=== PATIENT | male | born 1935 | race Caucasian/White ===

== ENCOUNTER 2019-07-29 08:00 | Outpatient (CLI) | payer MEDICARE, OTHER, SELFPAY | END 2019-07-29 09:00 | disposition home or self-care (01) | LOC: SPT 12-29 15:03 | PROVIDERS: PCP Family Medicine; Referring Provider Orthopaedic Surgery; Visit Provider Orthopaedic Surgery | DX: Z46.89 Encounter for fitting and adjustment of other specified devices (principal); M17.12 Unilateral primary osteoarthritis, left knee | CPT/HCPCS: L1812 ==

== ENCOUNTER 2019-10-19 09:47 | Day surgery (SDC) | payer MEDICARE, OTHER, SELFPAY ==
--- NOTE | 2019-10-12 12:34 | ANES.PREANE2 ---
Pre-Anesthetic Assessment Pre-Anesthetic Assessment: Height/Weight: Height 1.68 m Weight 72.575 kg Preop Diagnosis: DJD left knee Proposed Procedure: Operation Date: 10/19/19 12:00 Proposed Procedures p Total Knee Arthroplasty w/ imageless computer navigation 20326 [id number] M17.0(Left) - Franklin Newton DO Familial anesthetic complications: None Social: Social History: No alcohol and No tobacco Comment: chews tobacco Exam: Pre-Anes Outpt Exam: alert, oriented x 3, clear to auscultation bilaterally and regular rate & rhythm Airway: Cervical ROM: WNL MP: 4 Dentition: Full Pulmonary: Pulmonary: None reported CV/HEM: CV/HEM: HTN : : None reported Hepatic: Hepatic: None reported GI: GI: PUD Metabolic: Metabolic: Hyperlipidemia Neuropsych: Neuropsych: None reported Anesthetic Plan: ASA status: 2 Anesthesia: General and Regional (specify below) Risk of > 500 ml blood loss (7ml/kg in children): No PFSH Anesthesia PFSH: Medical History Acute cystitis with hematuria Acute kidney injury 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 Mother , GANGRENE IN STOMACH No problems noted. Social History Smoking and tobacco status: unknown if ever smoked Alcohol intake: never Adopted: No Caregiver/support person: No Lives independently: No Household members: spouse Marital status: Current occupational status: retired Data Anesthesia Cardiac Studies: No Data to Display
[2019-10-12 12:49] LABS: Basophils % 0.4 %; Eosinophils % 0.2 %; Hematocrit 33.4 % (42.0-52.0); Hemoglobin 10.1 g/dL (11.7-16.6); Lymphocytes % 9.9 %; Mean Corpuscular HGB Conc 30.2 g/dL (30.0-36.0); Mean Corpuscular Hemoglobin 27.9 pg (28.0-34.0); Mean Corpuscular Volume 92.3 fL (80-94); Mean Platelet Volume 9.4 fL (7.4-10.4); Monocytes # 0.7 10^3/uL (0.2-0.9); Monocytes % 7.1 %; Neutrophils # 8.3 10^3/uL (1.8-7.7); Neutrophils % 81.9 %; Nucleated Red Blood Cells % 0 %; Platelet Count 211 10^3/cmm (130-400); Red Blood Count 3.62 10^6/uL (4.1-5.3); Red Cell Distribution Width 14.8 % (12.1-15.1); White Blood Count 10.1 10^3/uL (4.0-10.0)
[2019-10-12 12:53] LABS: Anion Gap 16.5 (5-19); Blood Urea Nitrogen 31 mg/dL (8-23); Calcium 8.7 mg/dL (8.5-10.5); Carbon Dioxide 21 mmol/L (22-29); Chloride 107 mmol/L (98-107); Glucose 160 mg/dL (65-115); Osmolality Calculated 291 mOsm/kg (285-295); Potassium 4.5 mmol/L (3.5-5.1); Sodium 140 mmol/L (136-145)
[2019-10-12 13:24] LABS: Urine Appearance Turbid (CLEAR); Urine Color Red (Yellow); pH Urine 6.5 (5-7)
[2019-10-12 13:25] LABS: Add Urine Microscopic? YES; Bilirubin Urine Neg (NEGATIVE); Blood Urine 3+ (Negative); Glucose Urine UA Norm (Normal); Ketones Urine Negative (Negative); Leukocyte Esterase Urine Trace (Negative); Nitrate Urine Negative (Negative); Protein Urine 3+ (Negative); RBC Urine TOO NUMEROUS TO CNT /hpf (0-2); Urobilinogen Urine Norm (Negative)
[2019-10-12 13:26] LABS: Add Urine Culture? Yes; Bacteria Urine 3+; Squamous Epithelial Cell Urine 0-4 (0-5)
--- NOTE | 2019-10-19 09:42 | ECG_ITS ---
Measurements Intervals [place] Rate: 63 P: 3 VA: 239 QRS: -26 QRSD: 90 T: 9 QT: 404 QTc: 416 SINUS RHYTHM WITH FIRST DEGREE AV BLOCK BORDERLINE LEFT AXIS DEVIATION [QRS AXIS < -20] Compared to ECG 01/08/2019 13:19:47 First degree AV block now present Ventricular premature complex(es) no longer present Electronically Signed On 10-19-2019 19:30:55 CDT by Landon Hunter M.D. [id number]
[2019-10-19 10:14] VITALS: BMI 25.8
--- NOTE | 2019-10-19 10:55 | SUR.PREOP ---
1015 Upon physical assessment, dime sized wound to left knee noted. Patient states he changed a tire 3-4 weeks ago and scraped the knee on a rock. Scabbed area with slight redness noted. No signs of infection such as increased redness, drainage, swelling, or warmth noted. Dr. Newton notified. Surgery cancelled. Patient to follow-up in ortho clinic on . UA and ECG completed prior to patient going home.
[2019-10-19 11:03] LABS: Add Urine Microscopic? YES; Bilirubin Urine Neg (NEGATIVE); Blood Urine 2+ (Negative); Glucose Urine UA Norm (Normal); Ketones Urine Negative (Negative); Leukocyte Esterase Urine 1+ (Negative); Nitrate Urine Positive (Negative); Protein Urine Neg (Negative); Urine Appearance Clear (CLEAR); Urine Color Yellow (Yellow); Urobilinogen Urine Norm (Negative)
[2019-10-19 11:23] LABS: Add Urine Culture? Yes; Bacteria Urine 1+; Mucus Urine TRACE; RBC Urine 0-4 /hpf (0-2); Squamous Epithelial Cell Urine 0-4 (0-5)
== END 2019-10-19 10:45 ==
LOC: OR 09:48
PROVIDERS: PCP Family Medicine; Visit Provider Orthopaedic Surgery
PROC: (CPT 27447; principal; 2019-10-19 12:00)
DX: M17.12 Unilateral primary osteoarthritis, left knee (principal); Z53.8 Procedure and treatment not carried out for other reasons; I10 Essential (primary) hypertension; Z87.11 Personal history of peptic ulcer disease; E78.5 Hyperlipidemia, unspecified; F17.220 Nicotine dependence, chewing tobacco, uncomplicated; N40.1 Benign prostatic hyperplasia with lower urinary tract symptoms; N13.8 Other obstructive and reflux uropathy
CPT/HCPCS: 80048; 81001; 85025; 87077; 87086; 87186; 93005

== ENCOUNTER 2019-11-06 11:34 | Outpatient (CLI) | payer MEDICARE, OTHER, SELFPAY | END 2019-11-06 11:35 | disposition home or self-care (01) | LOC: LAB 11:42 | PROVIDERS: PCP Family Medicine; Visit Provider Orthopaedic Surgery | DX: N39.0 Urinary tract infection, site not specified (principal) | CPT/HCPCS: 87086 ==

== ENCOUNTER 2019-11-19 | Day surgery (SDC) | payer MEDICARE, OTHER, SELFPAY ==
[2019-11-19 11:05] VITALS: BMI 25.4
[2019-11-19 11:35] LABS: Basophils % 0.7 %; Eosinophils # 0.1 10^3/uL (0.0-0.8); Eosinophils % 2.4 %; Hematocrit 33.1 % (42.0-52.0); Hemoglobin 9.8 g/dL (11.7-16.6); Lymphocytes # 1.9 10^3/uL (0.8-4.8); Lymphocytes % 32.9 %; Mean Corpuscular HGB Conc 29.6 g/dL (30.0-36.0); Mean Corpuscular Hemoglobin 27.6 pg (28.0-34.0); Mean Corpuscular Volume 93.2 fL (80-94); Mean Platelet Volume 9.3 fL (7.4-10.4); Monocytes # 0.5 10^3/uL (0.2-0.9); Monocytes % 8.3 %; Neutrophils # 3.18 10^3/uL (1.8-7.7); Neutrophils % 55.4 %; Nucleated Red Blood Cells % 0 %; Platelet Count 200 10^3/cmm (130-400); Red Blood Count 3.55 10^6/uL (4.1-5.3); Red Cell Distribution Width 14.6 % (12.1-15.1); White Blood Count 5.8 10^3/uL (4.0-10.0)
--- NOTE | 2019-11-19 11:45 | ANES.PREANE2 ---
Pre-Anesthetic Assessment Pre-Anesthetic Assessment: Height/Weight: Height 1.68 m Weight 71.668 kg Preop Diagnosis: DJD left knee Proposed Procedure: Operation Date: 11/20/19 07:00 Proposed Procedures p Total Knee Arthroplasty/with imageless computer navication 08304 [id number] M17.0(Left) - Franklin Newton DO Social: Social History: No alcohol and No tobacco Exam: Pre-Anes Outpt Exam: alert, oriented x 3, clear to auscultation bilaterally and regular rate & rhythm Airway: Submandibular: WNL Cervical ROM: WNL MP: 1 Dentition: False (upper and lower) History/ROS: No significant history except as noted Pulmonary: Pulmonary: None reported CV/HEM: CV/HEM: HTN : Comments: self caths Hepatic: Hepatic: None reported GI: GI: None reported Metabolic: Metabolic: DM and Hyperlipidemia Musc/skel: Musc/skel: OA/DJD Neuropsych: Neuropsych: None reported Anesthetic Plan: ASA status: 3 Anesthesia: Anesthesia Evaluation, Eval. 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 Mother , GANGRENE IN STOMACH No problems noted. Social History Smoking and tobacco status: unknown if ever smoked Alcohol intake: never Adopted: No Caregiver/support person: No Lives independently: No Household members: spouse Marital status: Current occupational status: retired Data Anesthesia CBC & Chem 7: 11/19/19 11:00 Other Labs: Laboratory Results - last 48 hr 11/19/19 11:00 WBC 5.8 RBC 3.55 L Hgb 9.8 L Hct 33.1 L MCV 93.2 MCH 27.6 L MCHC 29.6 L RDW 14.6 Plt Count 200 MPV 9.3 Neut % (Auto) 55.4 Lymph % (Auto) 32.9 [place] % (Auto) 8.3 Eos % (Auto) 2.4 Baso % (Auto) 0.7 Neut # (Auto) 3.18 Lymph # (Auto) 1.9 [place] # (Auto) 0.5 Eos # (Auto) 0.1 Baso # (Auto) 0.0 Nucleated RBC % (auto) 0 Nucleated RBCs # 0.0 Cardiac Studies: No Data to Display
[2019-11-19 11:53] LABS: Anion Gap 14.1 (5-19); Blood Urea Nitrogen 18 mg/dL (8-23); Calcium 8.9 mg/dL (8.5-10.5); Carbon Dioxide 24 mmol/L (22-29); Chloride 108 mmol/L (98-107); Glucose 135 mg/dL (65-115); Osmolality Calculated 293 mOsm/kg (285-295); Potassium 4.1 mmol/L (3.5-5.1); Sodium 142 mmol/L (136-145)
[2019-11-19 12:23] LABS: Add Urine Culture? Yes; Bacteria Urine TRACE; Bilirubin Urine Neg (NEGATIVE); Blood Urine 2+ (Negative); Glucose Urine UA Norm (Normal); Ketones Urine Negative (Negative); Leukocyte Esterase Urine Trace (Negative); Nitrate Urine Negative (Negative); Protein Urine Neg (Negative); Specific Gravity, Urine 1.015 (1.005-1.030); Squamous Epithelial Cell Urine 15-25 (0-5); Urine Appearance Clear (CLEAR); Urine Color Straw (Yellow); Urobilinogen Urine Norm (Negative); WBC Urine 15-25 /hpf (0-5)
--- NOTE | 2019-11-19 14:04 | ECG_ITS ---
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 Measurements Intervals [place] Rate: 52 P: 43 NV: 261 QRS: -15 QRSD: 86 T: 37 QT: 417 QTc: 390 Interpretive Statements SINUS BRADYCARDIA WITH FIRST DEGREE AV BLOCK POSSIBLE RIGHT VENTRICULAR CONDUCTION DELAY [RSR (QR) IN V1/V2] Compared to ECG 10/19/2019 10:59:14 Sinus rhythm no longer present Electronically Signed On 11-19-2019 17:18:40 CDT by Madisyn Fitch M.D. [email or web address].[email or web address]/[id number] f
--- NOTE | 2019-11-19 15:15 | SUR.PREOP ---
call placed to sheng at ortho clinic regarding pt's urine results
== END 2019-11-19 23:00 | disposition home or self-care (01) ==
LOC: OPS 01-04 08:50
PROVIDERS: Anesthesiology; PCP Family Medicine; Visit Provider Orthopaedic Surgery
DX: Z01.818 Encounter for other preprocedural examination (principal); M17.12 Unilateral primary osteoarthritis, left knee
CPT/HCPCS: 80048; 81001; 85025; 86850; 86900; 87086; 93005

== ENCOUNTER → 2020-01-01 08:59 | Outpatient (BNVA) | payer MEDICARE, OTHER, SELFPAY | PROVIDERS: PCP Family Medicine; Visit Provider Urology | DX: T83.511A Infection and inflammatory reaction due to indwelling urethral catheter, initial encounter (principal); N39.0 Urinary tract infection, site not specified; Y83.8 Other surgical procedures as the cause of abnormal reaction of the patient, or of later complication, without mention of misadventure at the time of the procedure | CPT/HCPCS: 80053; 81001; 87077; 87086; 87186 ==

== ENCOUNTER → 2020-01-15 11:37 | Outpatient (BNVA) | payer MEDICARE, OTHER, SELFPAY | PROVIDERS: PCP Family Medicine; Visit Provider Urology | DX: N30.20 Other chronic cystitis without hematuria (principal) | CPT/HCPCS: 80053; 81001 ==

== ENCOUNTER 2020-02-01 15:00 | Inpatient (IN) | payer MEDICARE, OTHER, SELFPAY ==
[2020-02-01] VITALS (26 sets, daily range): BP systolic 73–124; BP diastolic 47–68; PULSE 62–107; RESP 13–29; TEMP 36.6–36.7; O2SAT 91–100; BMI 22.8
--- NOTE | 2020-02-01 15:28 | XRR_ITS ---
PROCEDURE INFORMATION: Exam: XR Chest, 1 View Exam date and time: 02/01/2020 3:54 PM Age: 84 years old Clinical indication: Cough and dyspnea; Additional info: Dyspnea/cough TECHNIQUE: Imaging protocol: XR of the chest Views: 1 view. COMPARISON: CR Chest 1 [place] [id number] 01/08/2019 4:09 AM FINDINGS: Lungs: Unremarkable. No consolidation. Pleural space: Unremarkable. No pleural effusion. No pneumothorax. Heart/Mediastinum: Unremarkable. No cardiomegaly. Bones/joints: Unremarkable. XR/XR chest 1V portable [id number] IMPRESSION: No acute findings.
--- NOTE | 2020-02-01 15:28 | ECG_ITS ---
[facility] Test Date: 2020-02-01 Pat Name: Aung Lizarraga Department: Room: Gender: Male Signs Sales Representative: : 1935 Requested By: Cale Meneses Order Number: [id number] Erika MD: Nick Mckeon M.D. Measurements Intervals [place] Rate: 87 P: -6 WV: 204 QRS: -31 QRSD: 78 T: 0 QT: 195 QTc: 235 Interpretive Statements SINUS RHYTHM LEFT AXIS DEVIATION [QRS AXIS < -30] LOW QRS VOLTAGE IN PRECORDIAL LEADS [QRS DEFLECTION < 1.0 mV IN CHEST LEADS] POSSIBLE ANTERIOR MYOCARDIAL INFARCTION , PROBABLY OLD [30 ms Q WAVE IN V3/V4, OR R < 0.2 mV IN V4] Compared to ECG 11/19/2019 11:20:17 Left-axis deviation now present Low QRS voltage now present Sinus bradycardia no longer present First degree AV block no longer present Electronically Signed On 02-01-2020 18:53:50 CDT by Nick Mckeon M.D. [id number] f
--- NOTE | 2020-02-01 15:49 | W.ED.NAVMDI ---
HPI - Nausea/Vomiting/Diarrhea General: Chief complaint: Nausea/Vomiting/Diarrhea Stated complaint: diahrea/dehydration/ low bp Time Seen by Provider: 02/01/20 15:27 History of Present Illness: HPI Narrative: 84-year-old male presents emergency room with low blood pressure generally weak and not feeling well he has had diarrhea for the last week. He was put on some antibiotics by Dr. Singleton for a bladder issue and then began developing towards the end of the course of very severe diarrhea has persisted its been loose I have noticed it to be dark but he usually takes iron pills he has not had any hematemesis or hematochezia denies any coffee-ground emesis. No fever sweats or chills no recent cough or shortness of breath. MD elicited complaint: nausea and diarrhea Pertinent past history: abdominal surgery Onset (ago): week(s) (1) Description of diarrhea: watery Associated nausea: Yes Associated abdominal pain: Yes Location of pain: Diffuse Pain consistency: constant Severity: moderate Quality: cramping Exacerbating factors: movement Relieving factors: rest Associated symtoms: Reports bloating, fatigue, nausea and weakness; Denies altered mental status, anxiety, change in vision, chest pain, cough, diaphoresis, decreased urine output, dizziness, dysuria, epistaxis, fecal incontinence, fevers/chills, headache(s), anorexia, malaise, myalgias, numbness, palpitations, rash, short of breath, syncope, tenesmus or tinnitus Treatment prior to arrival: immodium Review of Systems Const: Reports: fatigue; Denies: malaise or diaphoresis Eyes: Denies: change in vision ENMT: Denies: tinnitus or epistaxis Card: Denies: chest pain, palpitations or syncope Resp: Denies: dyspnea, productive cough or non-productive cough GI: Reports: nausea and bloating; Denies: fecal incontinence : Denies: dysuria Skin/Breast: Denies: rash or pruritus Neuro: Denies: headache(s) or dizziness Psych: Denies: anxiety PFSH ED PFSH: Medical History Acute cystitis with hematuria Acute kidney injury 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 Mother , GANGRENE IN STOMACH No problems noted. Social History Smoking and tobacco status: unknown if ever smoked Alcohol intake: never Adopted: No Caregiver/support person: No Lives independently: No Household members: spouse Marital status: Current occupational status: retired Physical Exam Const: COMMON NORMALS: no acute distress EXAM LIMITATIONS: no altered mental status GENERAL APPEARANCE: cooperative and comfortable ORIENTATION/CONSCIOUSNESS: Yes awake, Yes oriented to person, Yes oriented to place and Yes oriented to time HENMT: COMMON NORMALS: normocephalic, atraumatic, hearing grossly normal bilaterally, external ears normal, EAC's normal, TM's normal bilaterally, Normal nasal mucous membranes and turbinates present, moist oral mucous membranes and oropharynx normal HEAD & SCALP: normocephalic and atraumatic NOSE: Normal nasal mucous membranes and turbinates present EXTERNAL EAR: Yes external ears normal EXTERNAL AUDITORY CANAL: EAC's normal TYMPANIC MEMBRANE: TM's normal bilaterally Eye: COMMON NORMALS: Equal, round and reactive pupils present, EOMs intact bilaterally, conjunctivae normal and no scleral icterus CONJUNCTIVA: Yes conjunctivae normal PUPIL: Yes Equal, round and reactive pupils present Neck/C-Spine: COMMON NORMALS: full ROM, no lymphadenopathy, supple and no JVD Lymph: LYMPHATIC: no lymphadenopathy noted and no lymphedema noted Resp: COMMON NORMALS: normal respiratory effort, No retractions, No use of accessory muscles and clear to auscultation bilaterally AUSCULTATION: clear to auscultation bilaterally Cardio: COMMON NORMALS: no JVD, regular rate, regular rhythm and No murmurs present (Cardio) RATE: regular rate RHYTHM: regular rhythm GI: AUSCULTATION: Yes normoactive bowel sounds PALPATION: Yes Tenderness to palpation present (GI) (Diffuse no acute guarding or rebound mildly tympanic to percussion mildly distended) and No Guarding due to palpation present (GI) Extremity: COMMON NORMALS: normal to inspection, capillary refill normal, no clubbing, cyanosis or edema, no calf tenderness and no pedal edema Neuro: SENSORIUM/ORIENTATION: Yes oriented to person, Yes oriented to place and Yes oriented to time Skin: COMMON NORMALS: no rashes or lesions noted GENERAL SKIN EXAM: no rashes or lesions noted Course Vital Signs: Vital signs: Vital Signs Temperature 97.6 F 02/02/20 03:30 Pulse Rate 86 02/02/20 06:15 Respiratory Rate 19 H 02/02/20 06:15 Blood Pressure 98/47 02/02/20 06:15 Pulse Oximetry 95 02/02/20 06:15 MDM - Nausea/Vomiting/Diarrhea MDM Narrative: Medical decision making narrative: Diffuse colitis on the CT. Patient does appear septic despite IV fluids he remains relatively hypotensive he also has an acute kidney injury. There is no findings of the liver mass and all lung mass in the lower portion of the lungs from the CT today. Discussed this with the patient and his . Recommend admission for IV hydration to improve his overall renal function he also will need to be started on IV antibiotics suspect he has C. difficile although we have not confirmed with stool sample yet. Additionally he will need to be covered with Levaquin as well until we are able to get culture results back. Discussed with Dr. Lamas and he will admit the patient. Lab Data: Labs: Lab Results 02/01/20 02/01/20 02/01/20 Range/Units 15:30 15:30 15:30 WBC 35.3 H* (4.0-10.0) 10^3/ uL RBC 4.16 (4.1-5.3) 10^6/u L Hgb 12.0 (11.7-16.6) g/dL Hct 37.9 L (42.0-52.0) % MCV 91.1 (80-94) fL MCH 28.8 (28.0-34.0) pg MCHC 31.7 (30.0-36.0) g/dL RDW 15.9 H (12.1-15.1) % Plt Count 318 (130-400) 10^3/c mm MPV 9.1 (7.4-10.4) fL Neut % (Auto) 90.8 % Lymph % (Auto) 3.0 % [place] % (Auto) 3.2 % Eos % (Auto) 0.1 % Baso % (Auto) 0.1 % Neut # (Auto) 32.05 H (1.8-7.7) 10^3/u L Lymph # (Auto) 1.1 (0.8-4.8) 10^3/u L [place] # (Auto) 1.1 H (0.2-0.9) 10^3/u L Eos # (Auto) 0.0 (0.0-0.8) 10^3/u L Baso # (Auto) 0.0 (0.0-0.1) 10^3/u L Nucleated RBC % (a uto) 0 % Nucleated RBCs # 0.0 /100WBC Sodium 133 L (136-145) mmol/L Potassium 4.1 (3.5-5.1) mmol/L Chloride 99 (98-107) mmol/L Carbon Dioxide 15 L (22-29) mmol/L Anion Gap 23.1 H (5-19) BUN 61 H (8-23) mg/dL Creatinine 5.0 H (0.7-1.2) mg/dL GFR Calculation Not Reportable Glucose 110 (65-115) mg/dL Calculated Osmolal ity 294 (285-295) mOsm/k g Lactic Acid (0.5-2.2) mmol/L Calcium 8.4 L (8.5-10.5) mg/dL Total Bilirubin 0.6 (0.15-1.2) mg/dL AST 27 (0-40) U/L ALT 14 (0-41) U/L Alkaline Phosphata se 113 (40-130) IU/L Troponin T Baselin e 98 H (0-15) ng/L Troponin T 120 Min [place] (0-15) ng/L Delta Troponin T (0-10) ABS# Total Protein 6.7 (6.6-8.7) g/dL Albumin 3.1 L (3.5-5.2) g/dL Globulin 3.6 (1.3-4.6) g/dL 02/01/20 02/01/20 Range/Units 17:57 17:57 WBC (4.0-10.0) 10^3/ uL RBC (4.1-5.3) 10^6/u L Hgb (11.7-16.6) g/dL Hct (42.0-52.0) % MCV (80-94) fL MCH (28.0-34.0) pg MCHC (30.0-36.0) g/dL RDW (12.1-15.1) % Plt Count (130-400) 10^3/c mm MPV (7.4-10.4) fL Neut % (Auto) % Lymph % (Auto) % [place] % (Auto) % Eos % (Auto) % Baso % (Auto) % Neut # (Auto) (1.8-7.7) 10^3/u L Lymph # (Auto) (0.8-4.8) 10^3/u L [place] # (Auto) (0.2-0.9) 10^3/u L Eos # (Auto) (0.0-0.8) 10^3/u L Baso # (Auto) (0.0-0.1) 10^3/u L Nucleated RBC % (a uto) % Nucleated RBCs # /100WBC Sodium (136-145) mmol/L Potassium (3.5-5.1) mmol/L Chloride (98-107) mmol/L Carbon Dioxide (22-29) mmol/L Anion Gap (5-19) BUN (8-23) mg/dL Creatinine (0.7-1.2) mg/dL GFR Calculation Glucose (65-115) mg/dL Calculated Osmolal ity (285-295) mOsm/k g Lactic Acid 1.4 (0.5-2.2) mmol/L Calcium (8.5-10.5) mg/dL Total Bilirubin (0.15-1.2) mg/dL AST (0-40) U/L ALT (0-41) U/L Alkaline Phosphata se (40-130) IU/L Troponin T Baselin e (0-15) ng/L Troponin T 120 Min [place] 85.54 H (0-15) ng/L Delta Troponin T -12.46 L (0-10) ABS# Total Protein (6.6-8.7) g/dL Albumin (3.5-5.2) g/dL Globulin (1.3-4.6) g/dL Discharge Plan Discharge Patient Disposition: Admitted As Inpatient Admit Provider: Eusebio Whitaker Clinical Impression: Colitis, Lung mass, Liver mass, Sepsis, Acute kidney injury Condition: Stable Referrals: Sergio Sandoval MD [Primary Care Provider] - Interventions: ED Discharge Assessment Last Done: 02/01/20 19:05 ED Charges Last Done: 02/01/20 19:05 Discharge Date/Time: 02/01/20 19:42 Coding Level of Care Code ED Campus Receptionist for Chg Fwd Exam Comprehensive
[2020-02-01 15:51] LABS: Basophils % 0.1 %; Eosinophils % 0.1 %; Hematocrit 37.9 % (42.0-52.0); Lymphocytes # 1.1 10^3/uL (0.8-4.8); Mean Corpuscular HGB Conc 31.7 g/dL (30.0-36.0); Mean Corpuscular Hemoglobin 28.8 pg (28.0-34.0); Mean Corpuscular Volume 91.1 fL (80-94); Mean Platelet Volume 9.1 fL (7.4-10.4); Monocytes # 1.1 10^3/uL (0.2-0.9); Monocytes % 3.2 %; Neutrophils # 32.05 10^3/uL (1.8-7.7); Neutrophils % 90.8 %; Nucleated Red Blood Cells % 0 %; Platelet Count 318 10^3/cmm (130-400); Red Blood Count 4.16 10^6/uL (4.1-5.3); Red Cell Distribution Width 15.9 % (12.1-15.1)
[2020-02-01 16:07] LABS: Alanine Aminotransferase 14 U/L (0-41); Albumin Level 3.1 g/dL (3.5-5.2); Alkaline Phosphatase 113 IU/L (40-130); Aspartate Amino Transferase 27 U/L (0-40); Blood Urea Nitrogen 61 mg/dL (8-23); Calcium 8.4 mg/dL (8.5-10.5); Carbon Dioxide 15 mmol/L (22-29); Chloride 99 mmol/L (98-107); Globulin 3.6 g/dL (1.3-4.6); Glucose 110 mg/dL (65-115); Osmolality Calculated 294 mOsm/kg (285-295); Sodium 133 mmol/L (136-145); Total Bilirubin 0.6 mg/dL (0.15-1.2); Total Protein 6.7 g/dL (6.6-8.7)
[2020-02-01 16:08] LABS: Troponin(5th) Baseline 98 ng/L (0-15)
[2020-02-01 16:10] LABS: Anion Gap 23.1 (5-19); Potassium 4.1 mmol/L (3.5-5.1)
[2020-02-01 16:24] LABS: Slide Review Slide Review Perform; White Blood Count 35.3 10^3/uL (4.0-10.0)
--- NOTE | 2020-02-01 16:48 | CTR_ITS ---
PROCEDURE INFORMATION: Exam: CT Abdomen And Pelvis Without Contrast Exam date and time: 02/01/2020 4:57 PM Age: 84 years old Clinical indication: Bloating and other: Diarrhea; Prior surgery; Surgery type: Ulcer; Additional info: Abd pain /distention TECHNIQUE: Imaging protocol: Computed tomography of the abdomen and pelvis without contrast. Radiation optimization: All CT scans at this facility use at least one of these dose optimization techniques: automated exposure control; mA and/or kV adjustment per patient size (includes targeted exams where dose is matched to clinical indication); or iterative reconstruction. COMPARISON: CT Abdomen/Pelvis w IV* [id number] 01/08/2019 4:40 AM RADIATION DOSE METRICS: Total DLP (mGy-cm): 483.03 FINDINGS: Lungs: Multifocal new subcentimeter nodules are identified in the bilateral lung bases. Liver: A 2.2 cm hypodense mass is suspected in the right liver on series 2, image 21 and coronal image 33. No associated fat or calcification. Evaluation is limited without intravascular contrast.Findings consistent with fatty infiltration of the liver are identified. Gallbladder and bile ducts: Normal. No calcified stones. No ductal dilation. Pancreas: Normal. No ductal dilation. Spleen: Normal. No splenomegaly. Adrenals: Normal. No mass. Kidneys and ureters: Normal. No hydronephrosis. Stomach and bowel: There is diffuse colon wall thickening. No bowel obstruction or pneumatosis. Appendix: The appendix is visualized and appears normal. Intraperitoneal space: Unremarkable. No free air. No significant fluid collection. Vasculature: Unremarkable. No abdominal aortic aneurysm. Lymph nodes: Unremarkable. No enlarged lymph nodes. Bladder: There is moderate bladder wall thickening. No bladder emphysema or calcification. Reproductive: Unremarkable as visualized. Bones/joints: Degenerative change is identified in the spine. There is no evidence for acute fracture or malalignment. Soft tissues: There is a small fat containing left ventral hernia. CT/CT abdomen pelvis wo con [id number] IMPRESSION: There is diffuse colitis. When compared with 01/08/2019, there are multiple new nodules throughout the lung bases consistent with metastatic disease.If there is desire for further evaluation, a chest CT scan could be performed. There is a new mass in the right liver suspicious for metastatic disease. Radiation Dose CTDIVOL = (mGy): DLP = 483.03 (mGy-cm)
[2020-02-01] MEDS: sodium chloride 0.9% 1,000 ML 999 ML IV (16:49)
--- NOTE | 2020-02-01 17:28 | ECG_ITS ---
[facility] Test Date: 2020-02-01 Pat Name: Aung Lizarraga Department: Room: Gender: Male Independent Sales Representative: : 1935 Requested By: Cale Meneses Order Number: [id number] Erika MD: Nick Mckeon M.D. Measurements Intervals [place] Rate: 81 P: 1 [place]: 214 QRS: -35 QRSD: 146 T: -12 QT: 408 QTc: 475 Interpretive Statements SINUS RHYTHM WITH FIRST DEGREE AV BLOCK WITH OCCASIONAL VENTRICULAR PREMATURE COMPLEXES LEFT AXIS DEVIATION [QRS AXIS < -30] RIGHT BUNDLE BRANCH BLOCK [120+ ms QRS DURATION, UPRIGHT V1, 40+ ms S IN I/aVL/V4/V5/V6] Compared to ECG 02/01/2020 15:58:33 First degree AV block now present Right bundle-branch block now present ST (T wave) deviation no longer present Electronically Signed On 02-01-2020 19:32:59 CDT by Nick Mckeon M.D. [id number] f
[2020-02-01] MEDS: metroNIDAZOLE IV 500 MG/100 ML PREMIX 100 MG IV ×2 (17:40→23:33)
[2020-02-01] MEDS: sodium chloride 0.9% 1,932.3 ML 1932.3 ML IV (17:40)
[2020-02-01 18:28] LABS: Lactic Sepsis W/Reflex 1.4 mmol/L (0.5-2.2); Troponin 5 2HR 85.54 ng/L (0-15)
--- NOTE | 2020-02-01 19:05 | PC.NURSE ---
Report received from FAVIAN Noguera and care transferred to FAVIAN Anderson
--- NOTE | 2020-02-01 20:07 | PM.HP ---
Providers/Chief Complaint Admitting Physician: Eusebio Whitaker Primary Care Provider: Sergio Sandoval MD Chief Complaint: diahrea/dehydration/ low bp History of Present Illness Aung Lizarraga is a 84 year old male with past medical history of chronic or recurrent urinary tract infection who has been on different antibiotics recently. He presents to emergency room with complaints of diarrhea which started about 10 days ago. He reports about 3 episodes every day. Reports generalized mild abdominal pain. Denies rectal blood or black stool. Denies nausea or vomiting. In emergency room he is found to have diffuse colitis. CBC shows elevated leukocytosis. Chemistry panel shows acute kidney injury with creatinine of 5. He is hypotensive mildly in emergency room. He was given IV fluids. Reports feeling better. Denies similar episodes in the past. The patient denies any chest pain, shortness of breath, cough, palpitations, fever or chills. He reports cloudy urine. Denies dysuria. No blood in the urine. No back pain. Review of Systems General: Reports: 10 or more systems reviewed and unremarkable except in HPI and below Medications/Allergies Home Medications Medication Instructions Recorded Confirmed Last Taken Type acetaminophen 325 mg capsule 650 mg PO Q6H PRN 05/27/19 02/01/20 10/18/19 History glipizide 5 mg tablet 5 mg PO DAILY tab 05/27/19 02/01/20 02/01/20 History metoprolol tartrate 25 mg tablet 12.5 mg PO BID 05/27/19 02/01/20 11/19/19 History pantoprazole 20 mg tablet,delayed 20 mg PO BID 05/27/19 02/01/20 02/01/20 History release simvastatin 20 mg tablet 20 mg PO DAILY tab 05/27/19 02/01/20 01/31/20 History tamsulosin 0.4 mg capsule 0.4 mg PO DAILY #90 cap 09/09/19 02/01/20 01/31/20 Rx naproxen sodium [Aleve] 220 mg PO Q12H PRN 11/19/19 02/01/20 11/18/19 History ferrous sulfate 325 mg (65 mg 325 mg PO BID 12/04/19 02/01/20 02/01/20 History iron) tablet sulfamethoxazole 800 0.5 tab PO BID #30 tab 01/15/20 02/01/20 Unknown Rx mg-trimethoprim 160 mg tablet lisinopril 20 mg PO BID 02/01/20 02/01/20 02/01/20 History Allergies Allergy/AdvReac Type Severity Reaction Status Date / Time No Known Allergies Allergy Verified 02/01/20 15:16 PFSH Acute PFSH: Medical History Acute cystitis with hematuria Acute kidney injury 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 Mother , GANGRENE IN STOMACH No problems noted. Social History Smoking and tobacco status: unknown if ever smoked Alcohol intake: never Adopted: No Caregiver/support person: No Lives independently: No Household members: spouse Marital status: Current occupational status: retired Vitals/I&O/Wt Last Vital Signs Temp 97.8 F 02/01/20 15:10 Pulse 85 02/01/20 19:41 Resp 15 02/01/20 19:41 BP 90/48 02/01/20 19:41 Pulse Ox 98 02/01/20 19:41 02/01/20 02/01/20 02/01/20 06:59 14:59 22:59 Intake Total 3032.3 / 3032.3 Balance 3032.3 / 3032.3 Weight last 48 hrs Weight 64.41 kg Physical Exam Narrative: EXAM NARRATIVE: The patient is awake alert and oriented. No acute distress. Responses are adequate. Skin is warm and dry. Dry mucous membranes. Neck is supple. No JVD Lungs clear bilaterally. No respiratory distress Heart S1, S2, regular Abdomen distended, soft, no guarding, bowel sounds are present. Slightly tender diffusely. Extremities trace edema no cyanosis no calf tenderness bilaterally Neuro exam is nonfocal. Normal speech. Data : 02/01/20 15:30 02/01/20 15:30 Other Labs: Laboratory Results WBC 35.3 10^3/uL (4.0-10.0) H* 02/01/20 15:30 RBC 4.16 10^6/uL (4.1-5.3) 02/01/20 15:30 Hgb 12.0 g/dL (11.7-16.6) 02/01/20 15:30 Hct 37.9 % (42.0-52.0) L 02/01/20 15:30 MCV 91.1 fL (80-94) 02/01/20 15:30 MCH 28.8 pg (28.0-34.0) 02/01/20 15:30 MCHC 31.7 g/dL (30.0-36.0) 02/01/20 15:30 RDW 15.9 % (12.1-15.1) H 02/01/20 15:30 Plt Count 318 10^3/cmm (130-400) 02/01/20 15:30 MPV 9.1 fL (7.4-10.4) 02/01/20 15:30 Neut % (Auto) 90.8 % 02/01/20 15:30 Lymph % (Auto) 3.0 % 02/01/20 15:30 [place] % (Auto) 3.2 % 02/01/20 15:30 Eos % (Auto) 0.1 % 02/01/20 15:30 Baso % (Auto) 0.1 % 02/01/20 15:30 Neut # (Auto) 32.05 10^3/uL (1.8-7.7) H 02/01/20 15:30 Lymph # (Auto) 1.1 10^3/uL (0.8-4.8) 02/01/20 15:30 [place] # (Auto) 1.1 10^3/uL (0.2-0.9) H 02/01/20 15:30 Eos # (Auto) 0.0 10^3/uL (0.0-0.8) 02/01/20 15:30 Baso # (Auto) 0.0 10^3/uL (0.0-0.1) 02/01/20 15:30 Nucleated RBC % (auto) 0 % 02/01/20 15:30 Nucleated RBCs # 0.0 /100WBC 02/01/20 15:30 Sodium 133 mmol/L (136-145) L 02/01/20 15:30 Potassium 4.1 mmol/L (3.5-5.1) 02/01/20 15:30 Chloride 99 mmol/L (98-107) 02/01/20 15:30 Carbon Dioxide 15 mmol/L (22-29) L 02/01/20 15:30 Anion Gap 23.1 (5-19) H 02/01/20 15:30 BUN 61 mg/dL (8-23) H 02/01/20 15:30 Creatinine 5.0 mg/dL (0.7-1.2) H 02/01/20 15:30 GFR Calculation Not Reportable 02/01/20 15:30 Glucose 110 mg/dL (65-115) 02/01/20 15:30 Calculated Osmolality 294 mOsm/kg (285-295) 02/01/20 15:30 Lactic Acid 1.4 mmol/L (0.5-2.2) 02/01/20 17:57 Calcium 8.4 mg/dL (8.5-10.5) L 02/01/20 15:30 Total Bilirubin 0.6 mg/dL (0.15-1.2) 02/01/20 15:30 AST 27 U/L (0-40) 02/01/20 15:30 ALT 14 U/L (0-41) 02/01/20 15:30 Alkaline Phosphatase 113 IU/L (40-130) 02/01/20 15:30 Troponin T Baseline 98 ng/L (0-15) H 02/01/20 15:30 Troponin T 120 Minute 85.54 ng/L (0-15) H 02/01/20 17:57 Delta Troponin T -12.46 ABS# (0-10) L 02/01/20 17:57 Total Protein 6.7 g/dL (6.6-8.7) 02/01/20 15:30 Albumin 3.1 g/dL (3.5-5.2) L 02/01/20 15:30 Globulin 3.6 g/dL (1.3-4.6) 02/01/20 15:30 Impressions Chest X-Ray 02/01/20 15:28 IMPRESSION: No acute findings. Abdomen/Pelvis CT 02/01/20 16:48 IMPRESSION: There is diffuse colitis. When compared with 01/08/2019, there are multiple new nodules throughout the lung bases consistent with metastatic disease.If there is desire for further evaluation, a chest CT scan could be performed. There is a new mass in the right liver suspicious for metastatic disease. Radiation Dose CTDIVOL = (mGy): DLP = 483.03 (mGy-cm) A&P Additional A&P Information Severe sepsis and septic shock secondary to suspected C. difficile colitis. Patient was recently on antibiotics. He is going to ICU. C. difficile testing is pending. Home antibiotics are discontinued. We will continue IV fluids. He will receive IV metronidazole and p.o. vancomycin. When I discussed the case with ED physician I asked for surgical consult. Hopefully it was requested already. Acute kidney injury. Probably multifactorial. I suspect prerenal cause and ATN. Home antibiotics, lisinopril, naproxen are being discontinued. I am requesting telemetry nephrology consultation. Sadler catheter is ordered. Continuing IV fluids. Hyponatremia. Probably secondary to the above. Will monitor. Acute metabolic acidosis secondary to acute kidney injury. Management with IV fluids. Will wait for additional recommendations by pre k special education teacher. History of peptic ulcer disease. We will continue home PPI. Liver metastatic lesions. Will discuss with the patient after initial stabilization. DVT prophylaxis. Heparin. Elevated troponin. I suspect this is demand ischemia. Currently no chest pain. We will continue monitoring him on telemetry. We will trace troponin. The plan of care was discussed with the patient. He verbalized understanding and agreement. Attestations Medical Necessity Statement*: Based on my assessment of his current condition, diagnosis, plan of care I expect that he will spend more than 2 midnights in the hospital. Currently requires ICU admission. Critical care time spent on this encounter is 60 minutes. Coding Level of Care Code Acute Email Marketing Intern for Griffin Munson
[2020-02-01] MEDS: heparin 5,000 unit/mL INJ 1 mL 5000 UNIT SUBCUT (21:05)
[2020-02-01] MEDS: sodium chloride 0.9% 1,000 ML 100 ML IV (21:06)
[2020-02-01] MEDS: dextrose 50% syringe 50 mL IVP (21:28)
--- NOTE | 2020-02-01 21:28 | ECG_ITS ---
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 Measurements Intervals [place] Rate: 92 P: 27 ID: [id number] QRS: -54 QRSD: 145 T: 18 QT: 417 QTc: 516 Interpretive Statements SINUS RHYTHM RIGHT BUNDLE BRANCH BLOCK [120+ ms QRS DURATION, UPRIGHT V1, 40+ ms S IN I/aVL/V4/V5/V6] LEFT ANTERIOR FASCICULAR BLOCK [QRS AXIS <= -45, QR IN I, RS IN II] POSSIBLE ANTERIOR MYOCARDIAL INFARCTION [30 ms Q WAVE IN V3/V4, OR R < 0.2 mV IN V4], OF INDETERMINATE AGE Compared to ECG 02/01/2020 16:14:37 Left anterior fascicular block now present Myocardial infarct finding now present First degree AV block no longer present Left-axis deviation no longer present Electronically Signed On 02-02-2020 18:35:03 CDT by Steven Otoole M.D. [email or web address]
[2020-02-01] MEDS: dextrose 5 % 500 ML 100 ML IV (21:32)
[2020-02-01 21:47] LABS: Glucose 41 mg/dL (65-115)
[2020-02-01 21:50] LABS: Troponin 5 6HR 81.01 ng/L (0-15)
[2020-02-01 22:24] LABS: Glucose Point of Care 131 mg/dL (70-110)
[2020-02-01 23:44] LABS: Glucose Point of Care 107 mg/dL (70-110)
[2020-02-01] MEDS: dextrose 5%-sod chloride 0.45% 1,000 ML 30 ML IV (23:46)
[2020-02-02] VITALS (44 sets, daily range): BP systolic 89–127; BP diastolic 43–63; PULSE 73–105; RESP 16–29; TEMP 36.4–37.2; O2SAT 95–99; BMI 23.8
[2020-02-02 01:00] LABS: Glucose Point of Care 38 mg/dL (70-110)
[2020-02-02 01:00] LABS: Glucose Point of Care 39 mg/dL (70-110)
[2020-02-02 03:39] LABS: Basophils # 0.2 10^3/uL (0.0-0.1); Basophils % 0.6 %; Eosinophils # 0.2 10^3/uL (0.0-0.8); Eosinophils % 0.7 %; Hematocrit 32.2 % (42.0-52.0); Hemoglobin 10.2 g/dL (11.7-16.6); Lymphocytes # 0.9 10^3/uL (0.8-4.8); Lymphocytes % 3.2 %; Mean Corpuscular HGB Conc 31.7 g/dL (30.0-36.0); Mean Corpuscular Hemoglobin 28.8 pg (28.0-34.0); Mean Platelet Volume 9.2 fL (7.4-10.4); Monocytes # 0.8 10^3/uL (0.2-0.9); Monocytes % 2.9 %; Neutrophils # 24.93 10^3/uL (1.8-7.7); Neutrophils % 90.7 %; Nucleated Red Blood Cells % 0 %; Platelet Count 270 10^3/cmm (130-400); Red Blood Count 3.54 10^6/uL (4.1-5.3); Red Cell Distribution Width 15.8 % (12.1-15.1); White Blood Count 27.5 10^3/uL (4.0-10.0)
[2020-02-02 03:58] LABS: Alanine Aminotransferase 12 U/L (0-41); Albumin Level 2.3 g/dL (3.5-5.2); Alkaline Phosphatase 80 IU/L (40-130); Anion Gap 17.5 (5-19); Aspartate Amino Transferase 24 U/L (0-40); Blood Urea Nitrogen 58 mg/dL (8-23); Calcium 7.7 mg/dL (8.5-10.5); Carbon Dioxide 16 mmol/L (22-29); Chloride 106 mmol/L (98-107); Globulin 2.9 g/dL (1.3-4.6); Glucose 85 mg/dL (65-115); Osmolality Calculated 297 mOsm/kg (285-295); Potassium 3.5 mmol/L (3.5-5.1); Sodium 136 mmol/L (136-145); Total Bilirubin 0.3 mg/dL (0.15-1.2); Total Protein 5.2 g/dL (6.6-8.7)
[2020-02-02 04:04] LABS: Magnesium 1.9 mg/dL (1.7-2.3)
[2020-02-02] MEDS: metroNIDAZOLE IV 500 MG/100 ML PREMIX 100 MG IV ×4 (05:12→23:22)
[2020-02-02] MEDS: dextrose 50% syringe 50 mL 25 ML IVP (05:20)
--- NOTE | 2020-02-02 06:36 | PC.NURSE ---
Pt A&O x4, Chip.Min assist with repo. LS clear and sats well on RA. Initiated contact prec as stool sample needed to check for c diff. Had earlier c/o abd pain 07/20 but is currently pain free. NPO and oral care done freq. TEDs applied. Scrotum is slightly reddened and barried applied to pt after each BM/inc care. Has been inc of stool x 4 this shift. Initial one was after arriving to the floor and it was greenish; last 3 stool have been unformed black. Asked pt how long his stools have been that color and he states since the doctor put me on that medicine . Also states that they come fast, I can't control them. Sample sent to lab and pt is c diff +. Pt has had issues with hypoglycemia. Initial test was 39 and RN rechecked and it was 38. Given 1 amp D50 and given 500 mL bag D5 per protocol. Serum gluc was 41. MD made aware and he changed IVF and ordered gluc checks every 6 hrs. BS at 2220 was 131, at 2335 107. This morning after 0500, he was 65. Given 1/2 amp D50. Recheck around 0630 was 128. Rhythm SR and has had freq PVCs at times with occ bigeminy. Currently resting quietly and in no acute distress
--- NOTE | 2020-02-02 07:19 | P.CONIM_ITS ---
Providers/Reason For Consult Consulting Physican/Specialty*: General Surgery Dixon Ge MD Reason for Consult*: C. difficile colitis. Attending Physician: Eusebio Whitaker Primary Care Provider: Sergio Sandoval MD History of Present Illness History of Present Illness Aung Lizarraga is a 84 year old male admitted yesterday with a 7 to 10-day history of loose stool. He had recently been on a 3-week course of antibiotics for urinary symptoms/chronic cystitis. He says the diarrhea started about 3 to 4 days before he finished his course of antibiotics this past week. He denies seeing any blood in the loose stool. A CAT scan showed diffuse colitis. He had a C. difficile test which turned out to be positive. Review of Systems General: Reports: 10 or more systems reviewed and unremarkable except in HPI and below Const: Denies: fever(s) GI: Denies: abdominal pain : Denies: hematuria Meds/Allergies Home Medications and Allergies Home Medications Medication Instructions Recorded Confirmed Last Taken Type acetaminophen 325 mg capsule 650 mg PO Q6H PRN 05/27/19 02/01/20 10/18/19 History glipizide 5 mg tablet 5 mg PO DAILY tab 05/27/19 02/01/20 02/01/20 History metoprolol tartrate 25 mg tablet 12.5 mg PO BID 05/27/19 02/01/20 11/19/19 History pantoprazole 20 mg tablet,delayed 20 mg PO BID 05/27/19 02/01/20 02/01/20 History release simvastatin 20 mg tablet 20 mg PO DAILY tab 05/27/19 02/01/20 01/31/20 History tamsulosin 0.4 mg capsule 0.4 mg PO DAILY #90 cap 09/09/19 02/01/20 01/31/20 Rx naproxen sodium [Aleve] 220 mg PO Q12H PRN 11/19/19 02/01/20 11/18/19 History ferrous sulfate 325 mg (65 mg 325 mg PO BID 12/04/19 02/01/20 02/01/20 History iron) tablet sulfamethoxazole 800 0.5 tab PO BID #30 tab 01/15/20 02/01/20 Unknown Rx mg-trimethoprim 160 mg tablet lisinopril 20 mg PO BID 02/01/20 02/01/20 02/01/20 History Allergies Allergy/AdvReac Type Severity Reaction Status Date / Time No Known Allergies Allergy Verified 02/01/20 15:16 Current Medications Current Medications Generic Name Dose Route Start Last Admin Trade Name Freq PRN Reason Stop Dose Admin Dextrose 25 ml 02/01/20 20:01 02/02/20 05:20 D50w IVP 25 ml ONCE PRN Administration hypoglycemia protocol Protocol Dextrose 50 ml 02/01/20 20:01 02/01/20 21:28 D50w IVP 50 ml PRN PRN Administration hypoglycemia protocol Protocol Heparin Sodium (Beef Lung) 5,000 unit 02/01/20 20:00 02/01/20 21:05 Heparin SUBCUT 5,000 unit Q12H MALDONADO Administration Metronidazole 500 mg in 100 mls @ 100 mls/hr 02/02/20 00:00 02/02/20 06:57 Flagyl Iv IV Infused Q6H MALDONADO Infusion Protocol Dextrose 500 mls @ 100 mls/hr 02/01/20 20:01 02/02/20 06:57 D5w IV Infused ONCE PRN Infusion Adult Acute Hypoglycemia Prot Protocol Dextrose/Sodium Chloride 1,000 mls @ 30 mls/hr 02/01/20 23:00 02/01/20 23:46 Dextrose 5%-Sod Chloride 0.45% IV 30 mls/hr .Q24H MADLONADO Administration Insulin Aspart 0 unit 02/01/20 21:00 02/02/20 05:39 Novolog SUBCUT Not Given Q6H MALDONADO Protocol Vancomycin HCl 250 mg 02/01/20 21:00 02/01/20 21:47 Vancocin PO 250 mg QID MALDONADO Administration PFSH Acute PFSH: Medical History (Updated 02/02/20 @ 07:25 by Dixon Ge MD) Acute cystitis with hematuria Acute kidney injury 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 Mother , GANGRENE IN STOMACH No problems noted. Social History (Updated 02/02/20 @ 07:38 by Dixon Ge MD) Smoking and tobacco status: current some day smoker smokeless tobacco Alcohol intake: never Adopted: No Caregiver/support person: No Lives independently: No Household members: spouse Marital status: Current occupational status: retired Vitals/I&O/Wt Last Vital Signs Temp 97.6 F 02/02/20 03:30 Pulse 86 02/02/20 06:15 Resp 19 H 02/02/20 06:15 BP 98/47 02/02/20 06:15 Pulse Ox 95 02/02/20 06:15 02/01/20 02/02/20 02/02/20 22:59 06:59 14:59 Intake Total 3032.3 / 3732.3 700 / 3732.3 0 / 0 Output Total 450 / 450 Balance 3032.3 / 3282.3 700 / 3282.3 -450 / -450 Weight last 48 hrs Weight 147 lb 9.6 oz Weight 143 lb 14.4 oz Weight 142 lb Physical Exam Narrative: EXAM NARRATIVE: The patient was encountered in his room in the intensive care unit. He does not appear to be in any distress. The pupils are equal. No carotid bruits are heard. The lungs are clear anteriorly. The heart is regular. The abdomen reveals hypoactive bowel sounds and seems to be slightly softly distended but has minimal scattered tenderness. No obvious masses are palpated. The extremities reveal no significant edema. Neurologically the patient is grossly intact. Urinary Catheter Management^: Coude Latex: Cath Placed During This Visit: yes Reason for Continuing Indwelling Catheter: Accurate Measurement of Urinary Output in Critically Ill Patients Urinary Catheter Date of Insertion: 02/01/20 Urinary Catheter Time of Insertion: 22:05 Data Micro: Micro: Microbiology 02/01/20 22:23 C.difficile Toxin B Gene (PCR) - Fin al Stool Imaging^: CT Abd/Pel: Radiologist's impression: CT abdomen/pelvis 02/01/2020 IMPRESSION: There is diffuse colitis. When compared with 01/08/2019, there are multiple new nodules throughout the lung bases consistent with metastatic disease.If there is desire for further evaluation, a chest CT scan could be performed. A&P Assessment and plan (1) Clostridium difficile colitis: The patient has been slightly hypotensive but denies any significant abdominal discomfort currently. He is on oral vancomycin and intravenous metronidazole. I will allow the patient a clear liquid consistent carbohydrate diet. Resume Protonix given patient's history of peptic ulcer disease. I will continue to follow the patient while he is hospitalized. Status: Acute Consult Attestations Medical Necessity Statement: See admitting service's notation. Coding Level of Care Code Acute Multi Operation Machine Operator for Griffin Munson Diagnoses Clostridium difficile colitis A04.72
[2020-02-02] MEDS: pantoprazole 40 mg SDV IVP ×2 (08:36→20:45)
[2020-02-02] MEDS: heparin 5,000 unit/mL INJ 1 mL 5000 UNIT SUBCUT ×2 (08:36→20:45)
--- NOTE | 2020-02-02 11:11 | PM.CONSULT ---
Providers/Reason For Consult Consulting Physican/Specialty*: debora sales md/ telenephrology Reason for Consult*: BECKI, hyponatremia, met acidosis, hyponatremia, Attending Physician: Eusebio Whitaker Primary Care Provider: Sergio Sandoval MD History of Present Illness History of Present Illness Aung Lizarraga is a 84 year old male w/ recurrent cystitis, self cath dependent, home abx dep. 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 Pt is on bactrim/ cephalasporin abx. Pt is here w/ 1-2 weeks of diarrhea and poor appetite. at home he is on naproxen, bactrim, and lisinopril, along w/ glipizide. Pt is here now w/ diarrhea and c diff colitis. also found w/ BECKI, hypoglycemia, and inc AGMA. Review of Systems General: Reports: 10 or more systems reviewed and unremarkable except in HPI and below Narrative: weak, poor appetite. no hannah, + fevers, + abd pain, diarrhea, self cath 2-3 / day at home. no sob, no BARNETT Meds/Allergies Home Medications and Allergies Home Medications Medication Instructions Recorded Confirmed Last Taken Type acetaminophen 325 mg capsule 650 mg PO Q6H PRN 05/27/19 02/01/20 10/18/19 History glipizide 5 mg tablet 5 mg PO DAILY tab 05/27/19 02/01/20 02/01/20 History metoprolol tartrate 25 mg tablet 12.5 mg PO BID 05/27/19 02/01/20 11/19/19 History pantoprazole 20 mg tablet,delayed 20 mg PO BID 05/27/19 02/01/20 02/01/20 History release simvastatin 20 mg tablet 20 mg PO DAILY tab 05/27/19 02/01/20 01/31/20 History tamsulosin 0.4 mg capsule 0.4 mg PO DAILY #90 cap 09/09/19 02/01/20 01/31/20 Rx naproxen sodium [Aleve] 220 mg PO Q12H PRN 11/19/19 02/01/20 11/18/19 History ferrous sulfate 325 mg (65 mg 325 mg PO BID 12/04/19 02/01/20 02/01/20 History iron) tablet sulfamethoxazole 800 0.5 tab PO BID #30 tab 01/15/20 02/01/20 Unknown Rx mg-trimethoprim 160 mg tablet lisinopril 20 mg PO BID 02/01/20 02/01/20 02/01/20 History Allergies Allergy/AdvReac Type Severity Reaction Status Date / Time No Known Allergies Allergy Verified 02/01/20 15:16 Current Medications Current Medications Generic Name Dose Route Start Last Admin Trade Name Freq PRN Reason Stop Dose Admin Dextrose 25 ml 02/01/20 20:01 02/02/20 05:20 D50w IVP 25 ml ONCE PRN Administration hypoglycemia protocol Protocol Dextrose 50 ml 02/01/20 20:01 02/01/20 21:28 D50w IVP 50 ml PRN PRN Administration hypoglycemia protocol Protocol Heparin Sodium (Beef Lung) 5,000 unit 02/01/20 20:00 02/02/20 08:36 Heparin SUBCUT 5,000 unit Q12H MALDONADO Administration Metronidazole 500 mg in 100 mls @ 100 mls/hr 02/02/20 00:00 02/02/20 06:57 Flagyl Iv IV Infused Q6H MALDONADO Infusion Protocol Dextrose 500 mls @ 100 mls/hr 02/01/20 20:01 02/02/20 06:57 D5w IV Infused ONCE PRN Infusion Adult Acute Hypoglycemia Prot Protocol Dextrose/Sodium Chloride 1,000 mls @ 30 mls/hr 02/01/20 23:00 02/01/20 23:46 Dextrose 5%-Sod Chloride 0.45% IV 30 mls/hr .Q24H MALDONADO Administration Insulin Aspart 0 unit 02/01/20 21:00 02/02/20 08:31 Novolog SUBCUT Not Given Q6H MALDONADO Protocol Pantoprazole Sodium 40 mg 02/02/20 08:00 02/02/20 08:36 Protonix IVP 40 mg Q12H MALDONADO Administration Vancomycin HCl 250 mg 02/01/20 21:00 02/02/20 08:36 Vancocin PO 250 mg QID MALDONADO Administration PFSH Acute PFSH: Medical History (Updated 02/02/20 @ 07:25 by Dixon Ge MD) Acute cystitis with hematuria Acute kidney injury 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 Mother , GANGRENE IN STOMACH No problems noted. Social History (Updated 02/02/20 @ 07:38 by Dixon Ge MD) Smoking and tobacco status: current some day smoker smokeless tobacco Alcohol intake: never Adopted: No Caregiver/support person: No Lives independently: No Household members: spouse Marital status: Current occupational status: retired Vitals/I&O/Wt Last Vital Signs Temp 99 F 02/02/20 08:00 Pulse 82 02/02/20 10:00 Resp 20 H 02/02/20 10:00 BP 105/47 02/02/20 10:00 Pulse Ox 95 02/02/20 10:00 02/01/20 02/02/20 02/02/20 22:59 06:59 14:59 Intake Total 3032.3 / 3032.3 700 / 3732.3 0 / 0 Output Total 450 / 450 Balance 3032.3 / 3032.3 700 / 3732.3 -450 / -450 Weight last 48 hrs Weight 66.95 kg Weight 65.272 kg Weight 64.41 kg Physical Exam Narrative: EXAM NARRATIVE: elderly man , NARD in chair vs noted- bp low heent - nc/at, eomi neck supple lungs clear heart reg, +JA abd soft, tender, +BS ext no edema neuro- a,a, o x 2-3 Urinary Catheter Management^: Coude Latex: Cath Placed During This Visit: yes Reason for Continuing Indwelling Catheter: Accurate Measurement of Urinary Output in Critically Ill Patients Urinary Catheter Date of Insertion: 02/01/20 Urinary Catheter Time of Insertion: 22:05 Data Micro: Micro: Microbiology 02/01/20 22:23 C.difficile Toxin B Gene (PCR) - Fin al Stool A&P Additional A&P Information 84 yr old man 1. CKD stage 3b- 4- baseline cr 1.6- 2 from previous obstructive uropathy, age, dm. HE follows w/ Dr. Singleton and has to self cath 2-3 x/ day 2. BECKI- prerenal azotemia vs atn- from diarrhea from c diff colitis, while taking bactrim, lisinopril, and naproxen for knee pain -monitor uop -monitor chemistries -ivf -no hydronephrosis on ct scan -monitorr repeat chemistries 3. hyponatremia improving 4. hypoglycemia from BECKI and taking glipizide. D/C GLIPIZIDE -GIVE D5 1/2 NS W/ KCL 5. met acidosis from becki and diarrhea 6. ct scan w/ lymph nodes and anemia- eval for possible cancer per medicine 7. will need fdc Urology and ID f/u for a safe plan to prevent c diff colitis and treat recurrent cystitis 8. knee pain- limit NSAID use discussed w/ pt, RN, and Dr. Whitaker Consult Attestations Medical Necessity Statement: c diff colitis, BECKI, Time Spent in Patient Care: Greater than 35 minutes Coding Level of Care Code Acute Remote Operations Producer for Griffin Munson
--- NOTE | 2020-02-02 11:15 | PC.NURSE ---
Dr Sharif, telenephrologist seen pt.
[2020-02-02 13:12] LABS: Potassium, Radom Urine 12 mmol/L; Urine Random Sodium 29 mmol/L
[2020-02-02 13:18] LABS: Urine Random Chloride 16 mmol/L
[2020-02-02] MEDS: D5-NS 0.45% + KCL 20 mEq 20 MEQ/1,000 ML BAG 100 MEQ IV ×3 (14:10→23:25)
[2020-02-02 14:31] LABS: Alanine Aminotransferase 17 U/L (0-41); Albumin Level 2.3 g/dL (3.5-5.2); Alkaline Phosphatase 78 IU/L (40-130); Anion Gap 16.5 (5-19); Aspartate Amino Transferase 30 U/L (0-40); Blood Urea Nitrogen 59 mg/dL (8-23); Carbon Dioxide 16 mmol/L (22-29); Chloride 104 mmol/L (98-107); Ferritin 442 ng/mL (30-400); Globulin 2.7 g/dL (1.3-4.6); Glucose 175 mg/dL (65-115); Iron 21 ug/dL (59-158); Magnesium 1.8 mg/dL (1.7-2.3); Osmolality Calculated 297 mOsm/kg (285-295); Percent Saturation 28.3 % (20-50); Potassium 3.5 mmol/L (3.5-5.1); Sodium 133 mmol/L (136-145); Total Bilirubin 0.2 mg/dL (0.15-1.2); Total Iron Binding Capacity 74 mcg/dl; Unsaturated Iron Binding 53 ug/dL (112-347)
[2020-02-02 14:59] LABS: Calcium 7.3 mg/dL (8.5-10.5); Parathyroid Hormone 61.8 pg/mL (15-65)
--- NOTE | 2020-02-02 17:26 | PM.PN ---
Subjective Subjective: Interval history: Patient feels a little better today. Denies abdominal pain. No nausea or vomiting. No fevers or chills. No chest pain, shortness of breath, cough, palpitation. Medications: Reviewed: Yes Medication Review Details: Generic Name Dose Route Start Last Admin Trade Name Freq PRN Reason Stop Dose Admin Dextrose 25 ml 02/01/20 20:01 02/02/20 05:20 D50w IVP 25 ml ONCE PRN Administration hypoglycemia prot ocol Protocol Dextrose 50 ml 02/01/20 20:01 02/01/20 21:28 D50w IVP 50 ml PRN PRN Administration hypoglycemia prot ocol Protocol Heparin Sodium (Be ef Lung) 5,000 unit 02/01/20 20:00 02/02/20 08:36 Heparin SUBCUT 5,000 unit Q12H MALDONADO Administration Metronidazole 500 mg in 100 mls @ 100 mls/hr 02/02/20 00:00 02/02/20 12:45 Flagyl Iv IV Infused Q6H MALDONADO Infusion Protocol Dextrose 500 mls @ 100 mls /hr 02/01/20 20:01 02/02/20 06:57 D5w IV Infused ONCE PRN Infusion Adult Acute Hypog lycemia Prot Protocol Potassium Chloride 20 meq/ 1,010 mls @ 100 m ls/hr 02/02/20 12:30 02/02/20 14:11 Dextrose/Sodium Chloride IV Not Given .Q10H6M MALDONADO Potassium Chloride /Dextrose/Sod Cl 20 meq in 1,000 m ls @ 100 mls/hr 02/02/20 12:30 02/02/20 14:10 D5-Ns 0.45% + Tushar l 20 Meq IV 100 mls/hr .Q10H MALDONADO Administration Pantoprazole Sodiu m 40 mg 02/02/20 08:00 02/02/20 08:36 Protonix IVP 40 mg Q12H MALDONADO Administration Vancomycin HCl 250 mg 02/01/20 21:00 02/02/20 17:24 Vancocin PO 250 mg QID MALDONADO Administration Vitals/I&O/Wt Last Vital Signs Temp 99 F 02/02/20 08:00 Pulse 105 H 02/02/20 12:00 Resp 22 H 02/02/20 12:00 BP 108/59 02/02/20 12:00 Pulse Ox 97 02/02/20 12:00 02/02/20 02/02/20 02/02/20 06:59 14:59 22:59 Intake Total 700 / 3732.3 100 / 100 Output Total 450 / 450 Balance 700 / 3732.3 -350 / -350 Weight last 48 hrs Weight 66.95 kg Weight 65.272 kg Weight 64.41 kg Physical Exam Narrative: EXAM NARRATIVE: The patient is awake alert and oriented. No acute distress. Responses are adequate. Skin is warm and dry. Dry mucous membranes. Neck is supple. No JVD Lungs clear bilaterally. No respiratory distress Heart S1, S2, regular Abdomen distended, tender to touch diffusely, soft, no guarding, bowel sounds are present. Extremities trace edema no cyanosis no calf tenderness bilaterally Neuro exam is nonfocal. Normal speech. Eyes PERRLA, extraocular muscles intact. Urinary Catheter Management^: Coude Latex: Cath Placed During This Visit: yes Reason for Continuing Indwelling Catheter: Accurate Measurement of Urinary Output in Critically Ill Patients Urinary Catheter Date of Insertion: 02/01/20 Urinary Catheter Time of Insertion: 22:05 Data : 02/02/20 03:10 02/02/20 14:00 Micro: Microbiology 02/01/20 22:23 C.difficile Toxin B Gene (PCR) - Final Stool A&P Additional A&P Information Severe sepsis and septic shock secondary to C. difficile colitis. Patient was recently on antibiotics for recurrent UTI. Home antibiotics are discontinued. Clinically improved. White blood cells with improvement. We will continue IV fluids, IV metronidazole and p.o. vancomycin. I appreciate Dr. Ge's input. Acute kidney injury. Probably multifactorial. I suspect prerenal cause and ATN. Home antibiotics, lisinopril, naproxen are discontinued. Appreciate Dr. Pagan's input. I discussed with him. Medications and IV fluids are adjusted. We will continue monitoring his renal function and electrolytes Hyponatremia. Mild. Probably secondary to the above. Will monitor. Acute metabolic acidosis secondary to acute kidney injury. Management with IV fluids. Management per Dr. Fatima. History of peptic ulcer disease. We will continue home PPI. Liver metastatic lesions. Will discuss with the patient after initial stabilization. Also will try to speak with the family when they arrive to let them know about this finding. DVT prophylaxis. Heparin. Elevated troponin. I suspect this is demand ischemia. Currently no chest pain. We will continue monitoring him on telemetry. The plan of care was discussed with the patient. He verbalized understanding and agreement. The plan of care was also discussed during multidisciplinary rounds. Attestations Medical Necessity Statement*: Critical care time spent on this encounter 40 minutes. Coding Level of Care Code Acute Corporate Quality Assurance Manager for Griffin Munson
[2020-02-02 18:48] LABS: Glucose Point of Care 128 mg/dL (70-110)
[2020-02-02 18:48] LABS: Glucose Point of Care 65 mg/dL (70-110)
[2020-02-02 18:48] LABS: Glucose Point of Care 135 mg/dL (70-110)
[2020-02-02 19:01] LABS: Glucose Point of Care 166 mg/dL (70-110)
--- NOTE | 2020-02-02 19:26 | PC.NURSE ---
Shift summary: Pt rested with eyes closed most of the day. He ate 25-75% of each meal, clear liquids, carbohydrate consistency. His blood sugars improved with the fluid change: D5/0.45NS with 20mEq KCL at 100ml/hr. Pt has been incontinent of 3 liquid large BMs. HIs skin on his bottom is intact, no excoriation noted. Mohsen hose off, he was incontinent on them.. Dr Whitaker aware they are off. Report given to FAVIAN Cifuentes.
[2020-02-02 22:17] LABS: Glucose Point of Care 116 mg/dL (70-110)
[2020-02-03] VITALS (18 sets, daily range): BP systolic 89–143; BP diastolic 41–72; PULSE 68–82; RESP 16–26; TEMP 36.6–37.2; O2SAT 95–98
[2020-02-03 04:58] LABS: Basophils # 0.1 10^3/uL (0.0-0.1); Basophils % 0.5 %; Eosinophils # 0.3 10^3/uL (0.0-0.8); Eosinophils % 1.9 %; Hematocrit 30.4 % (42.0-52.0); Hemoglobin 9.7 g/dL (11.7-16.6); Lymphocytes # 1.2 10^3/uL (0.8-4.8); Lymphocytes % 7.2 %; Mean Corpuscular HGB Conc 31.9 g/dL (30.0-36.0); Mean Corpuscular Hemoglobin 28.8 pg (28.0-34.0); Mean Corpuscular Volume 90.2 fL (80-94); Mean Platelet Volume 9.1 fL (7.4-10.4); Monocytes # 0.7 10^3/uL (0.2-0.9); Neutrophils % 85.5 %; Nucleated Red Blood Cells % 0 %; Platelet Count 246 10^3/cmm (130-400); Red Blood Count 3.37 10^6/uL (4.1-5.3); Red Cell Distribution Width 15.9 % (12.1-15.1)
[2020-02-03 05:24] LABS: Albumin Level 2.3 g/dL (3.5-5.2); Anion Gap 15.6 (5-19); Blood Urea Nitrogen 48 mg/dL (8-23); Calcium 6.9 mg/dL (8.5-10.5); Carbon Dioxide 16 mmol/L (22-29); Chloride 107 mmol/L (98-107); Glucose 136 mg/dL (65-115); Potassium 3.6 mmol/L (3.5-5.1); Sodium 135 mmol/L (136-145)
[2020-02-03 05:28] LABS: Magnesium 1.7 mg/dL (1.7-2.3)
[2020-02-03] MEDS: metroNIDAZOLE IV 500 MG/100 ML PREMIX 100 MG IV ×3 (05:54→18:09)
--- NOTE | 2020-02-03 06:36 | PC.NURSE ---
Pt A&O x4, Chip. Very pleasant and cooperative. States he feels better. LS dim in bases and satting well on RA. Sadler patent and draining clear, yellow urine with mucus threads. Has been inc of liquid brown stool x2. Inc care done and barrier applied to bottom. Pt prefers to lie on back but was enc to turn side to side more. Art clear liquids. SR with occ PVCs. Remains in prec for C diff. CUrrently resting in bed with eyes closed and in no acute distress. Cont to monitor.
--- NOTE | 2020-02-03 07:35 | PC.NURSE ---
Mohsen parker reain off at this time, due to pt's fecal incontinence.
--- NOTE | 2020-02-03 08:15 | P.PN_ITS ---
Subjective Subjective: Interval history: The patient says he is feeling well. He does have some occasional abdominal cramping and continues to have quite a bit of loose stool. Vitals/I&O/Wt Last Vital Signs Temp 98.6 F 02/03/20 04:00 Pulse 71 02/03/20 06:00 Resp 22 H 02/03/20 06:00 BP 95/49 02/03/20 06:00 Pulse Ox 96 02/03/20 06:00 02/02/20 02/03/20 02/03/20 22:59 06:59 14:59 Intake Total 530 / 2165.000 1085.000 / 2165.000 Output Total 650 / 1600 500 / 1600 Balance -120 / 565.000 585.000 / 565.000 Weight last 48 hrs Weight 149 lb Weight 147 lb 9.6 oz Weight 143 lb 14.4 oz Weight 142 lb Physical Exam Narrative: EXAM NARRATIVE: Abdomen remains softly distended with diffuse scattered mild tenderness. Urinary Catheter Management^: Coude Latex: Cath Placed During This Visit: yes Reason for Continuing Indwelling Catheter: Accurate Measurement of Urinary Output in Critically Ill Patients Urinary Catheter Date of Insertion: 02/01/20 Urinary Catheter Time of Insertion: 22:05 Data : 02/03/20 04:40 02/03/20 04:40 Micro: Microbiology 02/01/20 22:23 C.difficile Toxin B Gene (PCR) - Final Stool A&P Assessment and plan (1) Clostridium difficile colitis: The patient appears to be improving. His white blood cell count is defervescing and his creatinine is decreasing. Continue current management. Status: Acute Attestations Medical Necessity Statement*: See admitting service's notation. Coding Level of Care Code Acute District Traffic Chief for Griffin Munson Diagnoses Clostridium difficile colitis A04.72
[2020-02-03] MEDS: pantoprazole 40 mg SDV IVP ×2 (08:59→21:13)
[2020-02-03] MEDS: heparin 5,000 unit/mL INJ 1 mL 5000 UNIT SUBCUT ×2 (09:00→21:10)
[2020-02-03] MEDS: D5-NS 0.45% + KCL 20 mEq 20 MEQ/1,000 ML BAG 100 MEQ IV (10:01)
--- NOTE | 2020-02-03 11:37 | PM.PN ---
Subjective Subjective: Interval history: Much better today. He still has diarrhea but the volume is significantly less. Minimal edema and no other volume Sx. UO robust. No uremic Sx. Eating and dirnking well. Abdo pain is better. Vitals/I&O/Wt Last Vital Signs Temp 98.6 F 02/03/20 04:00 Pulse 71 02/03/20 06:00 Resp 22 H 02/03/20 06:00 BP 95/49 02/03/20 06:00 Pulse Ox 96 02/03/20 06:00 02/02/20 02/03/20 02/03/20 22:59 06:59 14:59 Intake Total 530 / 1080 1185.000 / 2265.000 1000 / 1000 Output Total 650 / 1100 500 / 1600 Balance -120 / -20 685.000 / 435.660 2348 / 1000 Weight last 48 hrs Weight 67.585 kg Weight 66.95 kg Weight 65.272 kg Weight 64.41 kg Physical Exam Narrative: EXAM NARRATIVE: Constitutional: Awake, conversant, jovial HEENT: Wet mucosa, no jvp, non icteric Lungs: Bilaterally clear without discernible wheeze, rales in all lung zones CVS: S1 S2, no murmurs Abdo: Soft, BS ok Ext 4: Minimal edema, peripheral perfusion with no cyanosis Neurological: Grossly non-focal Urinary Catheter Management^: Coude Latex: Cath Placed During This Visit: yes Reason for Continuing Indwelling Catheter: Accurate Measurement of Urinary Output in Critically Ill Patients Urinary Catheter Date of Insertion: 02/01/20 Urinary Catheter Time of Insertion: 22:05 Data : 02/03/20 04:40 02/03/20 04:40 A&P Additional A&P Information 1. BECKI - Likely ATN, now in recovery, with improving creatinine and robust UO - no indication for dialysis - avoid the usuals 2. CDiff Colitis improving on PO Vanco 3. Lytes with acidosis - change ivf to LR at 100ml/hr - watch glucose but oral intake is better now Ran Sánchez MD Nephrology [phone] Patient seen and examined via telemedicine, with the assistance of the bedside RN Attestations Medical Necessity Statement*: eval for BECKI Coding Level of Care Code Acute Independent Sales Representative for [employer]
[2020-02-03] MEDS: lactated ringers 1,000 ML 100 ML IV (12:12)
[2020-02-03 12:16] LABS: Glucose Point of Care 161 mg/dL (70-110)
--- NOTE | 2020-02-03 15:02 | PM.PN ---
Subjective Subjective: Interval history: patient is feeling better today. Denies any active complaints. Diarrhea is improving. Denies nausea or vomiting. Denies abdominal pain. Denies fever or chills. No chest pain, shortness of breath, cough, palpitations. Medications: Reviewed: Yes Medication Review Details: Generic Name Dose Route Start Last Admin Trade Name Freq PRN Reason Stop Dose Admin Dextrose 25 ml 02/01/20 20:01 02/02/20 05:20 D50w IVP 25 ml ONCE PRN Administration hypoglycemia prot ocol Protocol Dextrose 50 ml 02/01/20 20:01 02/01/20 21:28 D50w IVP 50 ml PRN PRN Administration hypoglycemia prot ocol Protocol Heparin Sodium (Be ef Lung) 5,000 unit 02/01/20 20:00 02/03/20 09:00 Heparin SUBCUT 5,000 unit Q12H MALDONADO Administration Metronidazole 500 mg in 100 mls @ 100 mls/hr 02/02/20 00:00 02/03/20 12:12 Flagyl Iv IV 100 mls/hr Q6H MALDONADO Administration Protocol Dextrose 500 mls @ 100 mls /hr 02/01/20 20:01 02/02/20 06:57 D5w IV Infused ONCE PRN Infusion Adult Acute Hypog lycemia Prot Protocol Lactated Ringer's 1,000 mls @ 100 m ls/hr 02/03/20 11:45 02/03/20 12:12 Lactated Ringers IV 100 mls/hr .Q10H MALDONADO Administration Insulin Aspart 0 unit 02/02/20 18:00 02/03/20 12:20 Novolog SUBCUT 2 unit WM&BEDTIME MALDONADO Administration Protocol Pantoprazole Sodiu m 40 mg 02/02/20 08:00 02/03/20 08:59 Protonix IVP 40 mg Q12H MALDONADO Administration Vancomycin HCl 250 mg 02/01/20 21:00 02/03/20 12:23 Vancocin PO 250 mg QID MALDONADO Administration Vitals/I&O/Wt Last Vital Signs Temp 98.6 F 02/03/20 04:00 Pulse 71 02/03/20 06:00 Resp 22 H 02/03/20 06:00 BP 95/49 02/03/20 06:00 Pulse Ox 96 02/03/20 06:00 02/03/20 02/03/20 02/03/20 06:59 14:59 22:59 Intake Total 1185.000 / 2265.000 1000 / 1000 Output Total 500 / 1600 Balance 685.000 / 119.535 5857 / 1000 Weight last 48 hrs Weight 67.585 kg Weight 66.95 kg Weight 65.272 kg Weight 64.41 kg Physical Exam Narrative: EXAM NARRATIVE: The patient is awake alert and oriented. No acute distress. Responses are adequate. Skin is warm and dry. Dry mucous membranes. Neck is supple. No JVD Lungs clear bilaterally. No respiratory distress Heart S1, S2, regular Abdomen distended, tender to touch diffusely, soft, no guarding, bowel sounds are present. Extremities trace edema no cyanosis no calf tenderness bilaterally Neuro exam is nonfocal. Normal speech. Eyes PERRLA, extraocular muscles intact. Urinary Catheter Management^: Coude Latex: Cath Placed During This Visit: yes Reason for Continuing Indwelling Catheter: Accurate Measurement of Urinary Output in Critically Ill Patients Urinary Catheter Date of Insertion: 02/01/20 Urinary Catheter Time of Insertion: 22:05 Data : 02/03/20 04:40 02/03/20 04:40 A&P Assessment and plan (1) C. difficile colitis: Status: Acute (2) Acute kidney injury: Status: Acute Additional A&P Information Severe sepsis and septic shock secondary to C. difficile colitis. resolved. C. difficile colitis. Improving with current treatments. Diarrhea is improving. Continuing vancomycin by mouth and IV metronidazole. Appreciate Dr. Ge's input. Acute kidney injury. Probably multifactorial. I suspect prerenal cause and ATN. Home antibiotics, lisinopril, naproxen are discontinued. appreciate nephrology team input. They're managing IV fluids. Kidney function is improving. Hyponatremia. Mild. Probably secondary to the above. Will monitor. Acute metabolic acidosis secondary to acute kidney injury. Management with IV fluids. Management per Dr. Fatima. History of peptic ulcer disease. We will continue home PPI. Liver metastatic lesions. Will discuss with the patient after initial stabilization. Also will try to speak with the family when they arrive to let them know about this finding. DVT prophylaxis. Heparin. Elevated troponin. I suspect this is demand ischemia. Currently no chest pain. We will continue monitoring him on telemetry. The plan of care was discussed with the patient. He verbalized understanding and agreement. The plan of care was also discussed during multidisciplinary rounds[facility] the plan of care requires that he remains hospitalized at this time. Coding Level of Care Code Acute Console Operator for Griffin Munson Diagnoses C. difficile colitis A04.72 Acute kidney injury N17.9
--- NOTE | 2020-02-03 16:45 | PC.NURSE ---
Report faxed to [facility].
--- NOTE | 2020-02-03 17:59 | PC.NURSE ---
Report given to GLENROY Lira. All questions answered. Pt to transfer after he gets done eating.
--- NOTE | 2020-02-03 18:38 | PC.NURSE ---
Pt transferred to room 278-1 via W/C.. Belongings with pt.
[2020-02-03 21:28] LABS: Glucose Point of Care 146 mg/dL (70-110)
[2020-02-04] VITALS (8 sets, daily range): BP systolic 95–135; BP diastolic 51–76; PULSE 53–77; RESP 18; TEMP 36.3–37.1; O2SAT 93–97
[2020-02-04] MEDS: lactated ringers 1,000 ML 100 ML IV ×2 (00:49→17:48)
[2020-02-04] MEDS: metroNIDAZOLE IV 500 MG/100 ML PREMIX 100 MG IV ×4 (00:50→17:45)
[2020-02-04 06:01] LABS: Basophils # 0.1 10^3/uL (0.0-0.1); Basophils % 0.6 %; Eosinophils # 0.3 10^3/uL (0.0-0.8); Eosinophils % 2.8 %; Hematocrit 30.1 % (42.0-52.0); Hemoglobin 9.7 g/dL (11.7-16.6); Lymphocytes # 1.4 10^3/uL (0.8-4.8); Lymphocytes % 12.9 %; Mean Corpuscular HGB Conc 32.2 g/dL (30.0-36.0); Mean Corpuscular Volume 89.9 fL (80-94); Monocytes # 0.7 10^3/uL (0.2-0.9); Monocytes % 6.1 %; Neutrophils # 8.26 10^3/uL (1.8-7.7); Neutrophils % 76.9 %; Nucleated Red Blood Cells % 0 %; Platelet Count 236 10^3/cmm (130-400); Red Blood Count 3.35 10^6/uL (4.1-5.3); White Blood Count 10.8 10^3/uL (4.0-10.0)
[2020-02-04 06:24] LABS: Albumin Level 2.1 g/dL (3.5-5.2); Anion Gap 13.4 (5-19); Blood Urea Nitrogen 29 mg/dL (8-23); Carbon Dioxide 17 mmol/L (22-29); Chloride 113 mmol/L (98-107); Glucose 97 mg/dL (65-115); Phosphorus 2.6 mg/dL (2.5-4.5); Potassium 3.4 mmol/L (3.5-5.1); Sodium 140 mmol/L (136-145)
[2020-02-04 06:31] LABS: Magnesium 1.7 mg/dL (1.7-2.3)
--- NOTE | 2020-02-04 06:48 | PM.PN ---
Subjective Subjective: Interval history: The patient is now on the regular floor. He thinks his loose stool has started to slow down a little bit. He is hungry and wants to eat something besides Jell-O. Vitals/I&O/Wt Last Vital Signs Temp 97.9 F 02/04/20 06:00 Pulse 63 02/04/20 06:00 Resp 18 02/04/20 06:00 BP 110/64 02/04/20 06:00 Pulse Ox 97 02/04/20 06:00 02/03/20 02/03/20 02/04/20 14:59 22:59 06:59 Intake Total 1900 / 3500 1500 / 3500 100 / 3500 Output Total 1800 / 3000 1200 / 3000 Balance 1900 / 500 -300 / 500 -1100 / 500 Weight last 48 hrs Weight 143 lb 12.8 oz Weight 143 lb 8 oz Weight 149 lb Physical Exam Narrative: EXAM NARRATIVE: The abdominal exam has not changed much. He still softly distended with some mild tenderness across the lower abdomen. Urinary Catheter Management^: Coude Latex: Cath Placed During This Visit: yes Reason for Continuing Indwelling Catheter: Accurate Measurement of Urinary Output in Critically Ill Patients Urinary Catheter Date of Insertion: 02/01/20 Urinary Catheter Time of Insertion: 22:05 Data : 02/04/20 05:30 02/04/20 05:30 A&P Assessment and plan (1) Clostridium difficile colitis: White blood cell count continues to improve and is nearly normal. The patient stools may be starting to slow down a little bit. I will allow him a low residue diet at his request. Status: Acute Attestations Medical Necessity Statement*: See admitting service's notation. Coding Level of Care Code Acute Field Pipe Lines Supervisor for Griffin Munson Diagnoses Clostridium difficile colitis A04.72
[2020-02-04 07:39] LABS: Glucose Point of Care 91 mg/dL (70-110)
[2020-02-04] MEDS: tamsulosin 0.4 mg Capsule PO (08:00)
[2020-02-04] MEDS: heparin 5,000 unit/mL INJ 1 mL 5000 UNIT SUBCUT ×2 (09:16→20:56)
[2020-02-04 09:30] LABS: Folate Level 8.6 ng/mL (4.5-32.2)
[2020-02-04] MEDS: pantoprazole 40 mg SDV IVP ×2 (09:33→22:45)
--- NOTE | 2020-02-04 09:53 | P.PN_ITS ---
Subjective Subjective: Interval history: Much better today. He still has diarrhea but the volume is significantly less. Minimal edema and no other volume Sx. UO robust. No uremic Sx. Eating well. Abdo pain is better. Sadler remains in place Vitals/I&O/Wt Last Vital Signs Temp 98.7 F 02/04/20 08:00 Pulse 53 L 02/04/20 08:00 Resp 18 02/04/20 08:00 BP 118/65 02/04/20 08:00 Pulse Ox 97 02/04/20 08:00 02/03/20 02/04/20 02/04/20 22:59 06:59 14:59 Intake Total 1500 / 3400 100 / 3500 Output Total 1800 / 1800 1200 / 3000 Balance -300 / 1600 -1100 / 500 Weight last 48 hrs Weight 65.227 kg Weight 65.091 kg Weight 67.585 kg Physical Exam Narrative: EXAM NARRATIVE: Constitutional: Awake, conversant, jovial HEENT: Wet mucosa, no jvp, non icteric Lungs: Bilaterally clear without discernible wheeze, rales in all lung zones CVS: S1 S2, no murmurs Abdo: Soft, BS ok Ext 4: Minimal edema, peripheral perfusion with no cyanosis Neurological: Grossly non-focal Urinary Catheter Management^: Coude Latex: Cath Placed During This Visit: yes Reason for Continuing Indwelling Catheter: Accurate Measurement of Urinary Outp ut in Critically Ill Patients Urinary Catheter Date of Insertion: 02/01/20 Urinary Catheter Time of Insertion: 22:05 Data : 02/04/20 05:30 02/04/20 05:30 A&P Additional A&P Information 1. BECKI - Likely ATN, now in recovery, with improving creatinine and robust UO - no indication for dialysis - avoid the usuals - Leave Sadler until day of DC; he straight caths at home 2. CDiff Colitis improving on PO Vanco 3. Lytes with acidosis - change ivf to LR at 100ml/hr - watch glucose but oral intake is better now - 40mEq KCl replacement today 4. Liver masses; for CT chest and likely biopsy down the road - acute renal issues resolving, will watch peripherally at this time - thank you for my involvement in his care Ran Sánchez MD Nephrology [phone] Patient seen and examined via telemedicine, with the assistance of the bedside RN Attestations Medical Necessity Statement*: Eval for BECKI Coding Level of Care Code Acute Cigar Packer And Grader for Griffin Munson
[2020-02-04 10:14] LABS: Vitamin B12 > 2000 pg/mL (232-1245)
[2020-02-04 10:54] LABS: Glucose Point of Care 181 mg/dL (70-110)
--- NOTE | 2020-02-04 11:31 | PC.SOCIAL ---
IMM Update Pg. 2 of IMM updated and reviewed with patient's via phone who verbalized understanding.
--- NOTE | 2020-02-04 12:03 | P.PN_ITS ---
Subjective Subjective: Interval history: The patient reports feeling better. Diarrhea is improving. No fevers or chills. Denies abdominal pain. No nausea or vomiting. No chest pain, shortness of breath, cough, palpitations. Medications: Reviewed: Yes Medication Review Details: Generic Name Dose Route Start Last Admin Trade Name Freq PRN Reason Stop Dose Admin Dextrose 25 ml 02/01/20 20:01 02/02/20 05:20 D50w IVP 25 ml ONCE PRN Administration hypoglycemia prot ocol Protocol Dextrose 50 ml 02/01/20 20:01 02/01/20 21:28 D50w IVP 50 ml PRN PRN Administration hypoglycemia prot ocol Protocol Heparin Sodium (Be ef Lung) 5,000 unit 02/01/20 20:00 02/03/20 09:00 Heparin SUBCUT 5,000 unit Q12H MALDONADO Administration Metronidazole 500 mg in 100 mls @ 100 mls/hr 02/02/20 00:00 02/03/20 12:12 Flagyl Iv IV 100 mls/hr Q6H MALDONADO Administration Protocol Dextrose 500 mls @ 100 mls /hr 02/01/20 20:01 02/02/20 06:57 D5w IV Infused ONCE PRN Infusion Adult Acute Hypog lycemia Prot Protocol Lactated Ringer's 1,000 mls @ 100 m ls/hr 02/03/20 11:45 02/03/20 12:12 Lactated Ringers IV 100 mls/hr .Q10H MALDONADO Administration Insulin Aspart 0 unit 02/02/20 18:00 02/03/20 12:20 Novolog SUBCUT 2 unit WM&BEDTIME MALDONADO Administration Protocol Pantoprazole Sodiu m 40 mg 02/02/20 08:00 02/03/20 08:59 Protonix IVP 40 mg Q12H MALDONADO Administration Vancomycin HCl 250 mg 02/01/20 21:00 02/03/20 12:23 Vancocin PO 250 mg QID MALDONADO Administration Vitals/I&O/Wt Last Vital Signs Temp 98.5 F 02/04/20 11:26 Pulse 74 02/04/20 11:26 Resp 18 02/04/20 11:26 BP 122/68 02/04/20 11:26 Pulse Ox 97 02/04/20 11:26 02/03/20 02/04/20 02/04/20 22:59 06:59 14:59 Intake Total 1500 / 3400 100 / 3500 Output Total 1800 / 1800 1200 / 3000 Balance -300 / 1600 -1100 / 500 Weight last 48 hrs Weight 65.227 kg Weight 65.091 kg Weight 67.585 kg Physical Exam Narrative: EXAM NARRATIVE: The patient is awake alert and oriented. No acute distress. Responses are adequate. Skin is warm and dry. Dry mucous membranes. Neck is supple. No JVD Lungs clear bilaterally. No respiratory distress Heart S1, S2, regular Abdomen distended, tender to touch diffusely, soft, no guarding, bowel sounds are present. Extremities trace edema no cyanosis no calf tenderness bilaterally Neuro exam is nonfocal. Normal speech. Eyes PERRLA, extraocular muscles intact. Urinary Catheter Management^: Coude Latex: Cath Placed During This Visit: yes Reason for Continuing Indwelling Catheter: Accurate Measurement of Urinary Output in Critically Ill Patients Urinary Catheter Date of Insertion: 02/01/20 Urinary Catheter Time of Insertion: 22:05 Data : 02/04/20 05:30 02/04/20 05:30 A&P Assessment and plan (1) C. difficile colitis: Status: Acute (2) Acute kidney injury: Status: Acute Additional A&P Information Severe sepsis and septic shock secondary to C. difficile colitis. resolved. C. difficile colitis. Improving with current treatments. Diarrhea is improving . Continuing vancomycin by mouth and IV metronidazole. Appreciate Dr. Ge's input. Acute kidney injury. Probably multifactorial. I suspect prerenal cause and ATN. Home antibiotics, lisinopril, naproxen are discontinued. appreciate nephrology team input. They're managing IV fluids. Kidney function is improving. Hyponatremia. Mild. Probably secondary to the above. Will monitor. Acute metabolic acidosis secondary to acute kidney injury. Management with IV fluids. Management per Dr. Morel History of peptic ulcer disease. We will continue home PPI. Liver and metastatic lesions. Cussed with the patient today. He was unaware. Gave him a copy of the report. Answered to his questions. I will also speak with his family when they arrive. Will need additional testing and referral to see an oncologist after stabilization and discharge. Anemia with iron and folic acid deficiency. Will start replacement. Will monitor. DVT prophylaxis. Heparin. Elevated troponin. I suspect this is demand ischemia. Currently no chest pain. We will resume home medications. Will order small dose of aspirin. The plan of care was discussed with the patient. He verbalized understanding a nd agreement. The plan of care was also discussed during multidisciplinary rounds. Attestations Medical Necessity Statement*: The plan of care requires that he remains hospitalized. Coding Level of Care Code Acute Licensed Embalmer for Griffin Munson Diagnoses C. difficile colitis A04.72 Acute kidney injury N17.9
[2020-02-04] MEDS: iron sucrose 200 MG in sodium chloride 0.9% (100 ml) 100 ML 220 MG IV (13:08)
[2020-02-04] MEDS: folic acid 1 mg Tablet PO (13:11)
[2020-02-04] MEDS: metoprolol tartrate 25 mg Tablet 12.5 MG PO (17:43)
[2020-02-04 18:38] LABS: Glucose Point of Care 187 mg/dL (70-110)
[2020-02-04 22:12] LABS: Glucose Point of Care 126 mg/dL (70-110)
[2020-02-05] MEDS: metroNIDAZOLE IV 500 MG/100 ML PREMIX 100 MG IV ×4 (00:54→16:26)
[2020-02-05 01:00] VITALS: BP 123/67; PULSE 64; RESP 17; TEMP 37.1; O2SAT 96
[2020-02-05] MEDS: lactated ringers 1,000 ML 100 ML IV ×2 (04:20→14:18)
[2020-02-05 05:00] VITALS: BP 135/60; PULSE 71; RESP 16; TEMP 36.4; O2SAT 96
[2020-02-05 06:05] LABS: Basophils # 0.1 10^3/uL (0.0-0.1); Basophils % 0.6 %; Eosinophils # 0.4 10^3/uL (0.0-0.8); Eosinophils % 3.8 %; Hematocrit 30.5 % (42.0-52.0); Hemoglobin 9.5 g/dL (11.7-16.6); Lymphocytes # 1.4 10^3/uL (0.8-4.8); Lymphocytes % 14.4 %; Mean Corpuscular HGB Conc 31.1 g/dL (30.0-36.0); Mean Corpuscular Hemoglobin 28.8 pg (28.0-34.0); Mean Corpuscular Volume 92.4 fL (80-94); Mean Platelet Volume 9.6 fL (7.4-10.4); Monocytes # 0.6 10^3/uL (0.2-0.9); Monocytes % 6.4 %; Neutrophils # 7.24 10^3/uL (1.8-7.7); Neutrophils % 73.7 %; Nucleated Red Blood Cells % 0 %; Platelet Count 239 10^3/cmm (130-400); Red Cell Distribution Width 16.4 % (12.1-15.1); White Blood Count 9.8 10^3/uL (4.0-10.0)
[2020-02-05 06:22] LABS: Glucose Point of Care 113 mg/dL (70-110)
[2020-02-05 06:30] LABS: Anion Gap 14.6 (5-19); Blood Urea Nitrogen 20 mg/dL (8-23); Calcium 7.3 mg/dL (8.5-10.5); Carbon Dioxide 17 mmol/L (22-29); Chloride 112 mmol/L (98-107); Glucose 118 mg/dL (65-115); Potassium 3.6 mmol/L (3.5-5.1); Sodium 140 mmol/L (136-145)
[2020-02-05 06:39] LABS: Magnesium 1.6 mg/dL (1.7-2.3)
[2020-02-05 08:23] VITALS: BP 115/61; PULSE 73; RESP 18; TEMP 36.9; O2SAT 97
--- NOTE | 2020-02-05 08:39 | PM.PN ---
Subjective Subjective: Interval history: The patient says he continues to do well. He had 3?4 bowel movements yesterday and says they are still quite loose. He thought they were slowing down but he says he is not sure anymore. He is eating a soft diet. Vitals/I&O/Wt Last Vital Signs Temp 98.4 F 02/05/20 08:23 Pulse 73 02/05/20 08:23 Resp 18 02/05/20 08:23 BP 115/61 02/05/20 08:23 Pulse Ox 97 02/05/20 08:23 02/04/20 02/05/20 02/05/20 22:59 06:59 14:59 Intake Total 700 / 3260 1100 / 3260 Output Total 700 / 700 Balance 0 / 2560 1100 / 2560 Weight last 48 hrs Weight 150 lb 9 oz Weight 143 lb 12.8 oz Weight 143 lb 8 oz Physical Exam Narrative: EXAM NARRATIVE: Minimal scattered tenderness. Urinary Catheter Management^: Coude Latex: Cath Placed During This Visit: yes Reason for Continuing Indwelling Catheter: Acute Urinary Retention or Obstruction Urinary Catheter Date of Insertion: 02/01/20 Urinary Catheter Time of Insertion: 22:05 Data : 02/05/20 04:51 02/05/20 04:51 A&P Assessment and plan (1) Clostridium difficile colitis: Continued clinical improvement, although the patient still has some loose stool. He is not having any subjective abdominal discomfort. His white blood cell count has normalized. I will be available if needed but probably will not continue to see the patient daily. Please call if I can be of further help. Status: Acute Attestations Medical Necessity Statement*: See admitting service's notation. Coding Level of Care Code Acute Assembler Final for Griffin Munson Diagnoses Clostridium difficile colitis A04.72
[2020-02-05] MEDS: heparin 5,000 unit/mL INJ 1 mL 5000 UNIT SUBCUT ×2 (08:42→21:01)
[2020-02-05] MEDS: aspirin 81 mg EC Tablet PO (08:43)
[2020-02-05] MEDS: atorvastatin 40 mg Tablet 20 MG PO (08:43)
[2020-02-05] MEDS: metoprolol tartrate 25 mg Tablet 12.5 MG PO ×2 (08:43→16:20)
[2020-02-05] MEDS: folic acid 1 mg Tablet PO (08:43)
[2020-02-05] MEDS: tamsulosin 0.4 mg Capsule PO (08:46)
[2020-02-05] MEDS: pantoprazole 40 mg SDV IVP (09:30)
[2020-02-05] MEDS: magnesium sulfate premix 2 GM/50 ML PIGGYBACK IV (10:12)
[2020-02-05 10:58] LABS: Glucose Point of Care 171 mg/dL (70-110)
[2020-02-05 11:54] VITALS: BP 109/58; PULSE 70; RESP 18; TEMP 36.7; O2SAT 97
[2020-02-05] MEDS: iron sucrose 200 MG in sodium chloride 0.9% (100 ml) 100 ML 220 MG IV (13:58)
--- NOTE | 2020-02-05 14:07 | PM.PN ---
Subjective Subjective: Interval history: Patient feels better. Denies abdominal pain. Diarrhea is improving. No fevers or chills. No nausea or vomiting. No shortness of breath or cough. No chest pain. Vitals/I&O/Wt Last Vital Signs Temp 98.0 F 02/05/20 11:54 Pulse 70 02/05/20 11:54 Resp 18 02/05/20 11:54 BP 109/58 02/05/20 11:54 Pulse Ox 97 02/05/20 11:54 02/04/20 02/05/20 02/05/20 22:59 06:59 14:59 Intake Total 700 / 2270 1100 / 3370 340 / 340 Output Total 700 / 700 400 / 400 Balance 0 / 1570 1100 / 2670 -60 / -60 Weight last 48 hrs Weight 68.294 kg Weight 65.227 kg Weight 65.091 kg Physical Exam Narrative: EXAM NARRATIVE: The patient is awake alert and oriented. No acute distress. Responses are adequate. Skin is warm and dry. Moist mucous membranes. Neck is supple. No JVD Lungs clear bilaterally. No respiratory distress Heart S1, S2, regular Abdomen distended, tender to touch diffusely, soft, no guarding, bowel sounds are present. Extremities trace edema no cyanosis no calf tenderness bilaterally Neuro exam is nonfocal. Normal speech. Eyes PERRLA, extraocular muscles intact. Urinary Catheter Management^: Coude Latex: Cath Placed During This Visit: yes Reason for Continuing Indwelling Catheter: Acute Urinary Retention or Obstruction Urinary Catheter Date of Insertion: 02/01/20 Urinary Catheter Time of Insertion: 22:05 Data : 02/05/20 04:51 02/05/20 04:51 A&P Assessment and plan (1) C. difficile colitis: Status: Acute (2) Acute kidney injury: Status: Acute Additional A&P Information Severe sepsis and septic shock secondary to C. difficile colitis. resolved. C. difficile colitis. Improving with current treatments. Diarrhea is improving. Continuing vancomycin by mouth and IV metronidazole. I will stop metronidazole tomorrow and continue vancomycin for total of 14 days. Will need to avoid any antibiotics if possible. Appreciate Dr. Ge's input. Acute kidney injury. Probably multifactorial. I suspect prerenal cause and ATN. Home antibiotics, lisinopril, naproxen are discontinued. appreciate nephrology team input. They're managing IV fluids. Kidney function is improving. Hyponatremia. Mild. Probably secondary to the above. Will monitor. Acute metabolic acidosis secondary to acute kidney injury. Management with IV fluids. Management per Dr. Morel History of peptic ulcer disease. We will continue home PPI. Liver and metastatic lesions. Cussed with the patient today. He was unaware. Gave him a copy of the report. Answered to his questions. Yesterday I met with him and his at the bedside. We went over read findings on CT again. I answered to all their questions to the best of my knowledge. They verbalized understanding and satisfaction with the conversation. They promised to see primary care physician and an oncologist in the very near future for additional testing. I will provide a referral. Anemia with iron and folic acid deficiency. Continue replacement. Will monitor. DVT prophylaxis. Heparin. Elevated troponin. I suspect this is demand ischemia. Currently no chest pain. We will resume home medications. Will order small dose of aspirin. The plan of care was discussed with the patient. He verbalized understanding and agreement. The plan of care was also discussed during multidisciplinary rounds. 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 difficile colitis A04.72 Acute kidney injury N17.9
[2020-02-05 15:32] VITALS: BP 118/60; PULSE 71; RESP 18; TEMP 36.9; O2SAT 98
[2020-02-05 16:26] LABS: Glucose Point of Care 180 mg/dL (70-110)
[2020-02-05 19:13] LABS: Glucose Point of Care 141 mg/dL (70-110)
[2020-02-05 19:42] VITALS: BP 131/63; PULSE 72; RESP 20; TEMP 36.7; O2SAT 98
[2020-02-05 20:24] LABS: Glucose Point of Care 117 mg/dL (70-110)
[2020-02-05 20:54] LABS: Glucose Point of Care 182 mg/dL (70-110)
[2020-02-06 00:37] VITALS: BP 131/63; PULSE 98; RESP 20; TEMP 37.1; O2SAT 96
[2020-02-06] MEDS: metroNIDAZOLE IV 500 MG/100 ML PREMIX 100 MG IV (01:02)
[2020-02-06 03:52] VITALS: BP 121/65; PULSE 67; RESP 16; TEMP 36.9; O2SAT 97
[2020-02-06 04:45] LABS: Magnesium 1.9 mg/dL (1.7-2.3)
[2020-02-06 05:00] LABS: Albumin Level 2.5 g/dL (3.5-5.2); Anion Gap 14.9 (5-19); Blood Urea Nitrogen 15 mg/dL (8-23); Calcium 7.7 mg/dL (8.5-10.5); Carbon Dioxide 18 mmol/L (22-29); Chloride 110 mmol/L (98-107); Glucose 131 mg/dL (65-115); Potassium 3.9 mmol/L (3.5-5.1); Sodium 139 mmol/L (136-145)
[2020-02-06 07:17] LABS: Glucose Point of Care 128 mg/dL (70-110)
[2020-02-06 07:31] VITALS: BP 154/77; PULSE 78; RESP 18; TEMP 36.9; O2SAT 96
[2020-02-06] MEDS: atorvastatin 40 mg Tablet 20 MG PO (09:20)
[2020-02-06] MEDS: tamsulosin 0.4 mg Capsule PO (09:20)
[2020-02-06] MEDS: pantoprazole DR 40 mg Tablet PO (09:20)
[2020-02-06] MEDS: aspirin 81 mg EC Tablet PO (09:21)
[2020-02-06] MEDS: metoprolol tartrate 25 mg Tablet 12.5 MG PO (09:21)
[2020-02-06] MEDS: heparin 5,000 unit/mL INJ 1 mL 5000 UNIT SUBCUT (09:22)
[2020-02-06] MEDS: folic acid 1 mg Tablet PO (09:22)
[2020-02-06] MEDS: metroNIDAZOLE 500 MG Tablet PO (09:22)
--- NOTE | 2020-02-06 10:30 | PC.SOCIAL ---
IMM Update Pg. 2 of IMM updated and reviewed with patient. Copy provided.
[2020-02-06 11:00] LABS: Glucose Point of Care 232 mg/dL (70-110)
[2020-02-06 11:09] VITALS: BP 128/63; PULSE 81; RESP 18; TEMP 36.8; O2SAT 96
--- NOTE | 2020-02-06 12:37 | PM.DCS ---
Discharge Providers Date of Admission: 02/01/20 18:14 Date of Discharge: February 06, 2020 Attending Provider at Admission: Eusebio Whitaker Attending Provider at Discharge: Eusebio Whitaker Primary Care Provider: Sergio Sandoval MD Diagnoses at Discharge Discharge Diagnosis (1) C. difficile colitis: Status: Acute (2) Acute kidney injury: Status: Acute Reason for Visit Reason for Visit: diahrea/dehydration/ low bp Hospital Course Discharge Summary: Aung Lizarraga is a 84 year old male with past medical history of chronic or recurrent urinary tract infection who has been on different antibiotics recently. He presents to emergency room with complaints of diarrhea which started about 10 days ago. Severe sepsis and septic shock secondary to C. difficile colitis. resolved. C. difficile colitis. Improving with current treatments. Diarrhea is almost resolved. Continuing vancomycin by mouth. Stop metronidazole today. Will need to avoid any antibiotics if possible. Appreciate Dr. Ge's input. Acute kidney injury. Probably multifactorial. I suspect prerenal cause and ATN. Home antibiotics, lisinopril, naproxen are discontinued. appreciate nephrology team input. Cleared for discharge home today. Outpatient monitoring of the renal function is necessary. The patient was instructed to speak with his primary care physician in about long-term management and possible referrals. For now he is going home with Sadler catheter. He is asked to speak with his primary urologist Dr. Singleton in 1 week. Hyponatremia. Mild. Probably secondary to the above. Will monitor. Acute metabolic acidosis secondary to acute kidney injury. History of peptic ulcer disease. We will continue home PPI. Liver and lung metastatic lesions. reminded the pt again. Gave him a copy of the report. Answered to his questions again. They verbalized understanding and satisfaction with the conversation. Referral is provided to see dr North. Anemia with iron and folic acid deficiency. Continue replacement. Monitor Elevated troponin. I suspect this is demand ischemia. Currently no chest pain. We will resume home medications. Will order small dose of aspirin. Doing well. No active complaints. Wants to go home. Physical Exam Narrative: EXAM NARRATIVE: The patient is awake alert and oriented. No acute distress. Responses are adequate. Skin is warm and dry. Moist mucous membranes. Neck is supple. No JVD Lungs clear bilaterally. No respiratory distress Heart S1, S2, regular Abdomen distended, tender to touch diffusely, soft, no guarding, bowel sounds are present. Extremities trace edema no cyanosis no calf tenderness bilaterally Neuro exam is nonfocal. Normal speech. Eyes PERRLA, extraocular muscles intact. Urinary Catheter Management^: Coude Latex: Cath Placed During This Visit: yes Reason for Continuing Indwelling Catheter: Acute Urinary Retention or Obstruction Urinary Catheter Date of Insertion: 02/01/20 Urinary Catheter Time of Insertion: 22:05 Discharge Data Data Completed and Pending: Completed Studies During Hospitalization Category Date Time Status CT abdomen pelvis wo con [id number] Urge nt Cat Scan 02/01/20 16:48 Completed XR chest 1V emma ble [id number] Stat Exams 02/01/20 15:28 Completed Labs from last 24 hours 02/06/20 02/06/20 02/06/20 10:56 06:51 04:11 Sodium 139 Potassium 3.9 Chloride 110 H Carbon Dioxide 18 L Anion Gap 14.9 BUN 15 Creatinine 1.6 H GFR Calculation Not Reportable Glucose 131 H POC Glucose 232 128 Calcium 7.7 L Phosphorus 2.0 L Magnesium Albumin 2.5 L 02/06/20 02/05/20 02/05/20 04:11 20:41 16:19 Sodium Potassium Chloride Carbon Dioxide Anion Gap BUN Creatinine GFR Calculation Glucose POC Glucose 182 180 Calcium Phosphorus Magnesium 1.9 Albumin 02/03/20 02/03/20 17:45 07:50 Sodium Potassium Chloride Carbon Dioxide Anion Gap BUN Creatinine GFR Calculation Glucose POC Glucose 117 141 Calcium Phosphorus Magnesium Albumin Vitals: Last Vital Signs Temp 98.3 F 02/06/20 11:09 Pulse 81 02/06/20 11:09 Resp 18 02/06/20 11:09 BP 128/63 02/06/20 11:09 Pulse Ox 96 02/06/20 11:09 Discharge Plan Discharge Patient Disposition: Home Condition: Stable Prescriptions: New aspirin 81 mg Tablet,Delayed Release (Dr/Ec) 81 mg PO DAILY Qty: 30 RF: 0 vancomycin 1,000 mg Recon Soln 250 mg PO QID Qty: 40 RF: 0 folic acid 1 mg Tablet 1 mg PO DAILY Qty: 30 RF: 0 Continued ferrous sulfate [Feosol] 325 mg (65 mg iron) tablet 325 mg PO BID RF: 0 pantoprazole 20 mg tablet,delayed release (DR/EC) 20 mg PO BID RF: 0 metoprolol tartrate 25 mg tablet 12.5 mg PO BID RF: 0 acetaminophen [Tylenol] 325 mg capsule 650 mg PO Q6H PRN (Reason: Analgesia) RF: 0 simvastatin 20 mg tablet 20 mg PO DAILY RF: 0 glipizide 5 mg tablet 5 mg PO DAILY RF: 0 tamsulosin 0.4 mg capsule 0.4 mg PO DAILY Qty: 90 RF: 3 Discontinued sulfamethoxazole-trimethoprim 800-160 mg tablet 0.5 tab PO BID Qty: 30 RF: 2 lisinopril 20 mg Tablet 20 mg PO BID RF: 0 naproxen sodium [Aleve] 220 mg Capsule 220 mg PO Q12H PRN (Reason: Pain) RF: 0 Discharge Orders: Discharge Order (Routine); Ordered 02/06/20 Ordered By: Eusebio Whitaker Other Ambulatory Orders: Complete Blood Count w/Auto (Routine) Timeframe: 1 Week Location: Determined by Patient Ordered By: Eusebio Whitaker Comprehensive Metabolic Panel (Routine) Timeframe: 1 Week Facility: [facility] - Location: Lab - Main Lab Ordered By: Eusebio Whitaker Referrals: Deep North MD [Hospitalist] - 1 week (Liver and lung metastatic lesions) Sergio Sandoval MD [Primary Care Provider] - (Please call Deshawn Hansen and make an appointment for a one week hospital follow up with Dr Sandoval. [phone]) Discharge Diet: Usual diet Discharge Activity: Resume usual activity Patient Instructions: Acute Kidney Injury (DC), Clostridium Difficile Infection (DC) Activity Restrictions/Additional Instructions: Please see your primary care physician as soon as possible. Please see Dr. North for evaluation of suspected cancer. Please ask your primary care physician to monitor your kidney function. Please return to emergency room if you develop any new diarrhea, abdominal pain, back pain, nausea or vomiting, fever or chills, rectal blood, black stools, chest pain, palpitations, shortness of breath, cough, weakness, dizziness, lightheadedness. Do not start any new medications without speaking with your doctors. 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 difficile colitis A04.72 Acute kidney injury N17.9
[2020-02-06 12:49] VITALS: BP 128/63; PULSE 81; RESP 18; TEMP 36.8; O2SAT 96
--- NOTE | 2020-02-10 13:15 | PC.SOCIAL ---
Late Entry for 02/09/20. Call received from Mellissa at Dr Sandoval office to return this nurse's call from 02/08/2020. We discussed that Dr Whitaker and locum provider asked patient to see Dr North for ? Metastatic Cancer to lung and liver not sure of primary. Oncology providers request that a pathology be obtained prior to scheduling appointment at clinic. Porter from [facility] had called on 02/08/2020 to update this nurse that no pathology had been obtained at this time. This nurse asked that Mellissa discuss with Dr Sandoval to obtain an order for liver biopsy. Mellissa did request and returned call to this nurse to update that Dr Sandoval is agreeable. Mellissa will get this set up and notify this nurse of date and time. This nurse will then notify [facility] staff of date so they can schedule clinic visit once results have been obtained. Sent email to Porter to update her. Mellissa from Dr Sandoval office will update patient.
--- NOTE | 2020-02-22 16:51 | PC.SOCIAL ---
Addendum entered by Ladonna Fuchs RN 02/22/20 16:53: All were notified by email response received shortly after by Porter. Original Note: Patient biopsy is scheduled for 02/29/2020 at 9am. Notified Paola Alvarez since Marzena is out and Porter film touch up inspector this information so patient can be scheduled with Oncology once results are obtained.
== END 2020-02-06 13:23 | disposition home or self-care (01) | DRG 871 ==
LOC: ER 18:10 → ICU 18:34 → MEDSURG 02-03 18:29
PROVIDERS: Family Medicine; Internal Medicine; Internal Medicine Nephrology; Admitting Provider Internal Medicine; PCP Family Medicine; Visit Provider Internal Medicine
DX: A41.9 Sepsis, unspecified organism (principal); R65.21 Severe sepsis with septic shock; N17.0 Acute kidney failure with tubular necrosis; E87.1 Hypo-osmolality and hyponatremia; I24.8 Other forms of acute ischemic heart disease; A04.72 Enterocolitis due to Clostridium difficile, not specified as recurrent; E87.2 Acidosis; N13.8 Other obstructive and reflux uropathy; Z87.11 Personal history of peptic ulcer disease; N40.1 Benign prostatic hyperplasia with lower urinary tract symptoms; M17.0 Bilateral primary osteoarthritis of knee
CPT/HCPCS: 12345; 36415; 36416; 51702; 71045; 74176; 80053; 80069; 82310; 82436; 82607; 82728; 82746; 82947; 82962; 83540; 83550; 83605; 83735; 83970; 84133; 84300; 84484; 85025; 87493; 93005; 96372; 96375; 97110; 97116; 97161; 97530; 99283; C9113; J1644; J1756; J1815; J3370; J3475; J3480; J7030; J7799; Q3014; S0030

== ENCOUNTER 2020-02-29 07:30 | Day surgery (SDC) | payer MEDICARE, OTHER, SELFPAY ==
[2020-02-29] VITALS (10 sets, daily range): BP systolic 115–141; BP diastolic 53–76; PULSE 67–80; RESP 18–25; O2SAT 95–100
--- NOTE | 2020-02-29 | US_ITS ---
WS: [id number] ULTRASOUND GUIDED LIVER BIOPSY CLINICAL INFORMATION: EVAL LIVER FOR BIOPSY COMPARISON: Noncontrast CT February 01, 2020 FINDINGS: Ultrasound performed prior to liver biopsy. Liver Size: Normal. Craniocaudal length: 14.5 cm. Echogenicity: Normal. Surface nodularity: None. Mass (size and location): Heterogeneous hypoechoic right hepatic mass with hypoechoic halo measures 5 .5 x 3.3 x 4.6 cm and corresponds to the CT mass The procedure including risks benefits and complications were discussed the patient who agreed to pro ceed. Using sterile technique patient was prepped and draped in usual sterile fashion. A timeout was performed. After 1% lidocaine using ultrasound guidance, the heterogeneous hypoechoic right hepatic l esion was localized. 4-5 18-gauge core samples were obtained using an 18-gauge biopsy device. No imme diate complications. Patient was discharged 2 hours post procedure in stable condition US/US abdomen limited [id number] IMPRESSION: Uncomplicated ultrasound-guided right hepatic mass biopsy. Pathology is pending .
[2020-02-29 08:17] LABS: Glucose Point of Care 125 mg/dL (70-110)
[2020-02-29] MEDS: sodium chloride 0.9% 1,000 ML 30 ML IV (08:19)
[2020-02-29 08:40] LABS: INR 1.04 (0.8-1.2)
--- NOTE | 2020-02-29 08:53 | US_ITS ---
WS: [id number] ULTRASOUND GUIDED LIVER BIOPSY CLINICAL INFORMATION: EVAL LIVER FOR BIOPSY COMPARISON: Noncontrast CT February 01, 2020 FINDINGS: Ultrasound performed prior to liver biopsy. Liver Size: Normal. Craniocaudal length: 14.5 cm. Echogenicity: Normal. Surface nodularity: None. Mass (size and location): Heterogeneous hypoechoic right hepatic mass with hypoechoic halo measures 5 .5 x 3.3 x 4.6 cm and corresponds to the CT mass The procedure including risks benefits and complications were discussed the patient who agreed to pro ceed. Using sterile technique patient was prepped and draped in usual sterile fashion. A timeout was performed. After 1% lidocaine using ultrasound guidance, the heterogeneous hypoechoic right hepatic l esion was localized. 4-5 18-gauge core samples were obtained using an 18-gauge biopsy device. No imme diate complications. Patient was discharged 2 hours post procedure in stable condition US/US biopsy liver [id number] IMPRESSION: Uncomplicated ultrasound-guided right hepatic mass biopsy. Pathology is pending .
[2020-02-29] MEDS: fentaNYL 50 mcg/mL INJ 2mL 25 MCG IVP (09:20)
[2020-02-29] MEDS: midazolam 1 mg/mL INJ 2 mL IVP (09:20)
--- NOTE | 2020-02-29 09:53 | SUR.OPER ---
0925 Ultrasound guided biopsy performed in OPS room 3 per Dian Swift assist. Specimen collected and orders to be put in per radiology. Site covered with 2x2's and tegaderm following procedure. Pt to lay on right side for first hour. May be discharged after 2 hours if no bleeding, change in VS, or increased pain.
--- NOTE | 2020-02-29 11:01 | SUR.PHASEII ---
1100 Pt VSS. Denies pain. Dressing to RUQ biopsy site remains D/I. Pt denies SOB, dizziness, or increasing pain.
== END 2020-02-29 11:40 | disposition home or self-care (01) ==
PROVIDERS: Radiology Neuroradiology; PCP Family Medicine; Visit Provider Family Medicine
DX: C22.7 Other specified carcinomas of liver (principal); I10 Essential (primary) hypertension; Z79.82 Long term (current) use of aspirin; M17.11 Unilateral primary osteoarthritis, right knee; E78.00 Pure hypercholesterolemia, unspecified
CPT/HCPCS: 36415; 36416; 47000; 76705; 76942; 82962; 85610; 88307; 96374; 96375; J2250; J3010; J7030

== ENCOUNTER 2020-03-10 14:56 | Outpatient (CLI) | payer MEDICARE, OTHER, SELFPAY ==
--- NOTE | 2020-03-10 16:13 | ONC FU_ITS ---
Dr. Foss follow up note Patient: Aung Lizarraga Unit #: [id number]: 1935 Dicatated By: Betty Foss M.D.Date of Visit:Mar 10, 2020 Onc Med Follow-up/Prog Note History of Present Illness: Mr. Aung Lizarraga, is a 84-year-old gentleman with Complex medical history including diabetes mellitus type 2, hyperlipidemia, chronic renal disease, palpitations and EKG showed first-degree AV block, RBBB, LAFB. And left knee osteoarthritis, knee replacement is under consideration and history of benign prostate hypertrophy underwent TURP on July 26, 2016 which confirmed benign prostatic hyperplasia, has been followed by urology with history of chronic recurrent cystitis and longstanding bladder outlet obstruction from BPH cystoscopy done in June 2016 showed severe trabeculation., Renal ultrasound done in April 2019 showed bilateral hydronephrosis, cystoscopy done in April 2019 revealed some adenomatous regrowth in the distal prostatic fossa. Patient continue to follow with urology for chronic urinary retention managed with CIC and bacteriuria on antibiotic. With Bactrim DS 1/2 tablet twice a day for UTI suppression. On February 01, 2020, patient went to emergency room with hypotension, generalized weakness and fatigue, diarrhea for 1 week duration and he was diagnosed with C. difficile and sepsis treated with broad-spectrum antibiotic and he also underwent CT scan of abdomen pelvis on February 01, 2020 which showed 2.2 cm hypodense mass in the right liver and multifocal new subcentimeter nodules were also identified in bilateral lung bases. Subsequently patient underwent liver biopsy on February 29, 2020 which confirmed metastatic carcinoma most consistent with a prostatic primary, immunohistochemistry was positive for PIN-4, P504s and CK [id number]. As per pathology note histology and immunohistochemistry stains favor prostatic primary with metastasis to the liver. Patient denies alcohol use but uses smokeless tobacco., Denies any fever or chills, denies any nausea or vomiting denies any diarrhea or constipation, appetite is reasonable, no hemoptysis or hematemesis, no jaundice, no bony pains except left knee pain due to severe arthritis, now knee replacement is under consideration. Denies any hematuria. Medications: Acetaminophen 1 Tablet (of 325 mg) Oral daily, Aspirin 1 Tablet (of 81 mg) Tablet, enteric coated Oral daily, Cyanocobalamin 1 Capsule (of 1000 mcg) Oral daily, Ferrous Sulfate 1 Tablet (of 325 (65 fe) mg) Oral b.i.d., Folic Acid 1 Tablet (of 1 mg) Oral daily, glipiZIDE 1 Tablet (of 5 mg) Oral daily, Lisinopril 1 Tablet (of 20 mg) Oral daily, Metoprolol Tartrate 1 Tablet (of 25 mg) Oral b.i.d., Pantoprazole Sodium 1 Tablet (of 20 mg) Tablet, enteric coated Oral daily, Simvastatin 1 Tablet (of 20 mg) Oral daily, Tamsulosin HCl 1 Capsule (of 0.4 mg) Oral daily, Tamsulosin HCl 1 Tablet (of 0.4 mg) Capsule Oral daily Allergies: No Known Allergies. Review of Systems: Review of Systems is not available for this patient. Vital Signs: Performed on Mar 10, 2020 15:08 Height - 66.00 in Weight - 148.6 lbs (HIGH) BSA - 1.76 sq.m BMI - 23.98 Temperature - 98.4 F Pulse - 87 /min Respiration - 20 /min BP - 161/68 mm(hg) (HIGH) O2 Sat - 100 % Pain - 0 Performance Status: 1 - No physically strenuous activity, but ambulatory and able to carry out light or sedentary work (e.g. office work, light house work). (ECOG) Physical Examination: ENMT - No mouth sores, no thrush, no jaundice, Respiratory - Lungs are clear to auscultation, Cardiovascular - Regular rate and rhythm of heart, Abdomen - Soft, bowel sounds present, Extremities - No visible edema. Lab/Imaging: Most recent lab results are not available for this patient. Impression: Metastatic prostate cancer per CT-guided liver biopsy done on February 29, 2020 CT scan of abdomen pelvis done on February 01, 2020 showed hepatic lesion and bilateral lung bases subcentimeter nodules Chronic kidney injury, BPH/chronic urinary retention, now being managed with CIC and chronic bacteremia with Septra DS half tablet twice a day. Status post TURP in July 2016 biopsy confirmed benign prostatic hyperplasia. History of perforated duodenal ulcer Anemia, on oral iron supplement. Plan: Discussed with patient regarding his disease status and liver biopsy report which confirmed, metastatic prostate cancer based on histology and immunohistochemistry stains., His CT scan of abdomen pelvisIn January 2020 showed liver mets as well as bilateral lung bases metastatic disease and liver biopsy confirmed metastatic prostate cancer. Patient is a elderly gentleman with multiple comorbid condition and compromised nutritional status and performance status, and history of recurrent urine tract infection and recent hospitalization with septicemia,, , May not be a candidate for systemic chemotherapy upfront rather will consider ADT with Zoladex/Casodex along with vitamin D and calcium supplement and also obtain bone scan and CT scan of chest to assess the extent of disease. All the side effects possible benefits associated with ADT including but not limited to hot flashes, generalized weakness and fatigue, bone demineralization, gynecomastia, hyperlipidemia, mood swings, erectile dysfunction, were mentioned further teaching will done by chemotherapy nurse., Will obtain approval from his insurance prior to the Zoladex injection, in the meantime we will give him prescription for Casodex 50 mg p.o. daily. Along with vitamin D and calcium. Other option including orchiectomy was also discussed, but patient prefer ADT with Zoladex/Casodex., We will obtain baseline CBC, as patient has history of anemia, consider iron studies B12 folic acid, CMP, PSA and testosterone level then patient will return to clinic 1 month after Zoladex injection with CBC, PSA and testosterone level, Signed By: Betty Foss M.D. <<Signature on File>>
[2020-03-10 16:29] LABS: Basophils # 0.1 10^3/uL (0.0-0.1); Basophils % 0.7 %; Eosinophils # 0.1 10^3/uL (0.0-0.8); Eosinophils % 1.5 %; Hematocrit 35.4 % (42.0-52.0); Hemoglobin 10.6 g/dL (11.7-16.6); Lymphocytes # 2.1 10^3/uL (0.8-4.8); Lymphocytes % 28.8 %; Mean Corpuscular HGB Conc 29.9 g/dL (30.0-36.0); Mean Corpuscular Hemoglobin 29.7 pg (28.0-34.0); Mean Corpuscular Volume 99.2 fL (80-94); Mean Platelet Volume 9.2 fL (7.4-10.4); Monocytes # 0.5 10^3/uL (0.2-0.9); Monocytes % 6.6 %; Neutrophils # 4.52 10^3/uL (1.8-7.7); Neutrophils % 61.9 %; Nucleated Red Blood Cells % 0 %; Platelet Count 197 10^3/cmm (130-400); Red Blood Count 3.57 10^6/uL (4.1-5.3); Red Cell Distribution Width 16.6 % (12.1-15.1); White Blood Count 7.3 10^3/uL (4.0-10.0)
[2020-03-10 16:56] LABS: Testosterone Total 246.6 ng/dL (193-740)
[2020-03-10 17:07] LABS: Alanine Aminotransferase 11 U/L (0-41); Albumin Level 4.1 g/dL (3.5-5.2); Alkaline Phosphatase 140 IU/L (40-130); Anion Gap 15.8 (5-19); Aspartate Amino Transferase 12 U/L (0-40); Blood Urea Nitrogen 17 mg/dL (8-23); Calcium 8.5 mg/dL (8.5-10.5); Carbon Dioxide 21 mmol/L (22-29); Chloride 108 mmol/L (98-107); Globulin 2.8 g/dL (1.3-4.6); Glucose 136 mg/dL (65-115); Osmolality Calculated 296 mOsm/kg (285-295); Potassium 3.8 mmol/L (3.5-5.1); Sodium 141 mmol/L (136-145); Total Bilirubin 0.3 mg/dL (0.15-1.2); Total Protein 6.9 g/dL (6.6-8.7)
[2020-03-10 20:53] LABS: Ferritin 277 ng/mL (30-400); Iron 51 ug/dL (59-158); Percent Saturation 30.5 % (20-50); Total Iron Binding Capacity 167 mcg/dl; Unsaturated Iron Binding 116 ug/dL (112-347)
== END 2020-03-10 14:57 | disposition home or self-care (01) ==
LOC: ONCMED 15:02
PROVIDERS: PCP Family Medicine; Visit Provider Internal Medicine Hematology & Oncology
DX: C61 Malignant neoplasm of prostate (principal); C78.7 Secondary malignant neoplasm of liver and intrahepatic bile duct; C78.01 Secondary malignant neoplasm of right lung; C78.02 Secondary malignant neoplasm of left lung; N39.0 Urinary tract infection, site not specified; Z79.899 Other long term (current) drug therapy; Z87.440 Personal history of urinary (tract) infections
CPT/HCPCS: 36415; 80053; 82728; 83540; 83550; 84153; 84403; 85025; 99203

== ENCOUNTER 2020-03-16 13:54 | Outpatient (CLI) | payer MEDICARE, OTHER, SELFPAY ==
--- NOTE | 2020-03-16 14:15 | USCV_ITS ---
Aung Lizarraga Age: 84 Gender: M : 1935 Exam Date: 03/16/2020 14:01 Ordering Phys: Madisyn Fitch MD ([email or web address]) Technologist: Kimberlyn Zurita Exam Location: [facility] – [place] Indication: PVC'S, ABNORMAL EKG BP: 117 / 44 HR: 68 Rhythm: Sinus Technical Quality: Adequate MEASUREMENTS (Male / Female) Normal Values 2D ECHO LV Diastolic Diameter PLAX 3.7 cm 4.2 - 5.9 / 3.9 - 5.3 cm LV Systolic Diameter PLAX 2.6 cm LV Chamber Size 3.3 cm IVS Diastolic Thickness 1.4 cm 0.6 - 1.0 / 0.6 - 0.9 cm IVS Systolic Thickness 1.5 cm LVPW Diastolic Thickness 1.6 cm 0.6 - 1.0 / 0.6 - 0.9 cm LVPW Systolic Thickness 2.0 cm RV Chamber Size 3.2 cm LVOT Diameter 2.0 cm LV Ejection Fraction 2D Teich 58.8 % LV Ejection Fraction MOD 2C 53.0 % LV Ejection Fraction 2C AL 54.2 % LA Diameter 2.3 cm LA Width 2.6 cm LA Height 3.3 cm RA Width 3.1 cm RA Height 3.9 cm Aorta at Sinotubular Diameter 3.4 cm M-MODE LV Diastolic Diameter MM 5.6 cm 4.2 - 5.9 / 3.9 - 5.3 cm LV Systolic Diameter MM 3.2 cm LV Ejection Fraction MM Teich 72.2 % IVS Diastolic Thickness MM 0.7 cm 0.6 - 1.0 / 0.6 - 0.9 cm IVS Systolic Thickness MM 1.4 cm LVPW Diastolic Thickness MM 0.9 cm 0.6 - 1.0 / 0.6 - 0.9 cm LVPW Systolic Thickness MM 1.5 cm Aortic Annulus Diameter 3.5 cm LA Ao Ratio MM 0.8 MV E Point Septal Separation 0.6 cm DOPPLER AV Peak Velocity 144.0 cm/s LVOT Peak Velocity 113.0 cm/s AV Area Cont Eq vti 2.5 cm squared AV Area Cont Eq pk 2.5 cm squared MV Area PHT 3.0 cm squared Mitral E to A Ratio 0.7 MV E' Velocity 35.5 cm/s Mitral E to MV E' Ratio 5.8 Mitral E to LV E' Lateral Ratio 5.4 Mitral E to LV E' Septal Ratio 6.4 TR Peak Velocity 190.8 cm/s TR Peak Gradient 14.6 mmHg TV Peak E Velocity 58.0 cm/s Right Atrial Pressure 3.0 mmHg Pulmonary Artery Systolic Pressu 17.6 mmHg PV Peak Velocity 57.0 cm/s RV Acceleration Time 0.2 s RV Ejection Time 0.4 s RV AcT/ET 0.5 FINDINGS Left Ventricle Normal left ventricular size, systolic function and wall thickness, with no diagnostic regional wall motion abnormalities. Left ventricular ejection fraction is estimated at 65 %. Normal diastolic function. Right Ventricle Normal right ventricular size and systolic function, RVSP 29 mmHg. Right Atrium Normal right atrial size. Left Atrium Normal left atrial size. Mitral Valve Structurally normal mitral valve. No mitral valve stenosis. No mitral valve regurgitation. Aortic Valve Mildly thickened trileaflet aortic valve. No aortic valve stenosis. No aortic valve regurgitation. Tricuspid Valve Structurally normal tricuspid valve. Mild tricuspid valve regurgitation. Pulmonic Valve Structurally normal pulmonic valve. Pericardium No pericardial effusion. Aorta Normal-sized aortic root. CONCLUSIONS 1. Normal left ventricular size, systolic function and wall thickness, with no diagnostic regional wall motion abnormalities. Left ventricular ejection fraction is estimated at 65 %. 2. Normal right ventricular size and systolic function, RVSP 29 mmHg. 3. Mild tricuspid valve regurgitation. 4. No prior similar studies to compare. Madisyn Fitch MD (Electronically Signed) Final Date: 17 March 2020 17:26 S
== END 2020-03-16 13:55 | disposition home or self-care (01) ==
PROVIDERS: PCP Family Medicine; Visit Provider Internal Medicine Cardiovascular Disease
DX: R94.31 Abnormal electrocardiogram [ECG] [EKG] (principal); I07.1 Rheumatic tricuspid insufficiency
CPT/HCPCS: 93306

== ENCOUNTER 2020-03-23 06:21 | Outpatient (CLI) | payer MEDICARE, OTHER, SELFPAY ==
[2020-03-23] MEDS: lidocaine 1% INJ 20 mL INJECTION (15:00)
[2020-03-23] MEDS: goserelin acetate 10.8 mg Implant IM (15:18)
--- NOTE | 2020-03-31 21:34 | ONC FU_ITS ---
[facility] Patient Note Patient: Aung Lizarraga Unit #: [id number]: 1935 Dictated By: Dionicio EastmanDate of Visit: Mar 23, 2020 Onc MED Follow-Up/Prog Note Chief Complaint: Metastatic prostate cancer per liver biopsy History of Present Illness: Mr. Lizarraga is an 84-year-old gentleman with a complex medical history including diabetes mellitus type 2, hyperlipidemia, chronic renal disease, palpitations (EKG showed first-degree AV block, RBBB, LAFB); left knee osteoarthritis, knee replacement is under consideration and history of benign prostate hypertrophy. He underwent TURP on July 26, 2016 which confirmed benign prostatic hyperplasia. 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 He underwent cystoscopy in June 2016 showed severe trabeculation. Renal ultrasound done in April 2019 showed bilateral hydronephrosis, cystoscopy done in April 2019 revealed some adenomatous regrowth in the distal prostatic fossa. Mr Lizarraga continues to follow with urology for chronic urinary retention managed with CIC and bacteriuria on antibiotic. He is taking Bactrim DS 1/2 tablet twice a day for UTI suppression. On February 01, 2020, Mr Lizarraga went to the emergency room with hypotension, generalized weakness and fatigue, diarrhea for 1 week duration. He was diagnosed with C. difficile and sepsis. He was treated with broad-spectrum antibiotic. He also underwent CT scan of abdomen pelvis on February 01, 2020 which showed 2.2 cm hypodense mass in the right liver and multifocal new subcentimeter nodules were also identified in bilateral lung bases. Subsequently patient underwent liver biopsy on February 29, 2020 which confirmed metastatic carcinoma most consistent with a prostatic primary; immunohistochemistry was positive for PIN-4, P504s and CK Wilfrido, MCK. As per pathology note histology and immunohistochemistry stains favor prostatic primary with metastasis to the liver. Patient denies alcohol use but uses smokeless tobacco. Mr Lizarraga is here today for followup. He is due for his first dose of Zoladex. He denies any new concerns today. He denies any fever or chills. He states his appetite is good. His energy is fair. He denies any pain. He denies any nausea or vomiting. He has had no lower extremity edema. He denies any shortness of breath orthopnea. He denies chest pain, palpitations or any near syncopal episodes. His ECOG is 2. Past Medical History: C.difficle colitis Past Surgical History: Allergies: No Known Allergies. Medications: Acetaminophen 1 Tablet (of 325 mg) Oral daily Aspirin 1 Tablet (of 81 mg) Tablet, enteric coated Oral daily Cyanocobalamin 1 Capsule (of 1000 mcg) Oral daily Ferrous Sulfate 1 Tablet (of 325 (65 fe) mg) Oral b.i.d. Folic Acid 1 Tablet (of 1 mg) Oral daily glipiZIDE 1 Tablet (of 5 mg) Oral daily Lisinopril 1 Tablet (of 20 mg) Oral daily Metoprolol Tartrate 1 Tablet (of 25 mg) Oral b.i.d. Pantoprazole Sodium 1 Tablet (of 20 mg) Tablet, enteric coated Oral daily Simvastatin 1 Tablet (of 20 mg) Oral daily Tamsulosin HCl 1 Capsule (of 0.4 mg) Oral daily Tamsulosin HCl 1 Tablet (of 0.4 mg) Capsule Oral daily Family History: Social History: Mr. Lizarraga is . Review Of Symptoms: Constitutional Denies fevers, chills, night sweats, excessive fatigue or weight loss. Allergic/Immunologic No reactions. Eyes Denies significant visual changes. No diplopia. No amaurosis. ENMT Denies changes in hearing, sore throat, mouth sores, difficulty or changes in swallowing ability, and/or sinus drainage. Endocrine No diabetes, thyroid disease or hormone replacement. Denies hot flashes or night sweats. Hematologic/Lymphatic Denies easy bruising or bleeding. The patient denies any tender or palpable lymph nodes. Respiratory Denies dyspnea on exertion, chest pain, cough or hemoptysis. Denies orthopnea. Cardiovascular Denies anginal chest pain, palpitations or orthopnea. Gastrointestinal Denies nausea, vomiting, diarrhea, GI bleeding, or constipation. Denies change in bowel habits and/or stool color, no heartburn or early satiety. Genitourinary (M) Denies hematuria, dysuria, increased frequency, urgency, hesitancy or incontinence. Musculoskeletal Denies joint pain, swelling or redness. No decreased range of motion. Integumentary Denies chronic rashes, inflammation, ulcerations or skin changes. Neurologic Denies headache, blurred vision, and no areas of focal weakness or numbness. Normal gait. No sensory problems. Psychiatric Denies insomnia, depression, therese or mood swings. Vital Signs: Performed on Mar 23, 2020 14:09 Height - 66.00 in Weight - 139.0 lbs (LOW) BSA - 1.71 sq.m BMI - 22.44 Temperature - 97.8 F (LOW) Pulse - 72 /min Respiration - 20 /min BP - 129/73 mm(hg) O2 Sat - 100 % Pain - 0,2 - Ambulatory/capable of all self-care, unable to perform any work activities. Up and about more than 50% of waking hours. (ECOG) Physical Examination: Constitutional Alert, oriented, no acute distress. Skin pink, warm and dry. Head Normocephalic; atraumatic. Eyes Conjunctivae and sclerae are clear and without icterus. Pupils are reactive and equal. Neck Supple without masses or thyromegaly. No jugular venous distension. Hematologic/Lymphatic No petechiae or purpura. No tender or palpable lymph nodes in the cervical or supraclavicular areas. Respiratory Lungs are clear to auscultation without rhonchi or wheezing. Cardiovascular Regular rate and rhythm of heart without murmurs,clicks, gallops or rubs. Abdomen Non-tender, non-distended, no masses or ascites. Good bowel sounds noted in all quads. No guarding or rebound tenderness. No pulsatile masses. Back/Spine Non-tender to palpation. Extremities No visible deformities, no cyanosis, clubbing or edema. Musculoskeletal No tenderness or swelling, normal range of motion without obvious weakness. Integumentary No rashes or lesions. Neurologic No sensory or motor deficits, normal cerebellar function, normal gait. Psychiatric Alert and oriented times three. Coherent speech. Verbalizes understanding of our discussions today. Laboratory:Test performed on Mar 10, 2020 15:55 Ferritin 277 ng/mL Iron 51 mcg/dL Sodium 141 mmol/L Testosterone, Total 246.6 ng/dL Iron Binding Capacity (TIBC) 167 mcg/dl Potassium 3.8 mmol/L % Iron Saturation 30.5 % Chloride 108 mmol/L CO2 21 mmol/L UIBC 116 mcg/dL Anion Gap 15.8 BUN 17 mg/dL Creatinine 1.5 mg/dL Cr Clearance (Est) 34.9500 mL/min Glucose 136 mg/dL Osmolality - Calculated 296 mOsm/kg Calcium 8.5 mg/dL Protein, Total 6.9 g/dL Albumin 4.1 g/dL Globulin 2.8 g/dL Bilirubin, Total 0.3 mg/dL ALT (SGPT) 11 U/L AST (SGOT) 12 U/L Alkaline Phosphatase 140 IU/L WBC 7.3 10 3/uL RBC 3.57 10 6/uL HGB 10.6 g/dL HCT 35.4 % MCV 99.2 fL MCH 29.7 pg MCHC 29.9 g/dL RDW 16.6 % Platelet Count 197 10 3/cmm MPV 9.2 fL Neutrophils 4.52 10 3/uL Lymphocytes 2.1 10 3/uL Monocytes 0.5 10 3/uL Eosinophils 0.1 10 3/uL Basophils 0.1 10 3/uL Neutrophil % 61.9 % Lymphocyte % 28.8 % Monocyte % 6.6 % Eosinophil % 1.5 % Basophils % 0.7 % NRBC % 0 % PSA 1.800 ng/mL Impression: Metastatic prostate cancer per CT-guided liver biopsy done on February 29, 2020 CT scan of abdomen pelvis done on February 01, 2020 showed hepatic lesion and bilateral lung bases subcentimeter nodules Chronic kidney injury, BPH/chronic urinary retention, now being managed with CIC and chronic bacteremia with Septra DS half tablet twice a day. Status post TURP in July 2016 biopsy confirmed benign prostatic hyperplasia. History of perforated duodenal ulcer Anemia, on oral iron supplement. Dr Foss discussed with Mr Lizarraga his disease status and liver biopsy report . The report confirmed, metastatic prostate cancer based on histology and immunohistochemistry stains. His CT scan of abdomen pelvis in January 2020 showed liver mets as well as bilateral lung bases. Mr Lizarraga is a elderly gentleman with multiple comorbid condition and compromised nutritional status and performance status. He has a history of recurrent urine tract infection and recent hospitalization with septicemia. Dr Foss reported that Mr Lizarraga may not be a candidate for systemic chemotherapy upfront, but rather try ADT with Zoladex/Casodex along with vitamin D and calcium supplement. Other option including orchiectomy was also discussed per Dr Foss, but Mr Lizarraga preferred a trial of ADT with Zoladex/Casodex. Dr Foss requested a bone scan and CT scan of chest to assess the extent of disease. Plan: 1. Continue on Casodex 50 mg daily [address] per Dr Foss's prescription. 2. Proceed with Zoladex 10.8 mg today. 3. Labs from 03/10/2020 were reviewed in detail and discussed with Mr Lizarraga and a copy was given to him. WBC 7.3, hemoglobin 10.6, platelets 1 97,000 ANC is 4500. Potassium 3.8 creatinine 1.5 LFTs are normal. His PSA was 1.8. 4. We will plan to have him return in 1 month for follow-up with CBC PSA and testosterone level. 5. Mr. Lizarraga was encouraged to contact us in interim should questions or problems arise. 6. The patient was informed of the treatment plan and specific drugs were discussed. We also discussed how the medication works and identified common side effects including hot flashes, headache, dizziness, urticaria, flushing, fatigue, nausea, diarrhea, constipation, joint/muscle pain, DVT/thrombophlebitis, palpitations, injection site redness/soreness, infection at injection site, alopecia is reported at < 5%. They verbally state that they understand to take all medications as directed by the provider unless otherwise indicated. Instructions for oral care with baking soda and salt water rinses as well as a guide for use of [id number] medication were provided with the treatment plan. They have been given a written patient treatment plan, of which a copy is in the chart, as well as specific drug information. They have no questions and verbalized understanding and are willing to proceed with treatment at this time. The majority of this visit (greater than 35 minutes) was spent in face to face communication with this patient and/or his family in regards to plan of care, side effect identification and management. 7. Mr. Lizarraga did have echocardiogram on 03/16/2020 which reported an ejection fraction estimated at 65%. Normal diastolic function. No diagnostic regional wall motion maladies noted. Normal left ventricular size and systolic function. Signed By: Nacho Eastman.N.P.-JAIRON, AOALEKSANDRA Betty Foss MD <<Signature on File>>
== END 2020-03-23 06:22 | disposition home or self-care (01) ==
LOC: ONCMED 06:23
PROVIDERS: PCP Family Medicine; Visit Provider Nurse Practitioner
DX: C61 Malignant neoplasm of prostate (principal); C78.7 Secondary malignant neoplasm of liver and intrahepatic bile duct; R91.8 Other nonspecific abnormal finding of lung field; E11.22 Type 2 diabetes mellitus with diabetic chronic kidney disease; N18.9 Chronic kidney disease, unspecified; Z79.84 Long term (current) use of oral hypoglycemic drugs; N40.1 Benign prostatic hyperplasia with lower urinary tract symptoms; R33.8 Other retention of urine; N30.10 Interstitial cystitis (chronic) without hematuria; R82.71 Bacteriuria; D64.9 Anemia, unspecified; Z87.11 Personal history of peptic ulcer disease; Z79.818 Long term (current) use of other agents affecting estrogen receptors and estrogen levels; Z79.899 Other long term (current) drug therapy
CPT/HCPCS: 96372; 96402; 99214; J9202

== ENCOUNTER 2020-04-12 09:15 | Outpatient (CLI) | payer MEDICARE, OTHER, SELFPAY ==
--- NOTE | 2020-04-12 09:17 | NM_ITS ---
WS: [id number] NUCLEAR MEDICINE BONE SCAN Radiopharmaceutical: 24.7 Tc-99m MDP mCi IV Injection site: Right antecubital Postinjection imaging delay: 1 hr CLINICAL INFORMATION: PROSTATE CANCER COMPARISON: None. FINDINGS: Bone lesions: There are no osseous lesions suspicious for metastatic disease. Soft tissue contours: Normal. Kidneys: Normal. Other findings: Small amount of focal uptake in the right cervical spine posterior elements approxima tely C5 likely degenerative facet arthritis. Degenerative uptake involving both AC joints and sternoc lavicular joints. Degenerative type uptake involving both knees. NM/NM bone scan whole body* [id number] IMPRESSION: No evidence of osseous metastatic disease.
== END 2020-04-12 09:16 | disposition home or self-care (01) ==
PROVIDERS: PCP Family Medicine; Visit Provider Internal Medicine Hematology & Oncology
DX: C61 Malignant neoplasm of prostate (principal)
CPT/HCPCS: 78306; A9561

== ENCOUNTER 2020-04-20 08:47 | Outpatient (CLI) | payer MEDICARE, OTHER, SELFPAY ==
[2020-04-20 09:22] LABS: Basophils # 0.1 10^3/uL (0.0-0.1); Basophils % 0.7 %; Eosinophils # 0.2 10^3/uL (0.0-0.8); Eosinophils % 2.2 %; Hematocrit 33.7 % (42.0-52.0); Hemoglobin 10.7 g/dL (11.7-16.6); Lymphocytes # 1.4 10^3/uL (0.8-4.8); Lymphocytes % 20.6 %; Mean Corpuscular HGB Conc 31.8 g/dL (30.0-36.0); Mean Corpuscular Hemoglobin 30.9 pg (28.0-34.0); Mean Corpuscular Volume 97.4 fL (80-94); Mean Platelet Volume 8.8 fL (7.4-10.4); Monocytes # 0.6 10^3/uL (0.2-0.9); Monocytes % 8.3 %; Neutrophils # 4.63 10^3/uL (1.8-7.7); Neutrophils % 67.9 %; Nucleated Red Blood Cells % 0 %; Platelet Count 179 10^3/cmm (130-400); Red Blood Count 3.46 10^6/uL (4.1-5.3); Red Cell Distribution Width 14.6 % (12.1-15.1); White Blood Count 6.8 10^3/uL (4.0-10.0)
[2020-04-20 11:05] LABS: Prostate Specific Antigen 0.357 ng/mL (0-4); Testosterone Total 4.5 ng/dL (193-740)
[2020-04-20 12:42] LABS: Ferritin 235 ng/mL (30-400); Iron 75 ug/dL (59-158); Percent Saturation 34.8 % (20-50); Total Iron Binding Capacity 215 mcg/dl; Unsaturated Iron Binding 140 ug/dL (112-347)
--- NOTE | 2020-04-20 15:08 | ONC FU_ITS ---
Dr. Foss follow up note Patient: Aung Liazrraga Unit #: [id number]: 1935 Dicatated By: Betty Foss M.D.Date of Visit:Apr 20, 2020 Onc Med Follow-up/Prog Note History of Present Illness: Mr. Lizarraga is an 84-year-old gentleman with a complex medical history including diabetes mellitus type 2, hyperlipidemia, chronic renal disease, palpitations (EKG showed first-degree AV block, RBBB, LAFB); left knee osteoarthritis, knee replacement is under consideration and history of benign prostate hypertrophy. He underwent TURP on July 26, 2016 which confirmed benign prostatic hyperplasia. 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 He underwent cystoscopy in June 2016 showed severe trabeculation. Renal ultrasound done in April 2019 showed bilateral hydronephrosis, cystoscopy done in April 2019 revealed some adenomatous regrowth in the distal prostatic fossa. Mr Lizarraga continues to follow with urology for chronic urinary retention managed with CIC and bacteriuria on antibiotic. He is taking Bactrim DS 1/2 tablet twice a day for UTI suppression. On February 01, 2020, Mr Lizarraga went to the emergency room with hypotension, generalized weakness and fatigue, diarrhea for 1 week duration. He was diagnosed with C. difficile and sepsis. He was treated with broad-spectrum antibiotic. He also underwent CT scan of abdomen pelvis on February 01, 2020 which showed 2.2 cm hypodense mass in the right liver and multifocal new subcentimeter nodules were also identified in bilateral lung bases. Subsequently patient underwent liver biopsy on February 29, 2020 which confirmed metastatic carcinoma most consistent with a prostatic primary; immunohistochemistry was positive for PIN-4, P504s and CK JASPER Anna. As per pathology note histology and immunohistochemistry stains favor prostatic primary with metastasis to the liver. Patient denies alcohol use but uses smokeless tobacco. Started on Zoladex every 3 months on March 23, 2020 along with daily Casodex Came for follow-up, denies any specific complaints except chronic left knee pain, due to severe osteoarthritis, now knee replacement is under consideration. Otherwise no fever chills, no nausea or vomiting, no diarrhea constipation, no jaundice, no abdominal pain occasionally hot flashes otherwise tolerating Zoladex/Casodex well, Denies any shortness of breath or palpitation or chest pain Medications: Acetaminophen 1 Tablet (of 325 mg) Oral daily, Aspirin 1 Tablet (of 81 mg) Tablet, enteric coated Oral daily, Cyanocobalamin 1 Capsule (of 1000 mcg) Oral daily, Ferrous Sulfate 1 Tablet (of 325 (65 fe) mg) Oral b.i.d., Folic Acid 1 Tablet (of 1 mg) Oral daily, glipiZIDE 1 Tablet (of 5 mg) Oral daily, Lisinopril 1 Tablet (of 20 mg) Oral daily, Metoprolol Tartrate 1 Tablet (of 25 mg) Oral b.i.d., Pantoprazole Sodium 1 Tablet (of 20 mg) Tablet, enteric coated Oral daily, Simvastatin 1 Tablet (of 20 mg) Oral daily, Tamsulosin HCl 1 Capsule (of 0.4 mg) Oral daily, Tamsulosin HCl 1 Tablet (of 0.4 mg) Capsule Oral daily Allergies: No Known Allergies. Review of Systems: Constitutional - Appetite is good and weight is stable. No fever, night sweats, or hot flashes. Energy level is fair, ENMT - No sinus congestion/drainage. No mouth sores. No sore throat or difficulty swallowing, Hematologic/Lymphatic - No abnormal bruising or bleeding, Respiratory - No shortness of breath. No cough. No pleuritic pain or hemoptysis, Cardiovascular - No angina pain. No palpitations, Gastrointestinal - No nausea or vomiting. No heartburn or acid reflux. Positive for diarrhea no constipation. No blood in the stool or black stools, Genitourinary (M) - No dysuria or hematuria. No urinary frequency. No urgency or incontinence. Positive for catheter use, Musculoskeletal - Positive for joint or bone pain, Integumentary - , Neurologic - No headache or dizziness. No numbness or tingling. No other focal neurologic symptoms, Psychiatric - No anxiety or depression. No insomnia. Vital Signs: Performed on Apr 20, 2020 10:57 Height - 66.00 in Weight - 137.0 lbs (LOW) BSA - 1.70 sq.m BMI - 22.11 Temperature - 98.0 F (LOW) Pulse - 69 /min Respiration - 18 /min BP - 108/57 mm(hg) O2 Sat - 100 % Pain - 0 Performance Status: 1 - No physically strenuous activity, but ambulatory and able to carry out light or sedentary work (e.g. office work, light house work). (ECOG) Physical Examination: ENMT - No mouth sores, no thrush, no jaundice, Respiratory - Lungs are clear to auscultation g, Cardiovascular - Regular rate and rhythm of heart, Abdomen - Soft, bowel sounds present, Extremities - No visible edema. Lab/Imaging: Test performed on Mar 10, 2020 15:55 Ferritin 277 ng/mL Iron 51 mcg/dL Sodium 141 mmol/L Testosterone, Total 246.6 ng/dL Iron Binding Capacity (TIBC) 167 mcg/dl Potassium 3.8 mmol/L % Iron Saturation 30.5 % Chloride 108 mmol/L CO2 21 mmol/L UIBC 116 mcg/dL Anion Gap 15.8 BUN 17 mg/dL Creatinine 1.5 mg/dL Cr Clearance (Est) 34.9500 mL/min Glucose 136 mg/dL Osmolality - Calculated 296 mOsm/kg Calcium 8.5 mg/dL Protein, Total 6.9 g/dL Albumin 4.1 g/dL Globulin 2.8 g/dL Bilirubin, Total 0.3 mg/dL ALT (SGPT) 11 U/L AST (SGOT) 12 U/L Alkaline Phosphatase 140 IU/L WBC 7.3 10 3/uL RBC 3.57 10 6/uL HGB 10.6 g/dL HCT 35.4 % MCV 99.2 fL MCH 29.7 pg MCHC 29.9 g/dL RDW 16.6 % Platelet Count 197 10 3/cmm MPV 9.2 fL Neutrophils 4.52 10 3/uL Lymphocytes 2.1 10 3/uL Monocytes 0.5 10 3/uL Eosinophils 0.1 10 3/uL Basophils 0.1 10 3/uL Neutrophil % 61.9 % Lymphocyte % 28.8 % Monocyte % 6.6 % Eosinophil % 1.5 % Basophils % 0.7 % NRBC % 0 % PSA 1.800 ng/mL Impression: Metastatic prostate cancer per CT-guided liver biopsy done on February 29, 2020 CT scan of abdomen pelvis done on February 01, 2020 showed hepatic lesion and bilateral lung bases subcentimeter nodules Chronic kidney injury, BPH/chronic urinary retention, now being managed with CIC and chronic bacteremia with Septra DS half tablet twice a day. Status post TURP in July 2016 biopsy confirmed benign prostatic hyperplasia. History of perforated duodenal ulcer Anemia, on oral iron supplement. discussed with Mr Lizarraga his disease status and liver biopsy report . The report confirmed, metastatic prostate cancer based on histology and immunohistochemistry stains. His CT scan of abdomen pelvis in January 2020 showed liver mets as well as bilateral lung bases. Mr Lizarraga is a elderly gentleman with multiple comorbid condition and compromised nutritional status and performance status. He has a history of recurrent urine tract infection and recent hospitalization with septicemia. reported that Mr Lizarraga may not be a candidate for systemic chemotherapy upfront, but rather try ADT with Zoladex/Casodex along with vitamin D and calcium supplement. Other option including orchiectomy but Mr Lizarraga preferred a trial of ADT with Zoladex/Casodex. requested a bone scan and CT scan of chest to assess the extent of disease. Plan: Discussed with patient regarding his labs white blood count 6.8 hemoglobin 10.7 hematocrit 33.7 platelets 179,000 MCV 97.4 PSA 0.357 compared to 1.8 on March 10, 2020 and testosterone 4.5 Bone scan done on April 12, 2020 showed no evidence of bone mets Clinically, patient is doing well with no new signs symptoms except persistent left knee pain which is due to severe osteoarthritis and left knee replacement is under consideration. His follow-up labs shows prostate cancer is responding well to ADT no PSA has gone down further now 0.357 compared to 1.8 on March 10, 2020 and patient is tolerating Zoladex/Casodex well ,, recently done bone scan shows no abnormality. Patient will continue daily Casodex, he was given Zoladex on March 23, 2020 so he will return to clinic in 2 months with CBC CMP and follow-up CT scan of chest abdomen pelvis and for Zoladex. As far as mild anemia is concerned, is well compensated, etiology could be multifactorial, considering his age underlying myelodysplasia cannot be ruled out or anemia of chronic disease, will obtain basic anemia work-up which includes iron studies B12 folic acid level, reticulocyte count and review and make further recommendations. Signed By: Betty Foss M.D. <<Signature on File>>
[2020-04-21 01:10] LABS: Folate Level > 20.0 ng/mL (4.5-32.2)
== END 2020-04-20 08:48 | disposition home or self-care (01) ==
LOC: ONCMED 08:51
PROVIDERS: PCP Family Medicine; Visit Provider Internal Medicine Hematology & Oncology
DX: C61 Malignant neoplasm of prostate (principal); C78.01 Secondary malignant neoplasm of right lung; C78.02 Secondary malignant neoplasm of left lung; C78.7 Secondary malignant neoplasm of liver and intrahepatic bile duct; N18.9 Chronic kidney disease, unspecified; N40.1 Benign prostatic hyperplasia with lower urinary tract symptoms; R33.8 Other retention of urine; R78.81 Bacteremia; K26.5 Chronic or unspecified duodenal ulcer with perforation; D50.9 Iron deficiency anemia, unspecified; Z79.818 Long term (current) use of other agents affecting estrogen receptors and estrogen levels
CPT/HCPCS: 82728; 82746; 83540; 83550; 84153; 84403; 85025; 99214

== ENCOUNTER → 2020-06-02 14:04 | Outpatient (BNVA) | payer MEDICARE, OTHER, SELFPAY | PROVIDERS: PCP Family Medicine; Visit Provider Nurse Practitioner Family | DX: N30.20 Other chronic cystitis without hematuria (principal); C61 Malignant neoplasm of prostate; R33.9 Retention of urine, unspecified | CPT/HCPCS: 81003 ==

== ENCOUNTER → 2020-06-06 | Day surgery (SDC) | payer MEDICARE, OTHER, SELFPAY | PROVIDERS: PCP Family Medicine; Visit Provider Orthopaedic Surgery | DX: Z01.818 Encounter for other preprocedural examination (principal); R33.9 Retention of urine, unspecified | CPT/HCPCS: 93005 ==

== ENCOUNTER → 2020-06-14 10:56 | Outpatient (BNVA) | payer MEDICARE, OTHER, SELFPAY | PROVIDERS: PCP Family Medicine; Visit Provider Urology | DX: N30.20 Other chronic cystitis without hematuria (principal); Z11.52 Encounter for screening for COVID-19; Z01.812 Encounter for preprocedural laboratory examination | CPT/HCPCS: 87077; 87086; 87184; 87635 ==

== ENCOUNTER 2020-06-15 08:47 | Outpatient (CLI) | payer MEDICARE, OTHER, SELFPAY ==
--- NOTE | 2020-06-15 08:53 | CT_ITS ---
WS: [id number] CT CHEST, ABDOMEN, AND PELVIS TECHNIQUE: Contrast-enhanced CT of the chest, abdomen, and pelvis with coronal and sagittal reformatt ed images. CLINICAL INFORMATION: PROSTATE CANCER, SECONDARY MALIGNANT NEOPLASM OF LIVER COMPARISON: CT February 01, 2020 DLP: 1884.[address] scans at [facility] use at least one of these dose optimization techniques: automat ed exposure control; mA and/or kV adjustment per patient size (includes targeted exams where dose is matched to clinical indication); or iterative reconstruction. CT CHEST: No prior chest CTs for comparison. Innumerable small noncalcified nodules throughout both lungs consi stent with metastatic disease. Largest nodules measure approximately 7 to 8 mm. Moderate chronic emph ysematous changes. No focal pneumonia or pleural fluid. No mediastinal or hilar lymphadenopathy. No a xillary lymphadenopathy. Ankylosis thoracic spine. No acute appearing compression fractures. CT ABDOMEN AND PELVIS: Numerous heterogeneously enhancing metastatic lesions throughout both hepatic lobes. Largest metastat ic lesion right hepatic lobe peripherally measuring 5.3 x 3.9 CM. Mild diffuse fatty infiltration the liver. Portal vein and splenic vein are patent. Mild fatty atrophy of the pancreas. Small esophageal hiatal hernia. Normal spleen. Mild fatty atrophy of the pancreas. Adrenal glands are normal. Bilater al renal cortical atrophy. No hydronephrosis. Markedly enlarged prostate measuring 6.1 CM. Diffuse bladder wall thickening likely due to bladder ou tlet obstruction. Sigmoid diverticulosis. No evidence of high-grade small or large bowel obstruction. Tiny fat-containing umbilical hernia. No abdominal or pelvic lymphadenopathy. No inguinal lymphadeno mayela. Normal lumbar spine. CT/CT chest abd pel w con* IMPRESSION: 1. Innumerable subcentimeter noncalcified nodules throughout both lungs most c onsistent with metastatic disease. Largest nodules measure 7 8 mm. Lung bases a re similar in appearance to the CT abdomen pelvis February 01, 2020. No prior chest CTs for comparison 2. No mediastinal or hilar lymphadenopathy. 3. Numerous peripherally enhancing metastatic lesions throughout both hepatic lobes significantly progressed compared to previous. Largest lesion right hepat ic lobe measures 5.3 x 3.9 cm. This appears progressed compared to the prior no ncontrast CT February 01, 2020. 4. No adenopathy in the abdomen or pelvis. 5. Enlarged prostate measuring 6.1 cm with evidence of bladder outlet obstruct ion.
[2020-06-15] MEDS: iohexol 300 mg/mL 50 mL Btl PO (09:08)
[2020-06-15 10:14] LABS: Basophils # 0.1 10^3/uL (0.0-0.1); Basophils % 1.1 %; Eosinophils # 0.1 10^3/uL (0.0-0.8); Eosinophils % 1.9 %; Hematocrit 38.2 % (42.0-52.0); Hemoglobin 12.2 g/dL (11.7-16.6); Lymphocytes # 1.8 10^3/uL (0.8-4.8); Mean Corpuscular HGB Conc 31.9 g/dL (30.0-36.0); Mean Corpuscular Hemoglobin 31.4 pg (28.0-34.0); Mean Corpuscular Volume 98.2 fL (80-94); Mean Platelet Volume 9.4 fL (7.4-10.4); Monocytes # 0.6 10^3/uL (0.2-0.9); Monocytes % 8.7 %; Neutrophils # 3.88 10^3/uL (1.8-7.7); Nucleated Red Blood Cells % 0 %; Platelet Count 213 10^3/cmm (130-400); Red Blood Count 3.89 10^6/uL (4.1-5.3); Red Cell Distribution Width 12.8 % (12.1-15.1); White Blood Count 6.5 10^3/uL (4.0-10.0)
[2020-06-15 10:58] LABS: Prostate Specific Antigen 0.089 ng/mL (0-4)
[2020-06-15 11:09] LABS: Alanine Aminotransferase 11 U/L (0-41); Albumin Level 4.4 g/dL (3.5-5.2); Alkaline Phosphatase 111 IU/L (40-130); Anion Gap 16.6 (5-19); Aspartate Amino Transferase 14 U/L (0-40); Blood Urea Nitrogen 35 mg/dL (8-23); Calcium 9.6 mg/dL (8.5-10.5); Carbon Dioxide 21 mmol/L (22-29); Chloride 106 mmol/L (98-107); Globulin 3.4 g/dL (1.3-4.6); Glucose 143 mg/dL (65-115); Osmolality Calculated 298 mOsm/kg (285-295); Potassium 4.6 mmol/L (3.5-5.1); Sodium 139 mmol/L (136-145); Total Bilirubin 0.4 mg/dL (0.15-1.2); Total Protein 7.8 g/dL (6.6-8.7)
[2020-06-15] MEDS: iodixanol 320 mg/mL 100mL Btl IV (11:32)
== END 2020-06-15 08:48 | disposition home or self-care (01) ==
LOC: RADWPI 08:50 → ONCMED 09:27
PROVIDERS: PCP Family Medicine; Visit Provider Internal Medicine Hematology & Oncology
DX: C61 Malignant neoplasm of prostate (principal); C78.7 Secondary malignant neoplasm of liver and intrahepatic bile duct; C78.00 Secondary malignant neoplasm of unspecified lung; N40.0 Benign prostatic hyperplasia without lower urinary tract symptoms; N32.0 Bladder-neck obstruction
CPT/HCPCS: 36415; 71260; 74177; 80053; 84153; 85025; Q9967

== ENCOUNTER 2020-06-17 05:41 | Outpatient (CLI) | payer MEDICARE, OTHER, SELFPAY ==
--- NOTE | 2020-06-17 10:23 | ONC FU_ITS ---
Dr. Foss follow up note Patient: Aung Lizarraga Unit #: [id number]: [id number] Dicatated By: Betty Foss M.D.Date of Visit:Jun 17, 2020 Onc Med Follow-up/Prog Note History of Present Illness: Mr. Lizarraga is an 84-year-old gentleman with a complex medical history including diabetes mellitus type 2, hyperlipidemia, chronic renal disease, palpitations (EKG showed first-degree AV block, RBBB, LAFB); left knee osteoarthritis, knee replacement is under consideration and history of benign prostate hypertrophy. He underwent TURP on July 26, 2016 which confirmed benign prostatic hyperplasia. 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 He underwent cystoscopy in June 2016 showed severe trabeculation. Renal ultrasound done in April 2019 showed bilateral hydronephrosis, cystoscopy done in April 2019 revealed some adenomatous regrowth in the distal prostatic fossa. Mr Lizarraga continues to follow with urology for chronic urinary retention managed with CIC and bacteriuria on antibiotic. He is taking Bactrim DS 1/2 tablet twice a day for UTI suppression. On February 01, 2020, Mr Lizarraga went to the emergency room with hypotension, generalized weakness and fatigue, diarrhea for 1 week duration. He was diagnosed with C. difficile and sepsis. He was treated with broad-spectrum antibiotic. He also underwent CT scan of abdomen pelvis on February 01, 2020 which showed 2.2 cm hypodense mass in the right liver and multifocal new subcentimeter nodules were also identified in bilateral lung bases. Subsequently patient underwent liver biopsy on February 29, 2020 which confirmed metastatic carcinoma most consistent with a prostatic primary; immunohistochemistry was positive for PIN-4, P504s and CK JASPER Anna. As per pathology note histology and immunohistochemistry stains favor prostatic primary with metastasis to the liver. Patient denies alcohol use but uses smokeless tobacco. Started on Zoladex every 3 months on March 23, 2020 along with daily Casodex Follow-up CT scan of chest abdomen pelvis done on June 15, 2020 showed innumerable subcentimeter noncalcified nodules throughout both lungs most consistent with metastatic disease largest is about 8 mm. Lung bases are similar in appearance to CT scan of abdomen pelvis done on February 01, 2020. No mediastinal or hilar lymphadenopathy Numerous peripherally enhancing metastatic lesion throughout both hepatic lobes significantly progressed compared to previous. Largest lesion right hepatic lobe measuring 5.3 x 3.9 cm, has progressed compared to prior CT scan done on February 01, 2020 No adenopathy in abdomen or pelvis. Enlarged prostate with 6.1 cm with evidence of bladder outlet obstruction. PSA down to 0.089, Casodex was discontinued on June 17, 2020, While continued with 3 monthly Zoladex Came for follow-up, denies any specific complaint except pain in his left knee, now left knee surgery under consideration, scheduled for coming Saturday. No nausea or vomiting, no fever chills, no diarrhea or constipation, no melena or hematochezia,, no abdominal pain, no hemoptysis or hematemesis, no jaundice, no dysuria patient still used in and out cath for urination, as per patient he has seen Dr. Singleton recently and was advised to continue with in and out catheterization. Occasionally hot flashes otherwise tolerating Zoladex/Casodex well Medications: Acetaminophen 1 Tablet (of 325 mg) Oral daily, Aspirin 1 Tablet (of 81 mg) Tablet, enteric coated Oral daily, Cyanocobalamin 1 Capsule (of 1000 mcg) Oral daily, Ferrous Sulfate 1 Tablet (of 325 (65 fe) mg) Oral b.i.d., Folic Acid 1 Tablet (of 1 mg) Oral daily, glipiZIDE 1 Tablet (of 5 mg) Oral daily, Lisinopril 1 Tablet (of 20 mg) Oral daily, Metoprolol Tartrate 1 Tablet (of 25 mg) Oral b.i.d., Pantoprazole Sodium 1 Tablet (of 20 mg) Tablet, enteric coated Oral daily, Simvastatin 1 Tablet (of 20 mg) Oral daily, Tamsulosin HCl 1 Capsule (of 0.4 mg) Oral daily, Tamsulosin HCl 1 Tablet (of 0.4 mg) Capsule Oral daily Allergies: No Known Allergies. Review of Systems: Constitutional - Appetite is good and weight is stable. No fever, night sweats, or hot flashes. Energy level is fair, ENMT - No sinus congestion/drainage. No mouth sores. No sore throat or difficulty swallowing, Hematologic/Lymphatic - No abnormal bruising or bleeding, Respiratory - No shortness of breath. No cough. No pleuritic pain or hemoptysis, Cardiovascular - No angina pain. No palpitations, Gastrointestinal - No nausea or vomiting. No heartburn or acid reflux. Positive for diarrhea no constipation. No blood in the stool or black stools, Genitourinary (M) - No dysuria or hematuria. No urinary frequency. No urgency or incontinence. Positive for catheter use, Musculoskeletal - Positive for joint or bone pain, Neurologic - No headache or dizziness. No numbness or tingling. No other focal neurologic symptoms, Psychiatric - No anxiety or depression. No insomnia. Vital Signs: Performed on Jun 17, 2020 09:27 Height - 66.00 in Weight - 147.2 lbs (HIGH) BSA - 1.76 sq.m BMI - 23.76 Temperature - 97.8 F (LOW) Pulse - 54 /min (LOW) Respiration - 18 /min BP - 127/60 mm(hg) O2 Sat - 93 % (LOW) Pain - 0 Performance Status: 1 - No physically strenuous activity, but ambulatory and able to carry out light or sedentary work (e.g. office work, light house work). (ECOG) Physical Examination: ENMT - No mouth sores, no thrush, no jaundice, Respiratory - Lungs are clear to auscultation, Cardiovascular - Regular rate and rhythm of heart, Abdomen - Soft, bowel sounds present, Extremities - No visible edema. Lab/Imaging: Test performed on Apr 20, 2020 09:05 Ferritin 235 ng/mL Folate, Serum > 20.0 ng/mL Iron 75 mcg/dL Testosterone, Total 4.5 ng/dL Iron Binding Capacity (TIBC) 215 mcg/dl % Iron Saturation 34.8 % UIBC 140 mcg/dL WBC 6.8 10 3/uL RBC 3.46 10 6/uL HGB 10.7 g/dL HCT 33.7 % MCV 97.4 fL MCH 30.9 pg MCHC 31.8 g/dL RDW 14.6 % Platelet Count 179 10 3/cmm MPV 8.8 fL Neutrophils 4.63 10 3/uL Lymphocytes 1.4 10 3/uL Monocytes 0.6 10 3/uL Eosinophils 0.2 10 3/uL Basophils 0.1 10 3/uL Neutrophil % 67.9 % Lymphocyte % 20.6 % Monocyte % 8.3 % Eosinophil % 2.2 % Basophils % 0.7 % NRBC % 0 % PSA 0.357 ng/mL Test performed on Apr 20, 2020 08:52 Manual Diff DUPLICATE ORDER Test performed on Mar 10, 2020 15:55 Sodium 141 mmol/L Potassium 3.8 mmol/L Chloride 108 mmol/L CO2 21 mmol/L Anion Gap 15.8 BUN 17 mg/dL Creatinine 1.5 mg/dL Cr Clearance (Est) 34.9500 mL/min Glucose 136 mg/dL Osmolality - Calculated 296 mOsm/kg Calcium 8.5 mg/dL Protein, Total 6.9 g/dL Albumin 4.1 g/dL Globulin 2.8 g/dL Bilirubin, Total 0.3 mg/dL ALT (SGPT) 11 U/L AST (SGOT) 12 U/L Alkaline Phosphatase 140 IU/L Impression: Metastatic prostate cancer per CT-guided liver biopsy done on February 29, 2020 CT scan of abdomen pelvis done on February 01, 2020 showed hepatic lesion and bilateral lung bases subcentimeter nodules Chronic kidney injury, BPH/chronic urinary retention, now being managed with CIC and chronic bacteremia with Septra DS half tablet twice a day. Status post TURP in July 2016 biopsy confirmed benign prostatic hyperplasia. History of perforated duodenal ulcer Anemia, on oral iron supplement. discussed with Mr Lizarraga his disease status and liver biopsy report . The report confirmed, metastatic prostate cancer based on histology and immunohistochemistry stains. His CT scan of abdomen pelvis in January 2020 showed liver mets as well as bilateral lung bases. Mr Lizarraga is a elderly gentleman with multiple comorbid condition and compromised nutritional status and performance status. He has a history of recurrent urine tract infection and recent hospitalization with septicemia. reported that Mr Lizarraga may not be a candidate for systemic chemotherapy upfront, but rather try ADT with Zoladex/Casodex along with vitamin D and calcium supplement. Other option including orchiectomy but Mr Lizarraga preferred a trial of ADT with Zoladex/Casodex. requested a bone scan and CT scan of chest to assess the extent of disease. Follow-up CT scan of chest abdomen pelvis done on June 15, 2020 showed stable bilateral subcentimeter pulmonary nodules, disease progression in the liver and no abdominal, pelvic or mediastinal lymphadenopathy, PSA is down to 0.089 Casodex was discontinued on June 17, 2019 because of progressive generalized weakness and fatigue and excellent response with a PSA down to subzero as follow-up CT scan of chest abdomen pelvis shows disease progression liver, there was a concern whether patient may have second primary so liver biopsy was planned, along with a colonoscopy to rule out GI primary. Plan: Discussed with patient regarding his labs white blood count 6.5 hemoglobin 12.2 hematocrit 38.2 platelets 213,000 CMP within normal limit except glucose 143 and creatinine 1.6 PSA 0.089 compared to 0.357 on April 20, 2020 and follow-up CT scan of chest abdomen pelvis which showed stable bilateral subcentimeter pulmonary nodules no central lymphadenopathy but disease progression in the liver, and enlarged prostate with evidence of bladder outlet obstruction. Clinically, no new signs symptoms, tolerating Zoladex/Casodex well but with expected side effect it generalized weakness and fatigue which could be due to Casodex so we will discontinue Casodex but continue with Zoladex and he will receive his next 3 monthly dose today and as his follow-up CT scan of chest abdomen pelvis shows stable subcentimeter bilateral pulmonary nodules but disease progression in the liver and his PSA continue to improve and no evidence of abdominal or pelvic lymphadenopathy, question is whether he has a second primary in the liver or castrate resistant prostate cancer. At this point we will consider repeating liver biopsy, case was discussed with pathologist, as per discussion he did not get enough tissue initially, so we will request multiple core biopsies to ensure sufficient tissue for proper testing and if needed for cancer type ID or molecular profiling. And also consider colonoscopy to rule out colon pathology. As per his bladder outlet obstruction due to prostate is a concern, case was discussed with Dr. Singleton and requested to evaluate patient for palliative TURP. Patient will return to clinic after liver biopsy or colonoscopy if it shows any pathology, for further discussion Signed By: Betty Foss M.D. <<Signature on File>>
[2020-06-17] MEDS: goserelin acetate 10.8 mg Implant IM (10:37)
[2020-06-17] MEDS: lidocaine 1% INJ 20 mL INJECTION (10:57)
== END 2020-06-17 05:42 | disposition home or self-care (01) ==
LOC: ONCMED 05:44
PROVIDERS: PCP Family Medicine; Visit Provider Internal Medicine Hematology & Oncology
DX: C61 Malignant neoplasm of prostate (principal); C78.7 Secondary malignant neoplasm of liver and intrahepatic bile duct; N40.1 Benign prostatic hyperplasia with lower urinary tract symptoms; R33.8 Other retention of urine; N32.0 Bladder-neck obstruction; Z79.818 Long term (current) use of other agents affecting estrogen receptors and estrogen levels
CPT/HCPCS: 96372; 96402; 99214; J9202

== ENCOUNTER 2020-06-20 09:28 | Observation (INO) | payer MEDICARE, OTHER, SELFPAY ==
[2020-06-06 09:01] VITALS: BMI 22.6
--- NOTE | 2020-06-06 09:40 | ECG_ITS ---
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1935 Requested By: Demond Fatima Order Number: [id number] Erika MD: SUSI BELL Measurements Intervals [place] Rate: 65 P: 34 IN: 219 QRS: -18 QRSD: 92 T: 48 QT: 391 QTc: 408 Interpretive Statements SINUS RHYTHM WITH FIRST DEGREE AV BLOCK Compared to ECG 02/01/2020 22:48:58 First degree AV block now present Right bundle-branch block no longer present Left anterior fascicular block no longer present Myocardial infarct finding no longer present Electronically Signed On 06-06-2020 18:37:55 SIGN WRITER LETTERER OR PAINTER by SUSI BELL [email or web address]
--- NOTE | 2020-06-06 13:30 | ANES.PREANE2 ---
Pre-Anesthetic Assessment Pre-Anesthetic Assessment: Height/Weight: Height 1.68 m Weight 63.503 kg Preop Diagnosis: DJD left knee Proposed Procedure: Operation Date: 06/20/20 09:40 Proposed Procedures p Total Knee Arthroplasty 67460 M17.12(Left) - Priyank Sandoval MD Was Beta Debi taken within 24 hours: Yes Social: Social History: Tobacco and No alcohol Comment: chews Exam: Pre-Anes Outpt Exam: alert, oriented x 3, clear to auscultation bilaterally and regular rate & rhythm Airway: Submandibular: WNL Cervical ROM: WNL MP: 2 Dentition: False Pulmonary: Pulmonary: None reported CV/HEM: CV/HEM: Anemia, CAD, HTN and VT : : Chronic renal Insufficiency Hepatic: Hepatic: None reported GI: GI: GERD Metabolic: Metabolic: None reported Musc/skel: Musc/skel: OA/DJD Neuropsych: Neuropsych: None reported Anesthetic Plan: ASA status: 3 Anesthesia: Regional (specify below) Other: SAB/adductor canal blk Risk of > 500 ml blood loss (7ml/kg in children): No PFSH Anesthesia PFSH: Medical History Acute cystitis with hematuria Acute kidney injury 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 Mother , GANGRENE IN STOMACH No problems noted. Social History Smoking and tobacco status: current some day smoker smokeless tobacco Alcohol intake: never Adopted: No Caregiver/support person: No Lives independently: No Household members: spouse Marital status: Current occupational status: retired Data Anesthesia Cardiac Studies: No Data to Display
[2020-06-20] VITALS (16 sets, daily range): BP systolic 98–136; BP diastolic 52–93; PULSE 48–67; RESP 13–20; TEMP 36.2–37; O2SAT 97–100
[2020-06-20 06:23] LABS: Glucose Point of Care 150 mg/dL (70-110)
[2020-06-20] MEDS: sodium chloride 0.9% 1,000 ML 30 ML IV (06:25)
[2020-06-20] MEDS: CELEcoxib 200 mg Capsule 400 MG PO (06:25)
[2020-06-20] MEDS: oxyCODONE 20 mg ER (12 HR) Tablet PO (06:25)
[2020-06-20] MEDS: acetaminophen 500 mg Tablet 1000 MG PO (06:26)
--- NOTE | 2020-06-20 06:57 | P.HP_ITS ---
Same Day Surgery H&P Indication for Procedure/HPI DATE OF PROCEDURE: June 20, 2020 CHIEF COMPLAINT/INDICATIONFOR SURGICAL PROCEDURE: Osteoarthritis left knee PREOP DIAGNOSIS: Osteoarthritis left knee PLANNED PROCEDRUE: Operation Date: 06/20/20 07:00 Proposed Procedures p Total Knee Arthroplasty 52905 M17.12(Left) - Priyank Sandoval MD Medications/Allergies* Home Medications Medication Instructions Recorded Confirmed Type acetaminophen 325 mg capsule 650 mg PO Q6H PRN 05/27/19 06/20/20 History glipizide 5 mg tablet 5 mg PO DAILY tab 05/27/19 06/20/20 History pantoprazole 20 mg tablet,delayed 20 mg PO BID 05/27/19 06/20/20 History release simvastatin 20 mg tablet 20 mg PO DAILY tab 05/27/19 06/20/20 History ferrous sulfate 325 mg (65 mg 325 mg PO BID 12/04/19 06/20/20 History iron) tablet ascorbic acid (vitamin C) 500 mg PO BID 02/23/20 06/20/20 History lisinopril 20 mg tablet 20 mg PO BID 02/23/20 06/20/20 History metoprolol tartrate 25 mg tablet 25 mg PO BID tab 02/23/20 06/20/20 History Allergies/Adverse Reactions Allergy/AdvReac Type Severity Reaction Status Date / Time No Known Allergies Allergy Verified 06/20/20 05:52 Current Medications: Generic Name Dose Route Start Last Admin Trade Name Freq PRN Reason Stop Dose Admin Sodium Chloride 1,000 mls @ 30 mls/hr 06/20/20 06:00 06/20/20 06:25 Sodium Chloride 0.9% IV 06/21/20 05:59 30 mls/hr .Q24H MALDONADO Administration Pertinent History/Comorbid Conditions* Medical History (Updated 04/28/20 @ 10:52 by Naa Campoverde APRN) Acute cystitis with hematuria Acute kidney injury BPH with obstruction/lower urinary tract symptoms Chronic cystitis Detrusor dysfunction Hyperlipidemia Hypertension Incomplete bladder emptying Osteoarthritis of knees, bilateral Perforated duodenal ulcer Prostate cancer Urinary retention UTI (urinary tract infection) Surgical History (Updated 02/02/20 @ 07:22 by Dixon Ge MD) Perforated duodenal ulcer Repaired duodenal bulb perforation 12/2018 S/P bilateral cataract extraction S/P TURP Family History Father, ULCERATED STOMACH Mother, GANGRENE IN STOMACH Social History Smoking and tobacco status: current some day smoker smokeless tobacco Alcohol intake: never Adopted: No Caregiver/support person: No Lives independently: No Household members: spouse Marital status: Current occupational status: retired Pertinent Exam Findings alert, oriented x 3, clear to auscultation bilaterally, regular rate & rhythm and operative site marked Recommendations Surgery/Procedure today Coding Level of Care Code Acute [employer] Supervisor for Griffin Munson
--- NOTE | 2020-06-20 07:23 | P.ANESUD_ITS ---
Pre-Anesthetic Update Pre-Anesthetic Assessment: Date of Surgery/Procedure: 06/20/20 Preop Isaura gnosis: Osteoarthritis left knee Proposed Procedure: Operation Date: 06/20/20 07:00 Proposed Procedures p Total Knee Arthroplasty 49106 M17.12(Left) - Priyank Sandoval MD Any changes to Pre-Anesthetic Assessment?: No Last Intake: Intake Last Liquid Date 06/19/20 Last Liquid Time 18:00 Last Solid Date 06/19/20 Last Solid Time 18:00 Labs Last 48hrs: Laboratory Results - last 48 hr 06/20/20 06:20 POC Glucose 150 H Vitals: Temperature 97.8 F 06/20/20 05:59 Pulse Rate 61 06/20/20 05:59 Pulse Rhythm 06/20/20 06:14 Pulse Strength 3+ Normal 06/20/20 06:14 Respiratory Rate 18 06/20/20 05:59 Blood Pressure 136/93 06/20/20 05:59 Blood Pressure Tamra n 107 06/20/20 05:59 Pulse Oximetry 99 06/20/20 05:59 Oxygen Delivery Me thod 06/20/20 06:14 Exam: Pre-Anes Outpt Exam: alert, oriented x 3, clear to auscultation bilaterally and regular rate & rhythm Cardiac Studies: No Data to Display
--- NOTE | 2020-06-20 07:24 | ANES.PROC ---
Anesthesia Procedures Procedure/Date: 06/20/20 Nerve Block ^: Nerve Block 1: Main Anesthesia: spinal anesthesia block Time Out Performed: Yes Consent: requested by attending/covering physician, from patient, risks and benefits reviewed and patient agrees to proceed Nerve block location: adductor canal (left) Anesthesia monitors applied: pulse oximetry, EKG, BP cuff and oxygen Nerve block position: supine Anesthetic Used: ropivicaine 0.5% Amount of anesthesia used (mL): 20 Ultrasound used to: recognize landmarks Nerve Stimulator Used?: No Interscalene/Femoral BLK: 4 stimuplex 21 g needle used for position and inplane approach Injection: neg aspiration of heme Patient Tolerated Procedure: well Complications: none
[2020-06-20] MEDS: tranexamic acid 1,000 mg/10mL SDV 2000 MG (07:30)
[2020-06-20] MEDS: ketorolac 30 mg/mL INJ (07:51)
[2020-06-20] MEDS: EPINEPHrine 1 mg/mL INJ (07:52)
--- NOTE | 2020-06-20 08:50 | P.OP_ITS ---
Operative Report Date of procedure: June 20, 2020 Pre-op Diagnosis: Osteoarthritis left knee Post-op diagnosis: same Post-op Findings: Patient had severe eburnation and wear in the medial compartment with varus deformity and medial tibial bone loss. His lateral compartment was spared and he had only mild wear beneath the patella Procedure Done: Left total knee Pathology: none sent Surgeon: Priyank Sandoval Anesthesia: Nerve Block (Spinal, adductor canal) Estimated blood loss (mL): 100 Findings: Patient had severe eburnation and wear in the medial compartment with varus deformity and medial tibial bone loss. His lateral compartment was spared and he had only mild wear beneath the patella Condition: stable Disposition: PACU Procedure: The patient was taken to the operating room. Patient was given 1 g of tranexamic acid . The above anesthesia provided by the anesthesia service. A timeout was performed. The patient was prepped and draped in the usual fashion with the lower extremity exposed. A anterior incision was made, midline, from a point proximal to the patella to the distal tibial tubercle. The knee was entered through a medial parapatellar approach. The patella could be displaced laterally and the knee flexed. The patellar fat pad was resected to provide better visibility. Retractors were placed medially and laterally adjacent to the tibial plateau. The femoral canal was drilled in line with the longitudinal axis of the femur. Intramedullary femoral guide for used to make a distal femoral cut in 5 degrees of valgus, resecting 8 mm from the more prominent condyle. Next the extra medullary tibial guide was placed in alignment with the longitudinal axis of the tibia. The cutting guides were set to remove just over 2 mm from the lower resected medial tibial plateau. The proximal tibia was then cut. The femoral measuring guide was then placed over the distal femur. Rotation was verified checking the relationship of the guide to the condyle and the trochlear groove. The femur was measured and cut for the desired femoral component. The desired tibial baseplate was then chosen. A trial reduction with the femur tibial baseplate and polyethylene was done, assuring that the knee was stable throughout full motion. Ligament balancing involve nothing more than a release of the deep medial collateral ligaments and removal of medial osteophytes.The tibia was prepared for the tibial baseplate. Patellar surfaces were inspected with no exposed subchondral bone. Peripheral osteophytes were removed with a rongeur. The knee was brought through a range of motion with trial components the patella seemed to track normally. There was good posterior stability but was some slight anterior translation decision was made to proceed with a more restrained cruciate sparing tibial bearing insert. Decision was made not to proceed with patellar resurfacing all surfaces were cleaned with pulsatile lavage. The femur tibia were press-fit into place. The posterior capsule and collateral ligaments were then injected with a solution of 100 mL of 0.2% ropivacaine, 1 mL of a 1:1000 epinephrine solution, and 30 mg of Toradol. Final polyethylene component was then snapped into place into the tibia. 2 grams of tranexamic acid were applied to the wound. The tourniquet was deflated. The tranxanemic acid was left contact with the knee for 5 minutes before the knee was irrigated with saline. The extensor retinaculum was closed with a running 1 Stratafix.. The subcutaneous tissues were closed with 2-0 Vicryl and the skin was closed with a running 3-0 Stratafix. The wound was covered with a Dermabond Prinio dressing. It was covered with 4xrs and a compressive Tubigauae was applied. The patient was taken to recovery room in stable condition. [employer] total knee arthroplasty components were used includin) Size 4 triathalon cruciate retaining femoral component 2) Size 3 Tritanium tibial component 3) Size 3/16 mm thickness CS tibial bearing insert
--- NOTE | 2020-06-20 09:18 | XRR_ITS ---
PROCEDURE INFORMATION: Exam: XR Left Knee Exam date and time: 06/20/2020 9:32 AM Age: 84 years old Clinical indication: Condition or disease; Joint replacement status; Knee; Left; Prior surgery; Additional info: Left total knee arthroplasty TECHNIQUE: Imaging protocol: XR Left knee. Views: 1 or 2 views. COMPARISON: CR Knees Bilat [place] view [id number] 06/30/2019 10:59 AM FINDINGS: Bones/joints: The patient has undergone recent insertion of a total knee prosthesis. Gas is present in the joint space from the recent surgery. No fractures are seen. The position and alignment is satisfactory. Soft tissues: Prominent atherosclerotic calcifications are present.. XR/XR knee LT 1-2V [id number] IMPRESSION: Satisfactory appearance of the recently placed total knee prosthesis.
--- NOTE | 2020-06-20 09:43 | ANE.PACU2 ---
Inpatient post-anesthesia follow up: Airway intact: Yes Vital signs: Temperature 98.3 F Pulse Rate 54 Respiratory Rate 14 Blood Pressure 127/59 Pulse Oximetry 100 Oxygen Delivery Me thod Nasal Cannula Oxygen Flow Rate 2 Fraction of Inspir ed Oxygen Hydration adequate: Yes Nausea and vomiting: No Pain level: 1 Mental status: Baseline
[2020-06-20 10:59] LABS: Glucose Point of Care 168 mg/dL (70-110)
[2020-06-20] MEDS: ciprofloxacin 500 mg Tablet PO ×2 (10:59→17:42)
[2020-06-20] MEDS: sennosides-docusate Tablet 2 TAB PO ×2 (10:59→17:42)
[2020-06-20] MEDS: ferrous sulfate EC 325 mg Tablet PO ×2 (10:59→17:41)
[2020-06-20] MEDS: gabapentin 300 mg Capsule PO ×2 (10:59→17:41)
[2020-06-20] MEDS: pantoprazole DR 40 mg Tablet PO ×2 (10:59→17:42)
[2020-06-20] MEDS: aspirin 325 mg EC Tablet PO (10:59)
[2020-06-20] MEDS: atorvastatin 40 mg Tablet 20 MG PO (10:59)
[2020-06-20] MEDS: mupirocin oint 22 gm 1 APPLIC TOPICAL ×2 (11:00→17:42)
[2020-06-20] MEDS: sodium chloride 0.9% 1,000 ML 75 ML IV (11:00)
[2020-06-20] MEDS: tamsulosin 0.4 mg Capsule PO (11:00)
[2020-06-20] MEDS: folic acid 1 mg Tablet PO (11:00)
[2020-06-20] MEDS: oxyCODONE 5 mg IR Tab/Cap PO (14:29)
[2020-06-20 17:02] LABS: Glucose Point of Care 145 mg/dL (70-110)
[2020-06-20] MEDS: CELEcoxib 200 mg Capsule PO (17:41)
[2020-06-20] MEDS: lisinopril 20 mg Tablet PO (17:42)
[2020-06-20 21:31] LABS: Glucose Point of Care 132 mg/dL (70-110)
[2020-06-21 00:10] VITALS: BP 103/58; PULSE 63; RESP 18; TEMP 36.8; O2SAT 97
[2020-06-21 04:19] VITALS: BP 105/55; PULSE 70; RESP 18; TEMP 37.1; O2SAT 96
[2020-06-21 05:37] LABS: Hemoglobin 9.5 g/dL (11.7-16.6)
[2020-06-21] MEDS: CELEcoxib 200 mg Capsule PO (05:43)
[2020-06-21 06:31] LABS: Glucose Point of Care 148 mg/dL (70-110)
[2020-06-21 07:33] VITALS: BP 131/72; PULSE 71; RESP 17; TEMP 36.7; O2SAT 98
[2020-06-21 08:03] VITALS: BP 131/72; PULSE 71; RESP 17; TEMP 36.7; O2SAT 98
--- NOTE | 2020-06-21 08:08 | P.DS_ITS ---
Discharge Providers Date of Admission: 06/20/20 09:28 Date of Discharge: June 21, 2020 Attending Provider at Admission: Priyank Sandoval MD Attending Provider at Discharge: Priyank Sandoval MD Primary Care Provider: Sergio Sandoval MD Diagnoses at Discharge Discharge Diagnosis (1) Status post left knee replacement: Status: Acute (2) Osteoarthritis of left knee: Status: Resolved Reason for Visit Reason for Visit: total knee arthoplasty 49583 M17.12 Hospital Course Hospital Course The patient was admitted after an elective left total knee arthroplasty. Postoperatively he did very well. He had little pain. His blood sugars were controlled with a sliding dose insulin until his oral hypoglycemics could be resumed. He made excellent progress with therapy. He was managed with aspirin and sequential compression dressings for DVT prophylaxis. He was discharged home on the first postoperative day. Physical Exam Narrative: EXAM NARRATIVE: On the day of discharge his knee incision was clean. They had no drainage. There is minimal swelling in the thigh and knee and the calf. No distal neurovascular deficits were noted Urinary Catheter Management^: Sadler: Cath Placed During This Visit: yes Urinary Catheter Date of Insertion: 06/20/20 Urinary Catheter Time of Insertion: 07:25 Discharge Data Data Completed and Pending: Completed Studies During Hospitalization Category Date Time Status XR knee LT 1-2V 7 3560 Routine Exams 06/20/20 09:18 Completed Labs from last 24 hours 06/21/20 06/21/20 06/20/20 06:16 05:16 20:21 Hgb 9.5 L POC Glucose 148 H 132 H 06/20/20 06/20/20 16:54 10:55 Hgb POC Glucose 145 H 168 H Vitals: Last Vital Signs Temp 98.0 F 06/21/20 07:33 Pulse 71 06/21/20 07:33 Resp 17 06/21/20 07:33 BP 131/72 06/21/20 07:33 Pulse Ox 98 06/21/20 07:33 Discharge Plan Discharge Patient Disposition: Home Condition: Stable Prescriptions: New oxycodone 5 mg Tablet 5 mg PO Q3H PRN (Reason: Moderate Pain) 7 Days Qty: 30 RF: 0 aspirin 325 mg Tablet,Delayed Release (Dr/Ec) 325 mg PO DAILY 30 Days Qty: 30 RF: 0 celecoxib 200 mg Capsule 200 mg PO Q12H 15 Days Qty: 30 RF: 0 Continued ferrous sulfate [Feosol] 325 mg (65 mg iron) tablet 325 mg PO BID RF: 0 pantoprazole 20 mg tablet,delayed release (DR/EC) 20 mg PO BID RF: 0 acetaminophen [Tylenol] 325 mg capsule 650 mg PO Q6H PRN (Reason: Analgesia) RF: 0 simvastatin 20 mg tablet 20 mg PO DAILY RF: 0 glipizide 5 mg tablet 5 mg PO DAILY RF: 0 metoprolol tartrate 25 mg tablet 25 mg PO BID RF: 0 ascorbic acid (vitamin C) 500 mg PO BID RF: 0 lisinopril 20 mg tablet 20 mg PO BID RF: 0 tamsulosin 0.4 mg capsule 0.4 mg PO DAILY Qty: 90 RF: 3 methenamine hippurate 1 gram tablet 1 g PO BID Qty: 180 RF: 3 ciprofloxacin HCl 500 mg tablet 500 mg PO BID Qty: 20 RF: 0 folic acid 1 mg Tablet 1 mg PO DAILY Qty: 30 RF: 0 Discontinued mupirocin 2 % ointment 1 applic topical BID Qty: 22 RF: 0 Discharge Orders: Discharge Order (Routine); Ordered 06/21/20 Ordered By: Priyank Sandoval Other Ambulatory Orders: DME: Aníbal (Order) Location: None Selected Ordered By: Priyank Sandoval DME: Aníbal (Order) Location: None Selected Ordered By: Priyank Sandoval Referrals: Priyank Sandoval MD [Physician] - 2 weeks Discharge Diet: Advance as tolerated Discharge Activity: Limit activity as instructed Activity Restrictions/Additional Instructions: Okay to shower Keep Tubigauze sleeve in place for swelling. Okay to remove for hygiene. Apply FirstIce up to 20 min/hr for pain and swelling Take Celebrex twice a day for the next 15 days for pain , discontinue other anti-inflammatories Take Tylenol 325mg (up to 3 tabs) as needed 3 times a day for mild pain take oxycodone for breakthrough pain. Exercises per physical therapy. 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
[2020-06-21] MEDS: folic acid 1 mg Tablet PO (08:39)
[2020-06-21] MEDS: ferrous sulfate EC 325 mg Tablet PO (08:39)
[2020-06-21] MEDS: pantoprazole DR 40 mg Tablet PO (08:39)
[2020-06-21] MEDS: gabapentin 300 mg Capsule PO (08:39)
[2020-06-21] MEDS: lisinopril 20 mg Tablet PO (08:39)
[2020-06-21] MEDS: tamsulosin 0.4 mg Capsule PO (08:39)
[2020-06-21] MEDS: atorvastatin 40 mg Tablet 20 MG PO (08:40)
[2020-06-21] MEDS: aspirin 325 mg EC Tablet PO (08:41)
[2020-06-21] MEDS: sennosides-docusate Tablet 2 TAB PO (08:41)
[2020-06-21] MEDS: ciprofloxacin 500 mg Tablet PO (08:41)
[2020-06-21] MEDS: metoprolol tartrate 25 mg Tablet PO (08:48)
--- NOTE | 2020-06-21 10:05 | PC.CHAP ---
Pastoral Care Encounter/Spiritual Assessment Type of Contact [] Declined concrete inspector visit [] Patient/Family/Request visit [] Outpatient visit [] Follow-up visit [] Physician referral [] Code/Alert [x] Routine visit [] Staff referral [] Actively dying [] Patient sleeping [] Family support [] [] Out of room [] Palliative care [] [] Receiving care in room [] Pre-surgical visit [] Trauma [] Long length of stay [] ICU visit [] Other: Relational/Emotional Strength [x] Patient feels connected with others/family/visitors/staff [] Distress [] Loneliness/isolation [] Abandonment Spirituality of Patient [x] Person of Pita [] Attends Pentecostalism of their Pita [] Believes in Prayer [] Reads Bible or Lutheran materials [] There are Spiritual issues to be addressed Licensed 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 Interventions [x] Prayer [x] Active listening [] Non-anxious presence [] Spiritual/emotional support [] Crisis/trauma care [] Spiritual counseling [] Bereavement support [] Provided bereavement packet [] Provided Bible/devotional materials [] Provided toy/stuffed animal, coloring book to patient or family member [] Provided Communion [] Anointing/[place] [] Salvation [x] Completed spiritual assessment [] Other: Impact on Illness or Injury [] Angry [] Fearful [] Anxious [] Often cries [] Exhaustion [] Unable to work [] Unable to attend methodist [] Unable to walk/stand [] Unable to read [] Unable to drive [] Unable to eat/drink [] Unable to sleep [] Unable to be with family [] Patient intubated [] Other: Summary feeling good ready to go home Time spent with patient 10 min
[2020-06-21 11:47] LABS: Glucose Point of Care 126 mg/dL (70-110)
[2020-06-21 12:12] VITALS: BP 131/72; PULSE 71; RESP 17; TEMP 36.7; O2SAT 98
== END 2020-06-21 12:13 | disposition home or self-care (01) ==
LOC: MEDSURG 09:28
PROVIDERS: Admitting Provider Orthopaedic Surgery; PCP Family Medicine; Visit Provider Orthopaedic Surgery
PROC: (CPT 27447; principal; 2020-06-20 07:00)
DX: M17.12 Unilateral primary osteoarthritis, left knee (principal); R26.81 Unsteadiness on feet; I25.10 Atherosclerotic heart disease of native coronary artery without angina pectoris; I10 Essential (primary) hypertension; I25.2 Old myocardial infarction; K21.9 Gastro-esophageal reflux disease without esophagitis; N40.1 Benign prostatic hyperplasia with lower urinary tract symptoms; N13.8 Other obstructive and reflux uropathy; Z85.46 Personal history of malignant neoplasm of prostate; F17.290 Nicotine dependence, other tobacco product, uncomplicated
CPT/HCPCS: 27447; 12345; 36415; 36416; 51702; 64447; 73560; 82962; 85018; 96361; 96365; 96372; 97110; 97116; 97161; 97165; 97530; C1776; G0378; J0171; J0690; J1580; J1815; J1885; J2250; J2370; J2704; J2795; J7030

== ENCOUNTER 2020-07-18 06:48 | Outpatient (CLI) | payer MEDICARE, OTHER, SELFPAY ==
[2020-07-18] VITALS (9 sets, daily range): BP systolic 129–155; BP diastolic 65–84; PULSE 59–66; RESP 16–18; TEMP 36.7; O2SAT 98–100; BMI 22.6
[2020-07-18 07:20] LABS: Basophils # 0.1 10^3/uL (0.0-0.1); Eosinophils # 0.2 10^3/uL (0.0-0.8); Eosinophils % 2.9 %; Hematocrit 33.6 % (42.0-52.0); Hemoglobin 10.4 g/dL (11.7-16.6); Lymphocytes # 1.6 10^3/uL (0.8-4.8); Lymphocytes % 23.2 %; Mean Corpuscular Volume 100.3 fL (80-94); Mean Platelet Volume 8.9 fL (7.4-10.4); Monocytes # 0.5 10^3/uL (0.2-0.9); Monocytes % 6.9 %; Neutrophils % 65.7 %; Nucleated Red Blood Cells % 0 %; Platelet Count 181 10^3/cmm (130-400); Red Blood Count 3.35 10^6/uL (4.1-5.3); Red Cell Distribution Width 13.6 % (12.1-15.1)
[2020-07-18 07:51] LABS: INR 1.14 (0.8-1.2)
--- NOTE | 2020-07-18 08:00 | US_ITS ---
WS: [id number] ULTRASOUND GUIDED LIVER BIOPSY CLINICAL INFORMATION: RIGHT HEPATIC LESION FOR BIOPSY TECHNIQUE: The procedure including risks, benefits, and complications were discussed with the patient who agreed to proceed. Using sterile technique, patient was prepped and draped in the usual sterile fashion. A timeout was performed. After 1% lidocaine using ultrasound guidance, the heterogeneous right hepatic lesion was localized. [id number] core samples were obtained using an 18-gauge biopsy device. No imm ediate complications. US/US biopsy liver [id number] IMPRESSION: Uncomplicated right hepatic mass ultrasound-guided biopsy.
[2020-07-18] MEDS: fentaNYL 50 mcg/mL INJ 2mL 25 MCG IVP (08:45)
[2020-07-18] MEDS: midazolam 1 mg/mL INJ 2 mL IVP (08:48)
--- NOTE | 2020-07-18 13:00 | PC.NURSE ---
Per pharmacy, due to emergent cases causing late documentation, I will document wasting 1 mg of versed and 75 mcg of fentanyl . Witnessed by Melyssa Garcia RN.
== END 2020-07-18 10:45 | disposition home or self-care (01) ==
PROVIDERS: Radiology Neuroradiology; PCP Family Medicine; Visit Provider Internal Medicine Hematology & Oncology
DX: K76.9 Liver disease, unspecified (principal); R16.0 Hepatomegaly, not elsewhere classified
CPT/HCPCS: 47000; 76942; 85025; 85610; 88307; J2250; J3010

== ENCOUNTER 2020-07-25 13:19 | Outpatient (CLI) | payer MEDICARE, OTHER, SELFPAY ==
[2020-07-25 14:06] LABS: Basophils # 0.1 10^3/uL (0.0-0.1); Basophils % 0.7 %; Eosinophils # 0.1 10^3/uL (0.0-0.8); Eosinophils % 1.6 %; Hematocrit 35.4 % (42.0-52.0); Hemoglobin 11.1 g/dL (11.7-16.6); Lymphocytes % 27.2 %; Mean Corpuscular HGB Conc 31.4 g/dL (30.0-36.0); Mean Corpuscular Hemoglobin 31.4 pg (28.0-34.0); Mean Corpuscular Volume 100.3 fL (80-94); Mean Platelet Volume 9.5 fL (7.4-10.4); Monocytes # 0.5 10^3/uL (0.2-0.9); Monocytes % 6.7 %; Neutrophils # 4.62 10^3/uL (1.8-7.7); Neutrophils % 63.5 %; Nucleated Red Blood Cells % 0 %; Platelet Count 185 10^3/cmm (130-400); Red Blood Count 3.53 10^6/uL (4.1-5.3); Red Cell Distribution Width 13.8 % (12.1-15.1); White Blood Count 7.3 10^3/uL (4.0-10.0)
[2020-07-25 14:49] LABS: Prostate Specific Antigen 0.045 ng/mL (0-4)
[2020-07-25 15:02] LABS: Alanine Aminotransferase 8 U/L (0-41); Albumin Level 4.2 g/dL (3.5-5.2); Alkaline Phosphatase 133 IU/L (40-130); Anion Gap 14.1 (5-19); Aspartate Amino Transferase 12 U/L (0-40); Blood Urea Nitrogen 29 mg/dL (8-23); Carbon Dioxide 22 mmol/L (22-29); Chloride 106 mmol/L (98-107); Globulin 3.3 g/dL (1.3-4.6); Glucose 142 mg/dL (65-115); Osmolality Calculated 294 mOsm/kg (285-295); Potassium 4.1 mmol/L (3.5-5.1); Sodium 138 mmol/L (136-145); Total Bilirubin 0.4 mg/dL (0.15-1.2); Total Protein 7.5 g/dL (6.6-8.7)
--- NOTE | 2020-07-25 15:55 | ONC FU_ITS ---
Dr. Foss follow up note Patient: Aung Lizarraga Unit #: [id number]: [id number] Dicatated By: Betty Foss M.D.Date of Visit:Jul 25, 2020 Onc Med Follow-up/Prog Note History of Present Illness: Mr. Lizarraga is an 84-year-old gentleman with a complex medical history including diabetes mellitus type 2, hyperlipidemia, chronic renal disease, palpitations (EKG showed first-degree AV block, RBBB, LAFB); left knee osteoarthritis, knee replacement is under consideration and history of benign prostate hypertrophy. He underwent TURP on July 26, 2016 which confirmed benign prostatic hyperplasia. 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 He underwent cystoscopy in June 2016 showed severe trabeculation. Renal ultrasound done in April 2019 showed bilateral hydronephrosis, cystoscopy done in April 2019 revealed some adenomatous regrowth in the distal prostatic fossa. Mr Lizarraga continues to follow with urology for chronic urinary retention managed with CIC and bacteriuria on antibiotic. He is taking Bactrim DS 1/2 tablet twice a day for UTI suppression. On February 01, 2020, Mr Lizarraga went to the emergency room with hypotension, generalized weakness and fatigue, diarrhea for 1 week duration. He was diagnosed with C. difficile and sepsis. He was treated with broad-spectrum antibiotic. He also underwent CT scan of abdomen pelvis on February 01, 2020 which showed 2.2 cm hypodense mass in the right liver and multifocal new subcentimeter nodules were also identified in bilateral lung bases. 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 As per pathology note histology and immunohistochemistry stains favor prostatic primary with metastasis to the liver. Patient denies alcohol use but uses smokeless tobacco. Started on Zoladex every 3 months on March 23, 2020 along with daily Casodex Follow-up CT scan of chest abdomen pelvis done on June 15, 2020 showed innumerable subcentimeter noncalcified nodules throughout both lungs most consistent with metastatic disease largest is about 8 mm. Lung bases are similar in appearance to CT scan of abdomen pelvis done on February 01, 2020. No mediastinal or hilar lymphadenopathy Numerous peripherally enhancing metastatic lesion throughout both hepatic lobes significantly progressed compared to previous. Largest lesion right hepatic lobe measuring 5.3 x 3.9 cm, has progressed compared to prior CT scan done on February 01, 2020 No adenopathy in abdomen or pelvis. Enlarged prostate with 6.1 cm with evidence of bladder outlet obstruction. Underwent CT-guided liver biopsy on July 18, 2020 which confirmed metastatic foamy gland variant adenocarcinoma, most suggestive of prostatic primary Came for follow-up, denies any specific complaints except occasionally discomfort in right upper quadrant otherwise no jaundice no fever chills, no nausea or vomiting, no diarrhea constipation, no new bony pains patient had left knee replacement done month ago and tolerated procedure well now healing well., Tolerating Zoladex well otherwise Medications: Acetaminophen 1 Tablet (of 325 mg) Oral daily, Aspirin 1 Tablet (of 81 mg) Tablet, enteric coated Oral daily, Cyanocobalamin 1 Capsule (of 1000 mcg) Oral daily, Ferrous Sulfate 1 Tablet (of 325 (65 fe) mg) Oral b.i.d., Folic Acid 1 Tablet (of 1 mg) Oral daily, glipiZIDE 1 Tablet (of 5 mg) Oral daily, Lisinopril 1 Tablet (of 20 mg) Oral daily, Metoprolol Tartrate 1 Tablet (of 25 mg) Oral b.i.d., Pantoprazole Sodium 1 Tablet (of 20 mg) Tablet, enteric coated Oral daily, Simvastatin 1 Tablet (of 20 mg) Oral daily, Tamsulosin HCl 1 Capsule (of 0.4 mg) Oral daily, Tamsulosin HCl 1 Tablet (of 0.4 mg) Capsule Oral daily Allergies: No Known Allergies. Review of Systems: Review of Systems is not available for this patient. Vital Signs: Performed on Jul 25, 2020 15:15 Height - 66.00 in Weight - 145 lbs (LOW) BSA - 1.74 sq.m BMI - 23.40 Temperature - 98.8 F Pulse - 77 /min Respiration - 18 /min BP - 135/62 mm(hg) O2 Sat - 99 % Pain - 0 Fatigue - 0 Performance Status: 1 - No physically strenuous activity, but ambulatory and able to carry out light or sedentary work (e.g. office work, light house work). (ECOG) Physical Examination: ENMT - No mouth sores, no thrush, no jaundice, Respiratory - Lungs are clear to auscultation, Cardiovascular - Regular rate and rhythm of heart, Abdomen - Soft, bowel sounds present, Extremities - Status post left knee replacement, well-healed surgical scar, no visible edema. Lab/Imaging: Test performed on Jun 15, 2020 09:55 Sodium 139 mmol/L Potassium 4.6 mmol/L Chloride 106 mmol/L CO2 21 mmol/L Anion Gap 16.6 BUN 35 mg/dL Creatinine 1.6 mg/dL Cr Clearance (Est) 32.46 mL/min Glucose 143 mg/dL Osmolality - Calculated 298 mOsm/kg Calcium 9.6 mg/dL Protein, Total 7.8 g/dL Albumin 4.4 g/dL Globulin 3.4 g/dL Bilirubin, Total 0.4 mg/dL ALT (SGPT) 11 U/L AST (SGOT) 14 U/L Alkaline Phosphatase 111 IU/L WBC 6.5 10 3/uL RBC 3.89 10 6/uL HGB 12.2 g/dL HCT 38.2 % MCV 98.2 fL MCH 31.4 pg MCHC 31.9 g/dL RDW 12.8 % Platelet Count 213 10 3/cmm MPV 9.4 fL Neutrophils 3.88 10 3/uL Lymphocytes 1.8 10 3/uL Monocytes 0.6 10 3/uL Eosinophils 0.1 10 3/uL Basophils 0.1 10 3/uL Neutrophil % 60.0 % Lymphocyte % 28.0 % Monocyte % 8.7 % Eosinophil % 1.9 % Basophils % 1.1 % NRBC % 0 % PSA 0.089 ng/mL Test performed on Apr 20, 2020 09:05 Ferritin 235 ng/mL Folate, Serum > 20.0 ng/mL Iron 75 mcg/dL Testosterone, Total 4.5 ng/dL Iron Binding Capacity (TIBC) 215 mcg/dl % Iron Saturation 34.8 % UIBC 140 mcg/dL Test performed on Apr 20, 2020 08:52 Manual Diff DUPLICATE ORDER Impression: Metastatic prostate cancer per CT-guided liver biopsy done on February 29, 2020, Repeat liver biopsy done on July 18, 2020 because his PSA normalized with ADT e.g. went down to 0.089 from 1800 at the time of diagnosis but his follow-up CT scan of chest abdomen done on July 03, 2020 showed disease progression in the liver so there was a concern about second primary in the liver but repeat liver biopsy showed metastatic foamy gland ovarian adenocarcinoma, most suggestive of prostatic primary CT scan of abdomen pelvis done on February 01, 2020 showed hepatic lesion and bilateral lung bases subcentimeter nodules Chronic kidney injury, BPH/chronic urinary retention, now being managed with CIC and chronic bacteremia with Septra DS half tablet twice a day. Status post TURP in July 2016 biopsy confirmed benign prostatic hyperplasia. History of perforated duodenal ulcer Anemia, on oral iron supplement. discussed with Mr Lizarraga his disease status and liver biopsy report . The report confirmed, metastatic prostate cancer based on histology and immunohistochemistry stains. His CT scan of abdomen pelvis in January 2020 showed liver mets as well as bilateral lung bases. Mr Lizarraga is a elderly gentleman with multiple comorbid condition and compromised nutritional status and performance status. He has a history of recurrent urine tract infection and recent hospitalization with septicemia. reported that Mr Lizarraga may not be a candidate for systemic chemotherapy upfront, but rather try ADT with Zoladex/Casodex along with vitamin D and calcium supplement. Other option including orchiectomy but Mr Lizarraga preferred a trial of ADT with Zoladex/Casodex. requested a bone scan and CT scan of chest to assess the extent of disease. Follow-up CT scan of chest abdomen pelvis done on June 15, 2020 showed stable bilateral subcentimeter pulmonary nodules, disease progression in the liver and no abdominal, pelvic or mediastinal lymphadenopathy, PSA is down to 0.089 Casodex was discontinued on June 17, 2019 because of progressive generalized weakness and fatigue and excellent response with a PSA down to subzero as follow-up CT scan of chest abdomen pelvis shows disease progression liver, there was a concern whether patient may have second primary so liver biopsy was planned, along with a colonoscopy to rule out GI primary. Plan: , Discussed with patient regarding his pathology report from repeat liver biopsy Done recently as ,With normalization of PSA with Zoladex and Casodex e.g. 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 Discussed with pathologist and with the patient, at this point we will consider next generation sequencing to identify targetable mutation and cancer type ID and also check CEA and CA 19???9. Patient is a elderly gentleman has no significant symptoms from progressive disease in the liver, he will return to clinic in 1 month with CBC CMP PSA and CEA CA 19???9 and next edition sequencing and cancer type ID. Signed By: Betty Foss M.D. <<Signature on File>>
[2020-07-25 16:12] LABS: Carcinoembryonic Antigen 5.1 ng/mL (0.0-4.7)
[2020-07-25 17:40] LABS: Cancer Antigen 19 9 24.39 U/mL (0-35)
== END 2020-07-25 13:20 | disposition home or self-care (01) ==
LOC: ONCMED 13:23
PROVIDERS: PCP Family Medicine; Visit Provider Internal Medicine Hematology & Oncology
DX: C61 Malignant neoplasm of prostate (principal); C78.7 Secondary malignant neoplasm of liver and intrahepatic bile duct; C78.00 Secondary malignant neoplasm of unspecified lung; Z79.818 Long term (current) use of other agents affecting estrogen receptors and estrogen levels; Z79.899 Other long term (current) drug therapy
CPT/HCPCS: 80053; 82378; 84153; 85025; 86301; 99215

== ENCOUNTER → 2020-07-26 13:43 | Outpatient (BNVA) | payer MEDICARE, OTHER, SELFPAY | PROVIDERS: PCP Family Medicine; Visit Provider Orthopaedic Surgery | DX: Z47.1 Aftercare following joint replacement surgery (principal); Z96.652 Presence of left artificial knee joint | CPT/HCPCS: 73560; 73565 ==

== ENCOUNTER 2020-08-25 14:05 | Outpatient (CLI) | payer MEDICARE, OTHER, SELFPAY ==
[2020-08-25 15:10] LABS: Basophils % 0.6 %; Eosinophils # 0.1 10^3/uL (0.0-0.8); Eosinophils % 1.5 %; Hematocrit 35.2 % (42.0-52.0); Hemoglobin 11.1 g/dL (11.7-16.6); Lymphocytes # 2.4 10^3/uL (0.8-4.8); Lymphocytes % 35.4 %; Mean Corpuscular HGB Conc 31.5 g/dL (30.0-36.0); Mean Corpuscular Hemoglobin 31.6 pg (28.0-34.0); Mean Corpuscular Volume 100.3 fL (80-94); Mean Platelet Volume 9.4 fL (7.4-10.4); Monocytes # 0.5 10^3/uL (0.2-0.9); Monocytes % 7.2 %; Neutrophils # 3.77 10^3/uL (1.8-7.7); Nucleated Red Blood Cells % 0 %; Platelet Count 177 10^3/cmm (130-400); Red Blood Count 3.51 10^6/uL (4.1-5.3); Red Cell Distribution Width 13.4 % (12.1-15.1); White Blood Count 6.8 10^3/uL (4.0-10.0)
[2020-08-25 15:41] LABS: Prostate Specific Antigen 0.033 ng/mL (0-4)
[2020-08-25 15:52] LABS: Alanine Aminotransferase 10 U/L (0-41); Alkaline Phosphatase 100 IU/L (40-130); Aspartate Amino Transferase 16 U/L (0-40); Blood Urea Nitrogen 25 mg/dL (8-23); Calcium 8.3 mg/dL (8.5-10.5); Carbon Dioxide 23 mmol/L (22-29); Chloride 109 mmol/L (98-107); Globulin 2.6 g/dL (1.3-4.6); Glucose 108 mg/dL (65-115); Osmolality Calculated 301 mOsm/kg (285-295); Sodium 143 mmol/L (136-145); Total Bilirubin 0.3 mg/dL (0.15-1.2); Total Protein 6.6 g/dL (6.6-8.7)
[2020-08-25 15:54] LABS: Anion Gap 15.1 (5-19); Potassium 4.1 mmol/L (3.5-5.1)
--- NOTE | 2020-08-25 17:06 | ONC FU_ITS ---
Dr. Foss follow up note Patient: Aung Lizarraga Unit #: [id number]: 1935 Dicatated By: Betty Foss M.D.Date of Visit:Aug 25, 2020 Onc Med Follow-up/Prog Note History of Present Illness: Mr. Lizarraga is an 84-year-old gentleman with a complex medical history including diabetes mellitus type 2, hyperlipidemia, chronic renal disease, palpitations (EKG showed first-degree AV block, RBBB, LAFB); left knee osteoarthritis, knee replacement is under consideration and history of benign prostate hypertrophy. He underwent TURP on July 26, 2016 which confirmed benign prostatic hyperplasia. 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 He underwent cystoscopy in June 2016 showed severe trabeculation. Renal ultrasound done in April 2019 showed bilateral hydronephrosis, cystoscopy done in April 2019 revealed some adenomatous regrowth in the distal prostatic fossa. Mr Lizarraga continues to follow with urology for chronic urinary retention managed with CIC and bacteriuria on antibiotic. He is taking Bactrim DS 1/2 tablet twice a day for UTI suppression. On February 01, 2020, Mr Lizarraga went to the emergency room with hypotension, generalized weakness and fatigue, diarrhea for 1 week duration. He was diagnosed with C. difficile and sepsis. He was treated with broad-spectrum antibiotic. He also underwent CT scan of abdomen pelvis on February 01, 2020 which showed 2.2 cm hypodense mass in the right liver and multifocal new subcentimeter nodules were also identified in bilateral lung bases. 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 As per pathology note histology and immunohistochemistry stains favor prostatic primary with metastasis to the liver. Patient denies alcohol use but uses smokeless tobacco. Started on Zoladex every 3 months on March 23, 2020 along with daily Casodex Follow-up CT scan of chest abdomen pelvis done on June 15, 2020 showed innumerable subcentimeter noncalcified nodules throughout both lungs most consistent with metastatic disease largest is about 8 mm. Lung bases are similar in appearance to CT scan of abdomen pelvis done on February 01, 2020. No mediastinal or hilar lymphadenopathy Numerous peripherally enhancing metastatic lesion throughout both hepatic lobes significantly progressed compared to previous. Largest lesion right hepatic lobe measuring 5.3 x 3.9 cm, has progressed compared to prior CT scan done on February 01, 2020 No adenopathy in abdomen or pelvis. Enlarged prostate with 6.1 cm with evidence of bladder outlet obstruction. Underwent CT-guided liver biopsy on July 18, 2020 which confirmed metastatic foamy gland variant adenocarcinoma, most suggestive of prostatic primary Molecular profiling Reported on August 13, 2020 showed a TMPRSS2-ERG fusion, consistent with diagnosis of prostate cancer and also showed genomic DANIEL, eg ( high level of loss of heterozygosity) could be result of alteration in the genes for which FDA approved for PARP inhibitors, as highly elevated has been associated with response to PARP inhibitors., CA 19???9 was 24.35 and CEA was 5.1 and his PSA was 0.033 Came for follow-up, denies any specific complaints, very happy with the left knee replacement, no fever or chills, no nausea or vomiting, no diarrhea or constipation, no jaundice, no abdominal pain, overall maintaining good quality of life. Tolerating 3 monthly Zoladex along with daily Casodex well Medications: Acetaminophen 1 Tablet (of 325 mg) Oral daily, Aspirin 1 Tablet (of 81 mg) Tablet, enteric coated Oral daily, Cyanocobalamin 1 Capsule (of 1000 mcg) Oral daily, Ferrous Sulfate 1 Tablet (of 325 (65 fe) mg) Oral b.i.d., Folic Acid 1 Tablet (of 1 mg) Oral daily, glipiZIDE 1 Tablet (of 5 mg) Oral daily, Lisinopril 1 Tablet (of 20 mg) Oral daily, Metoprolol Tartrate 1 Tablet (of 25 mg) Oral b.i.d., Pantoprazole Sodium 1 Tablet (of 20 mg) Tablet, enteric coated Oral daily, Simvastatin 1 Tablet (of 20 mg) Oral daily, Tamsulosin HCl 1 Capsule (of 0.4 mg) Oral daily, Tamsulosin HCl 1 Tablet (of 0.4 mg) Capsule Oral daily Allergies: No Known Allergies. Review of Systems: Review of Systems is not available for this patient. Vital Signs: Performed on Aug 25, 2020 16:08 Height - 66.00 in Weight - 144.6 lbs (LOW) BSA - 1.74 sq.m BMI - 23.34 Temperature - 98.4 F Pulse - 66 /min Respiration - 16 /min BP - 131/66 mm(hg) O2 Sat - 99 % Pain - 0 Fatigue - 0 Performed on Aug 25, 2020 16:02 Height - 66.00 in Weight - 144.8 lbs (LOW) BSA - 1.74 sq.m BMI - 23.37 Temperature - 98.4 F Pulse - 84 /min Respiration - 18 /min BP - 139/67 mm(hg) O2 Sat - 98 % Pain - 0 Performance Status: 1 - No physically strenuous activity, but ambulatory and able to carry out light or sedentary work (e.g. office work, light house work). (ECOG) Physical Examination: ENMT - No mouth sores, no thrush, no jaundice, Respiratory - Lungs are clear to auscultation, Cardiovascular - Regular rate and rhythm of heart, Abdomen - Soft, bowel sounds present, Extremities - No visible edema. Lab/Imaging: Test performed on Jun 15, 2020 09:55 Sodium 139 mmol/L Potassium 4.6 mmol/L Chloride 106 mmol/L CO2 21 mmol/L Anion Gap 16.6 BUN 35 mg/dL Creatinine 1.6 mg/dL Cr Clearance (Est) 32.46 mL/min Glucose 143 mg/dL Osmolality - Calculated 298 mOsm/kg Calcium 9.6 mg/dL Protein, Total 7.8 g/dL Albumin 4.4 g/dL Globulin 3.4 g/dL Bilirubin, Total 0.4 mg/dL ALT (SGPT) 11 U/L AST (SGOT) 14 U/L Alkaline Phosphatase 111 IU/L WBC 6.5 10 3/uL RBC 3.89 10 6/uL HGB 12.2 g/dL HCT 38.2 % MCV 98.2 fL MCH 31.4 pg MCHC 31.9 g/dL RDW 12.8 % Platelet Count 213 10 3/cmm MPV 9.4 fL Neutrophils 3.88 10 3/uL Lymphocytes 1.8 10 3/uL Monocytes 0.6 10 3/uL Eosinophils 0.1 10 3/uL Basophils 0.1 10 3/uL Neutrophil % 60.0 % Lymphocyte % 28.0 % Monocyte % 8.7 % Eosinophil % 1.9 % Basophils % 1.1 % NRBC % 0 % PSA 0.089 ng/mL Test performed on Apr 20, 2020 09:05 Ferritin 235 ng/mL Folate, Serum > 20.0 ng/mL Iron 75 mcg/dL Testosterone, Total 4.5 ng/dL Iron Binding Capacity (TIBC) 215 mcg/dl % Iron Saturation 34.8 % UIBC 140 mcg/dL Test performed on Apr 20, 2020 08:52 Manual Diff DUPLICATE ORDER Impression: Metastatic prostate cancer per CT-guided liver biopsy done on February 29, 2020, Repeat liver biopsy done on July 18, 2020 because his PSA normalized with ADT e.g. went down to 0.089 from 1800 at the time of diagnosis but his follow-up CT scan of chest abdomen done on July 03, 2020 showed disease progression in the liver so there was a concern about second primary in the liver but repeat liver biopsy showed metastatic foamy gland ovarian adenocarcinoma, most suggestive of prostatic primary CT scan of abdomen pelvis done on February 01, 2020 showed hepatic lesion and bilateral lung bases subcentimeter nodules Chronic kidney injury, BPH/chronic urinary retention, now being managed with CIC and chronic bacteremia with Septra DS half tablet twice a day. Status post TURP in July 2016 biopsy confirmed benign prostatic hyperplasia. History of perforated duodenal ulcer Anemia, on oral iron supplement. discussed with Mr Lizarraga his disease status and liver biopsy report . The report confirmed, metastatic prostate cancer based on histology and immunohistochemistry stains. His CT scan of abdomen pelvis in January 2020 showed liver mets as well as bilateral lung bases. Mr Lizarraga is a elderly gentleman with multiple comorbid condition and compromised nutritional status and performance status. He has a history of recurrent urine tract infection and recent hospitalization with septicemia. reported that Mr Lizarraga may not be a candidate for systemic chemotherapy upfront, but rather try ADT with Zoladex/Casodex along with vitamin D and calcium supplement. Other option including orchiectomy but Mr Lizarraga preferred a trial of ADT with Zoladex/Casodex. requested a bone scan and CT scan of chest to assess the extent of disease. Follow-up CT scan of chest abdomen pelvis done on June 15, 2020 showed stable bilateral subcentimeter pulmonary nodules, disease progression in the liver and no abdominal, pelvic or mediastinal lymphadenopathy, PSA is down to 0.089 Casodex was discontinued on June 17, 2019 because of progressive generalized weakness and fatigue and excellent response with a PSA down to subzero as follow-up CT scan of chest abdomen pelvis shows disease progression liver, there was a concern whether patient may have second primary so liver biopsy was planned, along with a colonoscopy to rule out GI primary.Molecular profiling on liver biopsy sample reported on August 13, 2020 confirmed presence of TMPRSS2-ERG fusion, consistent with a diagnosis of prostate cancer, moreover CA 19???9 and CEA were within normal limits. And also showed genomic DANIEL e.g. high level of loss of heterozygosity, which could be result of alteration in these genes for which FDA approved PARP inhibitors, highly elevated has been associated with response to P ADELINE inhibitors Plan: Discussed with patient regarding his molecular profiling which confirmed prostate cancer as well as targetable alteration, e.g. genomic DANIEL, which is associated with response to P ADELINE inhibitors. His white blood count is 6.8 hemoglobin 11.1 hematocrit 35.2 platelets 177,000 CMP within normal limits and PSA 0.033 Clinically, patient is doing reasonably well surprisingly not symptomatic with extensive liver mets with foamy variant of prostate cancer which is aggressive form of the disease, at this point, based on molecular profiling, will consider starting him on P ADELINE inhibitor, olaparib, considering patient's age and overall performance status we will start him on 200 mg p.o. twice a day while continue with 3 monthly Zoladex. All the side effect possible benefits associate with olaparib including but not limited to nausea vomiting, diarrhea or constipation, bone marrow suppression, generalized weakness and fatigue, dizziness, lightheadedness were mentioned, further teaching will done by chemotherapy nurse and will obtain approval from his insurance prior to the treatment and then patient will return to clinic 1 week after olaparib is initiated, with CBC CMP Signed By: Betty Foss M.D. <<Signature on File>>
== END 2020-08-25 14:06 | disposition home or self-care (01) ==
LOC: ONCMED 14:09
PROVIDERS: PCP Family Medicine; Visit Provider Internal Medicine Hematology & Oncology
DX: C61 Malignant neoplasm of prostate (principal); C78.01 Secondary malignant neoplasm of right lung; C78.02 Secondary malignant neoplasm of left lung; C78.7 Secondary malignant neoplasm of liver and intrahepatic bile duct; N40.1 Benign prostatic hyperplasia with lower urinary tract symptoms; R33.9 Retention of urine, unspecified; D50.9 Iron deficiency anemia, unspecified; Z79.818 Long term (current) use of other agents affecting estrogen receptors and estrogen levels; Z79.899 Other long term (current) drug therapy; Z92.21 Personal history of antineoplastic chemotherapy
CPT/HCPCS: 36415; 80053; 84153; 85025; 99215

== ENCOUNTER 2020-12-02 08:17 | Outpatient (CLI) | payer MEDICARE, OTHER, SELFPAY ==
[2020-12-02 08:55] LABS: Basophils # 0.1 10^3/uL (0.0-0.1); Basophils % 0.9 %; Eosinophils # 0.1 10^3/uL (0.0-0.8); Eosinophils % 1.5 %; Hematocrit 36.5 % (42.0-52.0); Hemoglobin 11.3 g/dL (11.7-16.6); Lymphocytes # 1.7 10^3/uL (0.8-4.8); Lymphocytes % 24.4 %; Mean Corpuscular Hemoglobin 31.4 pg (28.0-34.0); Mean Corpuscular Volume 101.4 fL (80-94); Mean Platelet Volume 9.2 fL (7.4-10.4); Monocytes # 0.5 10^3/uL (0.2-0.9); Neutrophils # 4.46 10^3/uL (1.8-7.7); Neutrophils % 65.9 %; Nucleated Red Blood Cells % 0 %; Platelet Count 170 10^3/cmm (130-400); Red Cell Distribution Width 13.4 % (12.1-15.1); White Blood Count 6.8 10^3/uL (4.0-10.0)
[2020-12-02 09:21] LABS: Alanine Aminotransferase 9 U/L (0-41); Albumin Level 3.9 g/dL (3.5-5.2); Alkaline Phosphatase 91 IU/L (40-130); Anion Gap 15.4 (5-19); Aspartate Amino Transferase 14 U/L (0-40); Blood Urea Nitrogen 27 mg/dL (8-23); Calcium 8.4 mg/dL (8.5-10.5); Carbon Dioxide 21 mmol/L (22-29); Chloride 108 mmol/L (98-107); Globulin 2.7 g/dL (1.3-4.6); Glucose 158 mg/dL (65-115); Osmolality Calculated 298 mOsm/kg (285-295); Potassium 4.4 mmol/L (3.5-5.1); Sodium 140 mmol/L (136-145); Total Bilirubin 0.4 mg/dL (0.15-1.2); Total Protein 6.6 g/dL (6.6-8.7)
[2020-12-02] MEDS: lidocaine 1% INJ 20 mL INJECTION (11:05)
[2020-12-02] MEDS: goserelin acetate 10.8 mg Implant SUBCUT (11:18)
--- NOTE | 2020-12-02 13:07 | ONC FU_ITS ---
Dr. Foss follow up note Patient: Aung Lizarraga Unit #: [id number]: [id number] Dicatated By: Betty Foss M.D.Date of Visit:Dec 02, 2020 Onc Med Follow-up/Prog Note History of Present Illness: Mr. Lizarraga is an 84-year-old gentleman with a complex medical history including diabetes mellitus type 2, hyperlipidemia, chronic renal disease, palpitations (EKG showed first-degree AV block, RBBB, LAFB); left knee osteoarthritis, knee replacement is under consideration and history of benign prostate hypertrophy. He underwent TURP on July 26, 2016 which confirmed benign prostatic hyperplasia. 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 He underwent cystoscopy in June 2016 showed severe trabeculation. Renal ultrasound done in April 2019 showed bilateral hydronephrosis, cystoscopy done in April 2019 revealed some adenomatous regrowth in the distal prostatic fossa. Mr Lizarraga continues to follow with urology for chronic urinary retention managed with CIC and bacteriuria on antibiotic. He is taking Bactrim DS 1/2 tablet twice a day for UTI suppression. On February 01, 2020, Mr Lizarraga went to the emergency room with hypotension, generalized weakness and fatigue, diarrhea for 1 week duration. He was diagnosed with C. difficile and sepsis. He was treated with broad-spectrum antibiotic. He also underwent CT scan of abdomen pelvis on February 01, 2020 which showed 2.2 cm hypodense mass in the right liver and multifocal new subcentimeter nodules were also identified in bilateral lung bases. 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 As per pathology note histology and immunohistochemistry stains favor prostatic primary with metastasis to the liver. Patient denies alcohol use but uses smokeless tobacco. Started on Zoladex every 3 months on March 23, 2020 along with daily Casodex Follow-up CT scan of chest abdomen pelvis done on June 15, 2020 showed innumerable subcentimeter noncalcified nodules throughout both lungs most consistent with metastatic disease largest is about 8 mm. Lung bases are similar in appearance to CT scan of abdomen pelvis done on February 01, 2020. No mediastinal or hilar lymphadenopathy Numerous peripherally enhancing metastatic lesion throughout both hepatic lobes significantly progressed compared to previous. Largest lesion right hepatic lobe measuring 5.3 x 3.9 cm, has progressed compared to prior CT scan done on February 01, 2020 No adenopathy in abdomen or pelvis. Enlarged prostate with 6.1 cm with evidence of bladder outlet obstruction. Underwent CT-guided liver biopsy on July 18, 2020 which confirmed metastatic foamy gland variant adenocarcinoma, most suggestive of prostatic primary Molecular profiling Reported on August 13, 2020 showed a TMPRSS2-ERG fusion, consistent with diagnosis of prostate cancer and also showed genomic DANIEL, eg ( high level of loss of heterozygosity) could be result of alteration in the genes for which FDA approved for PARP inhibitors, as highly elevated has been associated with response to PARP inhibitors., CA 19???9 was 24.35 and CEA was 5.1 and his PSA was 0.033 Came for follow-up, denies any specific complaints, no fever chills, no nausea or vomiting, no diarrhea constipation, no new bony pains, no heart flashes, tolerating 3 monthly Zoladex, patient missed his appointment for 3 monthly Zoladex which was scheduled in September 2020 because of confusion regarding follow-up schedule. 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 but his insurance declined Medications: Acetaminophen 1 Tablet (of 325 mg) Oral daily, Aspirin 1 Tablet (of 81 mg) Tablet, enteric coated Oral daily, Cyanocobalamin 1 Capsule (of 1000 mcg) Oral daily, Ferrous Sulfate 1 Tablet (of 325 (65 fe) mg) Oral b.i.d., Folic Acid 1 Tablet (of 1 mg) Oral daily, glipiZIDE 1 Tablet (of 5 mg) Oral daily, Lisinopril 1 Tablet (of 20 mg) Oral daily, Metoprolol Tartrate 1 Tablet (of 25 mg) Oral b.i.d., Pantoprazole Sodium 1 Tablet (of 20 mg) Tablet, enteric coated Oral daily, Simvastatin 1 Tablet (of 20 mg) Oral daily, Tamsulosin HCl 1 Capsule (of 0.4 mg) Oral daily, Tamsulosin HCl 1 Tablet (of 0.4 mg) Capsule Oral daily Allergies: No Known Allergies. Review of Systems: Review of Systems is not available for this patient. Vital Signs: Performed on Dec 02, 2020 10:00 Height - 66.00 in Weight - 140.6 lbs (LOW) BSA - 1.72 sq.m BMI - 22.69 Temperature - 98.1 F (LOW) Pulse - 61 /min Respiration - 18 /min BP - 115/63 mm(hg) O2 Sat - 98 % Pain - 0 Fatigue - 0 Performance Status: 0 - Fully active, able to carry on all predisease activities without restrictions. (ECOG) Physical Examination: ENMT - No mouth sores, no thrush, no jaundice, Respiratory - Lungs are clear to auscultation, Cardiovascular - Regular rate and rhythm of heart, Abdomen - Soft, bowel sounds present, Extremities - No visible edema or rash. Lab/Imaging: Test performed on Jun 15, 2020 09:55 Sodium 139 mmol/L Potassium 4.6 mmol/L Chloride 106 mmol/L CO2 21 mmol/L Anion Gap 16.6 BUN 35 mg/dL Creatinine 1.6 mg/dL Cr Clearance (Est) 32.46 mL/min Glucose 143 mg/dL Osmolality - Calculated 298 mOsm/kg Calcium 9.6 mg/dL Protein, Total 7.8 g/dL Albumin 4.4 g/dL Globulin 3.4 g/dL Bilirubin, Total 0.4 mg/dL ALT (SGPT) 11 U/L AST (SGOT) 14 U/L Alkaline Phosphatase 111 IU/L WBC 6.5 10 3/uL RBC 3.89 10 6/uL HGB 12.2 g/dL HCT 38.2 % MCV 98.2 fL MCH 31.4 pg MCHC 31.9 g/dL RDW 12.8 % Platelet Count 213 10 3/cmm MPV 9.4 fL Neutrophils 3.88 10 3/uL Lymphocytes 1.8 10 3/uL Monocytes 0.6 10 3/uL Eosinophils 0.1 10 3/uL Basophils 0.1 10 3/uL Neutrophil % 60.0 % Lymphocyte % 28.0 % Monocyte % 8.7 % Eosinophil % 1.9 % Basophils % 1.1 % NRBC % 0 % PSA 0.089 ng/mL Impression: Metastatic prostate cancer per CT-guided liver biopsy done on February 29, 2020, Repeat liver biopsy done on July 18, 2020 because his PSA normalized with ADT e.g. went down to 0.089 from 1800 at the time of diagnosis but his follow-up CT scan of chest abdomen done on July 03, 2020 showed disease progression in the liver so there was a concern about second primary in the liver but repeat liver biopsy showed metastatic foamy gland ovarian adenocarcinoma, most suggestive of prostatic primary CT scan of abdomen pelvis done on February 01, 2020 showed hepatic lesion and bilateral lung bases subcentimeter nodules Chronic kidney injury, BPH/chronic urinary retention, now being managed with CIC and chronic bacteremia with Septra DS half tablet twice a day. Status post TURP in July 2016 biopsy confirmed benign prostatic hyperplasia. History of perforated duodenal ulcer Anemia, on oral iron supplement. discussed with Mr Lizarraga his disease status and liver biopsy report . The report confirmed, metastatic prostate cancer based on histology and immunohistochemistry stains. His CT scan of abdomen pelvis in January 2020 showed liver mets as well as bilateral lung bases. Mr Lizarraga is a elderly gentleman with multiple comorbid condition and compromised nutritional status and performance status. He has a history of recurrent urine tract infection and recent hospitalization with septicemia. reported that Mr Lizarraga may not be a candidate for systemic chemotherapy upfront, but rather try ADT with Zoladex/Casodex along with vitamin D and calcium supplement. Other option including orchiectomy but Mr Lizarraga preferred a trial of ADT with Zoladex/Casodex. requested a bone scan and CT scan of chest to assess the extent of disease. Follow-up CT scan of chest abdomen pelvis done on June 15, 2020 showed stable bilateral subcentimeter pulmonary nodules, disease progression in the liver and no abdominal, pelvic or mediastinal lymphadenopathy, PSA is down to 0.089 Casodex was discontinued on June 17, 2019 because of progressive generalized weakness and fatigue and excellent response with a PSA down to subzero as follow-up CT scan of chest abdomen pelvis shows disease progression liver, there was a concern whether patient may have second primary so liver biopsy was planned, along with a colonoscopy to rule out GI primary.Molecular profiling on liver biopsy sample reported on August 13, 2020 confirmed presence of TMPRSS2-ERG fusion, consistent with a diagnosis of prostate cancer, moreover CA 19???9 and CEA were within normal limits. And also showed genomic DANIEL e.g. high level of loss of heterozygosity, which could be result of alteration in these genes for which FDA approved PARP inhibitors, highly elevated has been associated with response to P ADELINE inhibitors Plan: . Discussed with patient regarding his labs white blood count 6.8 hemoglobin 11.3 hematocrit 36.5 platelets 107,000 CMP within normal limit except creatinine 1.7, PSA is pending Clinically, patient is doing reasonably well with no new signs symptoms, tolerating 3 monthly Zoladex well but patient missed his last appointment because of confusion regarding follow-up so we will proceed with his next overdue 3 monthly Zoladex today and, as far as metastatic prostate carcinoma to the liver is concerned, patient was prescribed olaparib based on molecular profiling done in August 2020, which showed genomic DANIEL e.g. high level of loss of heterozygosity for which FDA has approved PARP inhibitors but his insurance has denied, in that case, will consider repeating CT scan of abdomen pelvis and chest x-ray to assess disease status and if there is a progression, we may consider systemic therapy with docetaxel or immunotherapy. Patient return to clinic after CT scan of abdomen pelvis and chest x-ray done for further discussion Signed By: Betty Foss M.D. <<Signature on File>>
[2020-12-02 13:10] LABS: Prostate Specific Antigen 0.051 ng/mL (0-4)
== END 2020-12-02 08:18 | disposition home or self-care (01) ==
LOC: ONCMED 08:20
PROVIDERS: PCP Family Medicine; Visit Provider Internal Medicine Hematology & Oncology
DX: Z51.11 Encounter for antineoplastic chemotherapy (principal); C61 Malignant neoplasm of prostate; C78.7 Secondary malignant neoplasm of liver and intrahepatic bile duct; C78.01 Secondary malignant neoplasm of right lung; C78.02 Secondary malignant neoplasm of left lung; N18.9 Chronic kidney disease, unspecified; N40.0 Benign prostatic hyperplasia without lower urinary tract symptoms; R33.9 Retention of urine, unspecified; Z87.11 Personal history of peptic ulcer disease; D64.9 Anemia, unspecified; Z79.899 Other long term (current) drug therapy
CPT/HCPCS: 36415; 80053; 84153; 85025; 96372; 96402; 99215; J9202

== ENCOUNTER 2020-12-12 11:15 | Outpatient (CLI) | payer MEDICARE, OTHER, SELFPAY ==
--- NOTE | 2020-12-12 11:20 | XR_ITS ---
WS: [id number] PA and lateral chest, 12/12/2020 Clinical Data: METASTATIC CARCINOMA Comparison: Portable chest, 02/01/2020. Findings: There are numerous noncalcified pulmonary nodules unchanged. No masses or effusions are see n. The heart is normal. No pneumonia or pneumothorax is seen. The pulmonary vascularity is not increa sed. The aortic arch shows calcification and tortuosity. There are old healed left lateral seventh an d eighth rib fractures. XR/XR chest 2V* [id number] Impression: 1. Numerous nodules throughout both lungs unchanged. 2. Atherosclerosis.
--- NOTE | 2020-12-12 11:21 | CT_ITS ---
WS: [id number] CT scan of the abdomen and pelvis with Oral and IV contrast. Additional two-dimensional coronal and s agittal reconstruction was performed. 12/12/2020 Clinical Data: PROSTATE CANCER, METASTATIC CANCER Comparison: CT chest abdomen and pelvis, 06/15/2020. DLP: 1110.[address] scans at [facility] use at least one of these dose optimization techniques: automat ed exposure control; mA and/or kV adjustment per patient size (includes targeted exams where dose is matched to clinical indication); or iterative reconstruction. Findings: There are numerous nodules throughout the lower lungs unchanged. The lower lungs show no masses or effusions. The liver demonstrates numerous metastatic lesions of mixed density. The largest in the lateral aspec t of the right lobe is 5.4 cm. The portal vein and splenic vein are normal. The gallbladder, spleen, adrenal glands and pancreas are normal. The kidneys show equal bilateral contrast excretion with small renal cortices. No renal masses, cysts , hydronephrosis or calculi are seen.. The abdominal aorta is normal in size with minimal calcification in the wall. No appendicitis or diverticulitis is seen. There are numerous sigmoid diverticula. Oral contrast is i n the stomach, small bowel and colon and there is no bowel dilatation. No abscess, adenopathy, ascite s, mass, obstruction or free air is seen. The bladder demonstrates a thickened wall. The prostate is enlarged.. No inguinal hernia is seen. The bones of the lower thorax, lumbar spine, pelvis, and hips show no bony metastatic lesions.. CT/CT abdomen pelvis w con* [id number] Impression: 1. Numerous nodules in the lower lobes consistent with metastatic disease unch anged. 2. Numerous metastatic lesions in the liver unchanged.
[2020-12-12] MEDS: iohexol 300 mg/mL 50 mL Btl PO (11:56)
[2020-12-12] MEDS: iodixanol 320 mg/mL 100mL Btl IV (13:17)
== END 2020-12-12 11:16 | disposition home or self-care (01) ==
PROVIDERS: PCP Family Medicine; Visit Provider Internal Medicine Hematology & Oncology
DX: C61 Malignant neoplasm of prostate (principal); R91.8 Other nonspecific abnormal finding of lung field; K76.9 Liver disease, unspecified
CPT/HCPCS: 71046; 74177; Q9967

== ENCOUNTER 2020-12-26 10:46 | Outpatient (CLI) | payer MEDICARE, OTHER, SELFPAY ==
[2020-12-26 11:29] LABS: Basophils # 0.1 10^3/uL (0.0-0.1); Eosinophils # 0.1 10^3/uL (0.0-0.8); Eosinophils % 2.2 %; Hematocrit 33.3 % (42.0-52.0); Hemoglobin 10.4 g/dL (11.7-16.6); Lymphocytes # 1.8 10^3/uL (0.8-4.8); Lymphocytes % 34.8 %; Mean Corpuscular HGB Conc 31.2 g/dL (30.0-36.0); Mean Corpuscular Hemoglobin 31.7 pg (28.0-34.0); Mean Corpuscular Volume 101.5 fl (80-94); Mean Platelet Volume 8.9 fL (7.4-10.4); Monocytes # 0.5 10^3/uL (0.2-0.9); Monocytes % 8.9 %; Neutrophils # 2.68 10^3/uL (1.8-7.7); Neutrophils % 52.9 %; Nucleated Red Blood Cells % 0 %; Platelet Count 160 10^3/cmm (130-400); Red Blood Count 3.28 10^6/uL (4.1-5.3); Red Cell Distribution Width 13.1 % (12.1-15.1); White Blood Count 5.1 10^3/uL (4.0-10.0)
[2020-12-26 12:02] LABS: Prostate Specific Antigen 0.061 ng/mL (0-4)
[2020-12-26 12:13] LABS: Alanine Aminotransferase 12 U/L (0-41); Albumin Level 3.8 g/dL (3.5-5.2); Alkaline Phosphatase 91 IU/L (40-130); Anion Gap 15.6 (5-19); Aspartate Amino Transferase 14 U/L (0-40); Blood Urea Nitrogen 30 mg/dL (8-23); Calcium 8.9 mg/dL (8.5-10.5); Carbon Dioxide 22 mmol/L (22-29); Chloride 110 mmol/L (98-107); Globulin 2.7 g/dL (1.3-4.6); Glucose 130 mg/dL (65-115); Osmolality Calculated 304 mOsm/kg (285-295); Potassium 4.6 mmol/L (3.5-5.1); Sodium 143 mmol/L (136-145); Total Bilirubin 0.3 mg/dL (0.15-1.2); Total Protein 6.5 g/dL (6.6-8.7)
--- NOTE | 2020-12-28 12:47 | ONC FU_ITS ---
Dr. Foss follow up note Patient: Aung Lizarraga Unit #: [id number]: 1935 Dicatated By: Betty Foss M.D.Date of Visit:Dec 26, 2020 Onc Med Follow-up/Prog Note History of Present Illness: Mr. Lizarraga is an 85-year-old gentleman with a complex medical history including diabetes mellitus type 2, hyperlipidemia, chronic renal disease, palpitations (EKG showed first-degree AV block, RBBB, LAFB); left knee osteoarthritis, knee replacement is under consideration and history of benign prostate hypertrophy. He underwent TURP on July 26, 2016 which confirmed benign prostatic hyperplasia. 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 He underwent cystoscopy in June 2016 showed severe trabeculation. Renal ultrasound done in April 2019 showed bilateral hydronephrosis, cystoscopy done in April 2019 revealed some adenomatous regrowth in the distal prostatic fossa. Mr Lizarraga continues to follow with urology for chronic urinary retention managed with CIC and bacteriuria on antibiotic. He is taking Bactrim DS 1/2 tablet twice a day for UTI suppression. On February 01, 2020, Mr Lizarraga went to the emergency room with hypotension, generalized weakness and fatigue, diarrhea for 1 week duration. He was diagnosed with C. difficile and sepsis. He was treated with broad-spectrum antibiotic. He also underwent CT scan of abdomen pelvis on February 01, 2020 which showed 2.2 cm hypodense mass in the right liver and multifocal new subcentimeter nodules were also identified in bilateral lung bases. 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 As per pathology note histology and immunohistochemistry stains favor prostatic primary with metastasis to the liver. Patient denies alcohol use but uses smokeless tobacco. Started on Zoladex every 3 months on March 23, 2020 along with daily Casodex Follow-up CT scan of chest abdomen pelvis done on June 15, 2020 showed innumerable subcentimeter noncalcified nodules throughout both lungs most consistent with metastatic disease largest is about 8 mm. Lung bases are similar in appearance to CT scan of abdomen pelvis done on February 01, 2020. No mediastinal or hilar lymphadenopathy Numerous peripherally enhancing metastatic lesion throughout both hepatic lobes significantly progressed compared to previous. Largest lesion right hepatic lobe measuring 5.3 x 3.9 cm, has progressed compared to prior CT scan done on February 01, 2020 No adenopathy in abdomen or pelvis. Enlarged prostate with 6.1 cm with evidence of bladder outlet obstruction. Underwent CT-guided liver biopsy on July 18, 2020 which confirmed metastatic foamy gland variant adenocarcinoma, most suggestive of prostatic primary Molecular profiling Reported on August 13, 2020 showed a TMPRSS2-ERG fusion, consistent with diagnosis of prostate cancer and also showed genomic DANIEL, eg ( high level of loss of heterozygosity) could be result of alteration in the genes for which FDA approved for PARP inhibitors, as highly elevated has been associated with response to PARP inhibitors., CA 19???9 was 24.35 and CEA was 5.1 and his PSA was 0.033 . 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 but his insurance declined Follow-up chest x-ray done on December 12, 2020 shows numerous noncalcified pulmonary nodules, unchanged, CT scan of abdomen pelvis done on December 12, 2020 shows numerous metastatic lesion with mixed density in the liver largest in the lateral aspect of right lobe, 5.4 cm., Size unchanged when compared with CT scan done on June 15, 2020 Came for follow-up, denies any specific complaints, no fever chills, no nausea or vomiting, no diarrhea constipation, no new bony pains, no jaundice, no abdominal pain, no hot flashes, tolerating 3 monthly Zoladex well otherwise Medications: Acetaminophen 1 Tablet (of 325 mg) Oral daily, Aspirin 1 Tablet (of 81 mg) Tablet, enteric coated Oral daily, Cyanocobalamin 1 Capsule (of 1000 mcg) Oral daily, Ferrous Sulfate 1 Tablet (of 325 (65 fe) mg) Oral b.i.d., Folic Acid 1 Tablet (of 1 mg) Oral daily, glipiZIDE 1 Tablet (of 5 mg) Oral daily, Lisinopril 1 Tablet (of 20 mg) Oral daily, Metoprolol Tartrate 1 Tablet (of 25 mg) Oral b.i.d., Pantoprazole Sodium 1 Tablet (of 20 mg) Tablet, enteric coated Oral daily, Simvastatin 1 Tablet (of 20 mg) Oral daily, Tamsulosin HCl 1 Capsule (of 0.4 mg) Oral daily, Tamsulosin HCl 1 Tablet (of 0.4 mg) Capsule Oral daily Allergies: No Known Allergies. Review of Systems: Review of Systems is not available for this patient. Vital Signs: Performed on Dec 26, 2020 13:25 Height - 66.00 in Weight - 143.8 lbs (HIGH) BSA - 1.74 sq.m BMI - 23.21 Temperature - 98.2 F (LOW) Pulse - 58 /min (LOW) Respiration - 18 /min BP - 120/71 mm(hg) O2 Sat - 98 % Pain - 0 Fatigue - 0 Performance Status: 0 - Fully active, able to carry on all predisease activities without restrictions. (ECOG) Physical Examination: ENMT - No mouth sores, no thrush, no jaundice, Respiratory - Lungs are clear to auscultation, Cardiovascular - Regular rate and rhythm of heart , Abdomen - Soft, bowel sounds present, Extremities - No visible edema. Lab/Imaging: Most recent lab results are not available for this patient. Impression: Metastatic prostate cancer per CT-guided liver biopsy done on February 29, 2020, Repeat liver biopsy done on July 18, 2020 because his PSA normalized with ADT e.g. went down to 0.089 from 1800 at the time of diagnosis but his follow-up CT scan of chest abdomen done on July 03, 2020 showed disease progression in the liver so there was a concern about second primary in the liver but repeat liver biopsy showed metastatic foamy gland ovarian adenocarcinoma, most suggestive of prostatic primary CT scan of abdomen pelvis done on February 01, 2020 showed hepatic lesion and bilateral lung bases subcentimeter nodules Chronic kidney injury, BPH/chronic urinary retention, now being managed with CIC and chronic bacteremia with Septra DS half tablet twice a day. Status post TURP in July 2016 biopsy confirmed benign prostatic hyperplasia. History of perforated duodenal ulcer Anemia, on oral iron supplement. discussed with Mr Lizarraga his disease status and liver biopsy report . The report confirmed, metastatic prostate cancer based on histology and immunohistochemistry stains. His CT scan of abdomen pelvis in January 2020 showed liver mets as well as bilateral lung bases. Mr Lizarraga is a elderly gentleman with multiple comorbid condition and compromised nutritional status and performance status. He has a history of recurrent urine tract infection and recent hospitalization with septicemia. reported that Mr Lizarraga may not be a candidate for systemic chemotherapy upfront, but rather try ADT with Zoladex/Casodex along with vitamin D and calcium supplement. Other option including orchiectomy but Mr Lizarraga preferred a trial of ADT with Zoladex/Casodex. requested a bone scan and CT scan of chest to assess the extent of disease. Follow-up CT scan of chest abdomen pelvis done on June 15, 2020 showed stable bilateral subcentimeter pulmonary nodules, disease progression in the liver and no abdominal, pelvic or mediastinal lymphadenopathy, PSA is down to 0.089 Casodex was discontinued on June 17, 2019 because of progressive generalized weakness and fatigue and excellent response with a PSA down to subzero as follow-up CT scan of chest abdomen pelvis shows disease progression liver, there was a concern whether patient may have second primary so liver biopsy was planned, along with a colonoscopy to rule out GI primary.Molecular profiling on liver biopsy sample reported on August 13, 2020 confirmed presence of TMPRSS2-ERG fusion, consistent with a diagnosis of prostate cancer, moreover CA 19???9 and CEA were within normal limits. And also showed genomic DANIEL e.g. high level of loss of heterozygosity, which could be result of alteration in these genes for which FDA approved PARP inhibitors, highly elevated has been associated with response to P ADELINE inhibitors, But insurance declined Follow-up chest x-ray done on December 12, 2020 shows numerous noncalcified pulmonary nodules, unchanged, CT scan of abdomen pelvis done on December 12, 2020 shows numerous metastatic lesion with mixed density in the liver largest in the lateral aspect of right lobe, 5.4 cm., Size unchanged when compared with CT scan done on June 15, 2020 Plan: Discussed with patient his Follow-up chest x-ray done on December 12, 2020 shows numerous noncalcified pulmonary nodules, unchanged, CT scan of abdomen pelvis done on December 12, 2020 shows numerous metastatic lesion with mixed density in the liver largest in the lateral aspect of right lobe, 5.4 cm., Size unchanged when compared with CT scan done on June 15, 2020 Clinically, patient doing well with no new signs symptom suggestive of disease progression, his follow-up CT scan of abdomen pelvis shows stable liver mets due to foamy variant of prostate cancer which is somewhat aggressive form, earlier patient was recommended PARP inhibitor, based on his molecular profiling which showed genomic DANIEL mutation but insurance declined., Patient was offered systemic therapy with docetaxel but patient and his declined the chemotherapy knowing the risk versus benefit moreover his follow-up CT scan shows no evidence of disease progression when compared with CT scan done in June 2020 and patient has excellent quality of life. Since that case we will continue to monitor and if you develop disease progression or symptoms, may consider palliative chemotherapy with Taxotere otherwise continue 3 monthly Zoladex and patient will return to clinic in 2 months with CBC CMP and PSA and for his next scheduled dose of Zoladex.] Signed By: Betty Foss M.D. <<Signature on File>>
== END 2020-12-26 10:47 | disposition home or self-care (01) ==
LOC: ONCMED 10:53
PROVIDERS: PCP Family Medicine; Visit Provider Internal Medicine Hematology & Oncology
DX: C61 Malignant neoplasm of prostate (principal); C78.7 Secondary malignant neoplasm of liver and intrahepatic bile duct; C78.01 Secondary malignant neoplasm of right lung; C78.02 Secondary malignant neoplasm of left lung; N18.9 Chronic kidney disease, unspecified; N40.0 Benign prostatic hyperplasia without lower urinary tract symptoms; R33.9 Retention of urine, unspecified; D50.9 Iron deficiency anemia, unspecified; Z87.11 Personal history of peptic ulcer disease; Z79.899 Other long term (current) drug therapy; Z92.21 Personal history of antineoplastic chemotherapy
CPT/HCPCS: 36415; 80053; 84153; 85025; 99214

== ENCOUNTER 2021-02-21 13:06 | Outpatient (CLI) | payer MEDICARE, OTHER, SELFPAY ==
[2021-02-21 13:54] LABS: Basophils % 0.7 %; Eosinophils # 0.1 10^3/uL (0.0-0.8); Hematocrit 36.1 % (42.0-52.0); Hemoglobin 11.5 g/dL (11.7-16.6); Lymphocytes # 2.1 10^3/uL (0.8-4.8); Lymphocytes % 33.9 %; Mean Corpuscular HGB Conc 31.9 g/dL (30.0-36.0); Mean Corpuscular Hemoglobin 32.1 pg (28.0-34.0); Mean Corpuscular Volume 100.8 fl (80-94); Mean Platelet Volume 9.2 fL (7.4-10.4); Monocytes # 0.5 10^3/uL (0.2-0.9); Monocytes % 8.1 %; Neutrophils # 3.34 10^3/uL (1.8-7.7); Nucleated Red Blood Cells % 0 %; Platelet Count 176 10^3/cmm (130-400); Red Blood Count 3.58 10^6/uL (4.1-5.3); Red Cell Distribution Width 12.9 % (12.1-15.1); White Blood Count 6.1 10^3/uL (4.0-10.0)
[2021-02-21 14:27] LABS: Prostate Specific Antigen 0.107 ng/mL (0-4)
[2021-02-21 14:38] LABS: Alanine Aminotransferase 11 U/L (0-41); Albumin Level 4.1 g/dL (3.5-5.2); Alkaline Phosphatase 97 IU/L (40-130); Anion Gap 18.1 (5-19); Aspartate Amino Transferase 18 U/L (0-40); Blood Urea Nitrogen 28 mg/dL (8-23); Calcium 8.8 mg/dL (8.5-10.5); Carbon Dioxide 20 mmol/L (22-29); Chloride 107 mmol/L (98-107); Globulin 3.2 g/dL (1.3-4.6); Glucose 94 mg/dL (65-115); Osmolality Calculated 297 mOsm/kg (285-295); Potassium 4.1 mmol/L (3.5-5.1); Sodium 141 mmol/L (136-145); Total Bilirubin 0.4 mg/dL (0.15-1.2); Total Protein 7.3 g/dL (6.6-8.7)
== END 2021-02-21 13:07 | disposition home or self-care (01) ==
LOC: ONCMED 13:09
PROVIDERS: PCP Family Medicine; Visit Provider Internal Medicine Hematology & Oncology
DX: C61 Malignant neoplasm of prostate (principal); C78.7 Secondary malignant neoplasm of liver and intrahepatic bile duct; D50.9 Iron deficiency anemia, unspecified; N40.0 Benign prostatic hyperplasia without lower urinary tract symptoms; N32.0 Bladder-neck obstruction; N30.20 Other chronic cystitis without hematuria; F17.290 Nicotine dependence, other tobacco product, uncomplicated
CPT/HCPCS: 36415; 80053; 84153; 85025

== ENCOUNTER 2021-02-24 06:38 | Outpatient (CLI) | payer MEDICARE, OTHER, SELFPAY ==
--- NOTE | 2021-02-24 10:04 | ONC FU_ITS ---
Dr. Foss follow up note Patient: Aung Lizarraga Unit #: [id number]: 1935 Dicatated By: Betty Foss M.D.Date of Visit:Feb 24, 2021 Onc Med Follow-up/Prog Note History of Present Illness: Mr. Lizarraga is an 85-year-old gentleman with a complex medical history including diabetes mellitus type 2, hyperlipidemia, chronic renal disease, palpitations (EKG showed first-degree AV block, RBBB, LAFB); left knee osteoarthritis, knee replacement is under consideration and history of benign prostate hypertrophy. He underwent TURP on July 26, 2016 which confirmed benign prostatic hyperplasia. 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 He underwent cystoscopy in June 2016 showed severe trabeculation. Renal ultrasound done in April 2019 showed bilateral hydronephrosis, cystoscopy done in April 2019 revealed some adenomatous regrowth in the distal prostatic fossa. Mr Lizarraga continues to follow with urology for chronic urinary retention managed with CIC and bacteriuria on antibiotic. He is taking Bactrim DS 1/2 tablet twice a day for UTI suppression. On February 01, 2020, Mr Lizarraga went to the emergency room with hypotension, generalized weakness and fatigue, diarrhea for 1 week duration. He was diagnosed with C. difficile and sepsis. He was treated with broad-spectrum antibiotic. He also underwent CT scan of abdomen pelvis on February 01, 2020 which showed 2.2 cm hypodense mass in the right liver and multifocal new subcentimeter nodules were also identified in bilateral lung bases. 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 As per pathology note histology and immunohistochemistry stains favor prostatic primary with metastasis to the liver. Patient denies alcohol use but uses smokeless tobacco. Started on Zoladex every 3 months on March 23, 2020 along with daily Casodex Follow-up CT scan of chest abdomen pelvis done on June 15, 2020 showed innumerable subcentimeter noncalcified nodules throughout both lungs most consistent with metastatic disease largest is about 8 mm. Lung bases are similar in appearance to CT scan of abdomen pelvis done on February 01, 2020. No mediastinal or hilar lymphadenopathy Numerous peripherally enhancing metastatic lesion throughout both hepatic lobes significantly progressed compared to previous. Largest lesion right hepatic lobe measuring 5.3 x 3.9 cm, has progressed compared to prior CT scan done on February 01, 2020 No adenopathy in abdomen or pelvis. Enlarged prostate with 6.1 cm with evidence of bladder outlet obstruction. Underwent CT-guided liver biopsy on July 18, 2020 which confirmed metastatic foamy gland variant adenocarcinoma, most suggestive of prostatic primary Molecular profiling Reported on August 13, 2020 showed a TMPRSS2-ERG fusion, consistent with diagnosis of prostate cancer and also showed genomic DANIEL, eg ( high level of loss of heterozygosity) could be result of alteration in the genes for which FDA approved for PARP inhibitors, as highly elevated has been associated with response to PARP inhibitors., CA 19???9 was 24.35 and CEA was 5.1 and his PSA was 0.033 . 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 but his insurance declined Follow-up chest x-ray done on December 12, 2020 shows numerous noncalcified pulmonary nodules, unchanged, CT scan of abdomen pelvis done on December 12, 2020 shows numerous metastatic lesion with mixed density in the liver largest in the lateral aspect of right lobe, 5.4 cm., Size unchanged when compared with CT scan done on June 15, 2020 , his follow-up CT scan of abdomen pelvis shows stable liver mets due to foamy variant of prostate cancer which is somewhat aggressive form, earlier patient was recommended PARP inhibitor, based on his molecular profiling which showed genomic DANIEL mutation but insurance declined., Patient was offered systemic therapy with docetaxel but patient and his declined the chemotherapy knowing the risk versus benefit moreover his follow-up CT scan shows no evidence of disease progression when compared with CT scan done in June 2020 and patient has excellent quality of life. Came for follow-up, denies any specific complaints, no fever chills, no nausea or vomiting, no diarrhea or constipation, no new bony pains, no jaundice, no abdominal pain, no dysuria or hematuria, no hot flashes, tolerating 3 monthly Zoladex well Medications: Acetaminophen 1 Tablet (of 325 mg) Oral daily, Aspirin 1 Tablet (of 81 mg) Tablet, enteric coated Oral daily, Cyanocobalamin 1 Capsule (of 1000 mcg) Oral daily, Ferrous Sulfate 1 Tablet (of 325 (65 fe) mg) Oral b.i.d., Folic Acid 1 Tablet (of 1 mg) Oral daily, glipiZIDE 1 Tablet (of 5 mg) Oral daily, Lisinopril 1 Tablet (of 20 mg) Oral daily, Metoprolol Tartrate 1 Tablet (of 25 mg) Oral b.i.d., Pantoprazole Sodium 1 Tablet (of 20 mg) Tablet, enteric coated Oral daily, Simvastatin 1 Tablet (of 20 mg) Oral daily, Tamsulosin HCl 1 Capsule (of 0.4 mg) Oral daily, Tamsulosin HCl 1 Tablet (of 0.4 mg) Capsule Oral daily Allergies: No Known Allergies. Review of Systems: Review of Systems is not available for this patient. Vital Signs: Performed on Feb 24, 2021 09:03 Height - 66.00 in Weight - 149 lbs (HIGH) BSA - 1.76 sq.m BMI - 24.05 Temperature - 97.8 F (LOW) Pulse - 65 /min Respiration - 16 /min BP - 122/70 mm(hg) O2 Sat - 100 % Pain - 0 Fatigue - 0 Performance Status: 1 - No physically strenuous activity, but ambulatory and able to carry out light or sedentary work (e.g. office work, light house work). (ECOG) Physical Examination: ENMT - No mouth sores, no thrush, no jaundice, Respiratory - Lungs are clear to auscultation, Cardiovascular - Regular rate and rhythm of heart, Abdomen - Soft, bowel sounds present, Extremities - No visible edema. Lab/Imaging: Most recent lab results are not available for this patient. Impression: Metastatic prostate cancer per CT-guided liver biopsy done on February 29, 2020, Repeat liver biopsy done on July 18, 2020 because his PSA normalized with ADT e.g. went down to 0.089 from 1800 at the time of diagnosis but his follow-up CT scan of chest abdomen done on July 03, 2020 showed disease progression in the liver so there was a concern about second primary in the liver but repeat liver biopsy showed metastatic foamy gland ovarian adenocarcinoma, most suggestive of prostatic primary CT scan of abdomen pelvis done on February 01, 2020 showed hepatic lesion and bilateral lung bases subcentimeter nodules Chronic kidney injury, BPH/chronic urinary retention, now being managed with CIC and chronic bacteremia with Septra DS half tablet twice a day. Status post TURP in July 2016 biopsy confirmed benign prostatic hyperplasia. History of perforated duodenal ulcer Anemia, on oral iron supplement. discussed with Mr Lizarraga his disease status and liver biopsy report . The report confirmed, metastatic prostate cancer based on histology and immunohistochemistry stains. His CT scan of abdomen pelvis in January 2020 showed liver mets as well as bilateral lung bases. Mr Lizarraga is a elderly gentleman with multiple comorbid condition and compromised nutritional status and performance status. He has a history of recurrent urine tract infection and recent hospitalization with septicemia. reported that Mr Lizarraga may not be a candidate for systemic chemotherapy upfront, but rather try ADT with Zoladex/Casodex along with vitamin D and calcium supplement. Other option including orchiectomy but Mr Lizarraga preferred a trial of ADT with Zoladex/Casodex. requested a bone scan and CT scan of chest to assess the extent of disease. Follow-up CT scan of chest abdomen pelvis done on June 15, 2020 showed stable bilateral subcentimeter pulmonary nodules, disease progression in the liver and no abdominal, pelvic or mediastinal lymphadenopathy, PSA is down to 0.089 Casodex was discontinued on June 17, 2019 because of progressive generalized weakness and fatigue and excellent response with a PSA down to subzero as follow-up CT scan of chest abdomen pelvis shows disease progression liver, there was a concern whether patient may have second primary so liver biopsy was planned, along with a colonoscopy to rule out GI primary.Molecular profiling on liver biopsy sample reported on August 13, 2020 confirmed presence of TMPRSS2-ERG fusion, consistent with a diagnosis of prostate cancer, moreover CA 19???9 and CEA were within normal limits. And also showed genomic DANIEL e.g. high level of loss of heterozygosity, which could be result of alteration in these genes for which FDA approved PARP inhibitors, highly elevated has been associated with response to P ADELINE inhibitors Plan: Discussed with patient regarding his labs white blood count 6.1 hemoglobin 11.5 g medical 36.1 platelets 176,000 CMP within normal limits except creatinine 1.7, PSA 0.107 compared to 0.061 on December 26, 2020 Clinically, patient doing well with no new signs symptom suggestive of disease progression but his follow-up labs shows progressive PSA., At this point we will proceed with next 3 monthly dose of Zoladex today and he will return to clinic in 3 months with CBC CMP PSA, testosterone and CT scan of abdomen pelvis to assess disease status, earlier based on his recent liver biopsy which confirmed foamy variant of prostate cancer which is aggressive form and non-PSA secretory tumor usually do not respond to ADT, considering patient's age and comorbid condition not a candidate for docetaxel and as guardant 360 showed loss of DANIEL, and those patient parp inhibitor can be used, his insurance has declined, reappeal is in progress. Signed By: Betty Foss M.D. <<Signature on File>>
[2021-02-24] MEDS: lidocaine 1% INJ 20 mL INJECTION (10:45)
[2021-02-24] MEDS: goserelin acetate 10.8 mg Implant SUBCUT (10:45)
== END 2021-02-24 06:39 | disposition home or self-care (01) ==
LOC: ONCMED 06:39
PROVIDERS: PCP Family Medicine; Visit Provider Internal Medicine Hematology & Oncology
DX: C61 Malignant neoplasm of prostate (principal); C78.7 Secondary malignant neoplasm of liver and intrahepatic bile duct; C79.89 Secondary malignant neoplasm of other specified sites; C78.01 Secondary malignant neoplasm of right lung; C78.02 Secondary malignant neoplasm of left lung; N40.0 Benign prostatic hyperplasia without lower urinary tract symptoms; R33.9 Retention of urine, unspecified; R78.81 Bacteremia; D50.9 Iron deficiency anemia, unspecified; Z87.11 Personal history of peptic ulcer disease; Z79.899 Other long term (current) drug therapy; Z79.818 Long term (current) use of other agents affecting estrogen receptors and estrogen levels
CPT/HCPCS: 96372; 96402; 99215; J9202

== ENCOUNTER 2021-03-30 08:49 | Outpatient (CLI) | payer MEDICARE, OTHER, SELFPAY ==
[2021-03-30 09:21] LABS: Basophils % 0.4 %; Eosinophils % 0.7 %; Hematocrit 35.2 % (42.0-52.0); Hemoglobin 11.2 g/dL (11.7-16.6); Lymphocytes # 2.2 10^3/uL (0.8-4.8); Lymphocytes % 38.4 %; Mean Corpuscular HGB Conc 31.8 g/dL (30.0-36.0); Mean Corpuscular Volume 100.6 fl (80-94); Mean Platelet Volume 9.5 fL (7.4-10.4); Monocytes # 0.4 10^3/uL (0.2-0.9); Monocytes % 6.4 %; Neutrophils # 3.04 10^3/uL (1.8-7.7); Neutrophils % 53.9 %; Nucleated Red Blood Cells % 0 %; Platelet Count 150 10^3/cmm (130-400); Red Cell Distribution Width 13.1 % (12.1-15.1); White Blood Count 5.6 10^3/uL (4.0-10.0)
== END 2021-03-30 08:50 | disposition home or self-care (01) ==
LOC: ONCMED 08:51
PROVIDERS: PCP Family Medicine; Visit Provider Internal Medicine Medical Oncology
DX: C61 Malignant neoplasm of prostate (principal); C78.01 Secondary malignant neoplasm of right lung; C78.02 Secondary malignant neoplasm of left lung; C78.7 Secondary malignant neoplasm of liver and intrahepatic bile duct
CPT/HCPCS: 36415; 85025

== ENCOUNTER 2021-04-20 08:50 | Outpatient (CLI) | payer MEDICARE, OTHER, SELFPAY ==
[2021-04-20 09:31] LABS: Basophils % 0.7 %; Hematocrit 28.5 % (42.0-52.0); Hemoglobin 9.5 g/dL (11.7-16.6); Lymphocytes # 0.4 10^3/uL (0.8-4.8); Lymphocytes % 28.9 %; Mean Corpuscular HGB Conc 33.3 g/dL (30.0-36.0); Mean Corpuscular Hemoglobin 32.2 pg (28.0-34.0); Mean Corpuscular Volume 96.6 fl (80-94); Monocytes # 0.1 10^3/uL (0.2-0.9); Monocytes % 3.9 %; Neutrophils % 64.5 %; Nucleated Red Blood Cells % 0 %; Platelet Count 87 10^3/cmm (130-400); Red Blood Count 2.95 10^6/uL (4.1-5.3); Red Cell Distribution Width 13.2 % (12.1-15.1); White Blood Count 1.5 10^3/uL (4.0-10.0)
[2021-04-20 09:48] LABS: Alanine Aminotransferase 33 U/L (0-41); Albumin Level 3.8 g/dL (3.5-5.2); Alkaline Phosphatase 122 IU/L (40-130); Anion Gap 23.3 (5-19); Aspartate Amino Transferase 47 U/L (0-40); Blood Urea Nitrogen 59 mg/dL (8-23); Calcium 8.1 mg/dL (8.5-10.5); Carbon Dioxide 13 mmol/L (22-29); Chloride 107 mmol/L (98-107); Globulin 3.3 g/dL (1.3-4.6); Glucose 182 mg/dL (65-115); Osmolality Calculated 309 mOsm/kg (285-295); Potassium 4.3 mmol/L (3.5-5.1); Sodium 139 mmol/L (136-145); Total Bilirubin 0.6 mg/dL (0.15-1.2); Total Protein 7.1 g/dL (6.6-8.7)
[2021-04-20 10:20] LABS: Neutrophils # 0.98 10^3/uL (1.8-7.7)
[2021-04-20 10:22] LABS: Slide Review Slide Review Perform
[2021-04-20 10:43] LABS: Prostate Specific Antigen 0.076 ng/mL (0-4)
[2021-04-20] MEDS: sodium chloride 0.9% 1,000 ML 999 ML IV (11:30)
== END 2021-04-20 08:51 | disposition home or self-care (01) ==
LOC: ONCMED 08:53
PROVIDERS: Internal Medicine Hematology & Oncology; PCP Family Medicine; Visit Provider Nurse Practitioner Family
DX: C61 Malignant neoplasm of prostate (principal); C78.7 Secondary malignant neoplasm of liver and intrahepatic bile duct; C78.01 Secondary malignant neoplasm of right lung; C78.02 Secondary malignant neoplasm of left lung; N18.9 Chronic kidney disease, unspecified; N40.0 Benign prostatic hyperplasia without lower urinary tract symptoms; R33.9 Retention of urine, unspecified; R78.81 Bacteremia; D50.9 Iron deficiency anemia, unspecified; Z87.11 Personal history of peptic ulcer disease; Z87.440 Personal history of urinary (tract) infections; Z86.19 Personal history of other infectious and parasitic diseases; Z79.818 Long term (current) use of other agents affecting estrogen receptors and estrogen levels; Z79.899 Other long term (current) drug therapy
CPT/HCPCS: 36415; 80053; 84153; 85025; 96360; 99215; J7030

== ENCOUNTER 2021-04-26 14:12 | Emergency (ER) | payer MEDICARE, OTHER, SELFPAY ==
--- NOTE | 2021-04-26 | XRR_ITS ---
PROCEDURE INFORMATION: Exam: XR Chest Exam date and time: 04/26/2021 4:01 PM Age: 85 years old Clinical indication: Injury or trauma; Fall; Blunt trauma (contusions or hematomas); Injury date: 04/24/21; Additional info: Fall, weakness TECHNIQUE: Imaging protocol: XR of the chest. Views: 1 view. COMPARISON: CR XR chest 2V* [id number] 12/12/2020 11:29 AM FINDINGS: Lungs: Emphysematous changes. Patchy bilateral nodular densities again suspected measuring up to 4.8 mm in the right lobe, similar to prior. Pleural spaces: Unremarkable. No pleural effusion. No pneumothorax. Heart/Mediastinum: Unremarkable. No cardiomegaly. Bones/joints: Unremarkable. XR/XR chest 1V portable [id number] IMPRESSION: 1. Negative for traumatic injury to the chest 2. Emphysematous changes. 3. Patchy bilateral nodular densities again suspected measuring up to 4.8 mm in the right lobe, similar to prior.
--- NOTE | 2021-04-26 14:18 | ED_ITS ---
HPI - Weakness General: Chief complaint: Weakness Stated complaint: WEAKNESS, LEG PAIN POST FALL Time Seen by Provider: 04/26/21 14:18 History of Present Illness: HPI Narrative: Mr Lizarraga is an 85-year-old gentleman with significant past medical history of hypertension, hyperlipidemia, diabetes on oral agents, and prostate cancer with requirement of intermittent self cath who presents to the emergency department due to fall and generalized malaise. Generalized malaise has been progressive over the past week. He feels generalized weakness as well as fatigue. He has decreased p.o. intake which he attributes to not being hungry, no associated nausea, vomiting, worsening abdominal pain. He is having normal bowel movements. No respiratory symptoms. He has had fevers at home with T-max of 101.2. Overall the course of symptoms has been worsening. He fell with unclear circumstances related to this morning at about 3 AM. He is unsure if he had any precipitating factors or symptoms. No other changes in health, exacerbating, or alleviating factors identified. 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 Mother , GANGRENE IN STOMACH No problems noted. Social History Smoking and tobacco status: former smoker Alcohol intake: never Marital status: Current occupational status: retired History of recent travel: No Physical Exam Narrative: EXAM NARRATIVE: GENERAL/CONSTITUTIONAL - chronically ill-appearing. Eyes - PERRL, no conjunctival injection ENMT - Atraumatic external nose and ears. Moist mucous membranes NECK - supple. trachea midline CARDIOVASCULAR - regular rate and rhythm. Distal pulses intact. RESPIRATORY - clear to auscultation bilaterally. No retractions or accessory muscle use. ABDOMEN/GI - Nontender/Nondistended. No tenderness to percussion or evidence of peritonitis MSK - right lower extremity tenderness palpation in the mid femur region down through the knee into the tib-fib. Hip pain with rotational movement. Distal CMS intact SKIN - Warm, Dry NEURO - alert and appropriately oriented. No focal neurologic deficits. Moves all extremities equally. PSYCH -impaired cognition and memory Course ED course: - Patient was seen and evaluated by me at bedside - Patient placed on cardiac monitors, IV access obtained - Initial evaluation notable for nonfocal neurologic exam, otherwise as noted above - Symptom treatment ordered - Labs notable for pancytopenia. Elevated creatinine above baseline though improved from prior without acute electrolyte derangement requiring intervention. Bicarb is decreased with increased anion gap. Glucose mildly elevated with no ketones in urine. Transaminitis present. - Given patient's pancytopenia and decreasing absolute neutrophil count in the context of reported fever at home I will order a dose of antibiotics - Imaging notable for right hip fracture and CT finding concerning for intracranial contusion versus hemorrhage versus chronic finding without available comparison. - Upon serial reexamination after treatment the patient was similar - Based on patient history, evaluation, labs, and imaging as interpreted the most likely cause of the patient's condition is head trauma with possible intracranial pathology, right hip fracture, pancytopenia, fever in the context of falling ANC - Updated the patient and family at bedside. Given verbal read of possible bleed versus contusion versus chronic finding related to the patient's head CT in the context of thrombocytopenia and head trauma patient requires transfer for neurosurgical and trauma evaluation. - Patient and family agreeable with plan. - We do not have platelets here for transfusion. - Patient transferred from emergency department in satisfactory condition. Vital Signs: Vital signs: Vital Signs Temperature 98.7 F 04/26/21 17:01 Pulse Rate 119 H 04/26/21 17:01 Respiratory Rate 19 H 04/26/21 17:01 Blood Pressure 112/94 04/26/21 17:01 Pulse Oximetry 92 04/26/21 17:01 MDM - Weakness Medical Records: Attestation: I reviewed the patient's medical records. Lab Data: Attestation: I reviewed the patient's lab results. Labs: Lab Results 04/26/21 04/26/21 04/26/21 15:22 15:22 15:22 WBC 1.2 10^3/uL L 10^ 3/uL (4.0-10.0) RBC 2.86 10^6/uL L 10 ^6/uL (4.1-5.3) Hgb 9.0 g/dL L g/dL (11.7-16.6) Hct 27.5 % L % (42.0-52.0) MCV 96.2 fl H fl (80-94) MCH 31.5 pg pg (28.0-34.0) MCHC 32.7 g/dL g/dL (30.0-36.0) RDW 13.0 % % (12.1-15.1) Plt Count 43 10^3/cmm L 10^ 3/cmm (130-400) MPV 11.3 fL H fL (7.4-10.4) Neut % (Auto) 53.8 % % Lymph % (Auto) 38.0 % % [place] % (Auto) 6.6 % % Eos % (Auto) 0.0 % % Baso % (Auto) 0.8 % % Neut # (Auto) 0.65 10^3/uL L* 1 0^3/uL (1.8-7.7) Lymph # (Auto) 0.5 10^3/uL L 10^ 3/uL (0.8-4.8) [place] # (Auto) 0.1 10^3/uL L 10^ 3/uL (0.2-0.9) Eos # (Auto) 0.0 10^3/uL 10^3/ uL (0.0-0.8) Baso # (Auto) 0.0 10^3/uL 10^3/ uL (0.0-0.1) Nucleated RBC % (a uto) 0 % % Nucleated RBCs # 0.0 /100WBC /100W BC Sodium 140 mmol/L mmol/L (136-145) Potassium 4.7 mmol/L mmol/L (3.5-5.1) Chloride 106 mmol/L mmol/L (98-107) Carbon Dioxide 14 mmol/L L mmol/ L (22-29) Anion Gap 24.7 H (5-19) BUN 50 mg/dL H mg/dL (8-23) Creatinine 2.0 mg/dL H mg/dL (0.7-1.2) GFR Calculation Not Reportable Glucose 229 mg/dL H mg/dL (65-115) Calculated Osmolal ity 311 mOsm/kg H mOs m/kg (285-295) Calcium 7.5 mg/dL L mg/dL (8.5-10.5) Total Bilirubin 0.5 mg/dL mg/dL (0.15-1.2) AST 53 U/L H U/L (0-40) ALT 45 U/L H U/L (0-41) Alkaline Phosphata se 133 IU/L H IU/L (40-130) Troponin T Baselin e 69 ng/L H ng/L (0-15) Total Protein 6.0 g/dL L g/dL (6.6-8.7) Albumin 3.3 g/dL L g/dL (3.5-5.2) Globulin 2.7 g/dL g/dL (1.3-4.6) TSH 1.27 uIU/mL uIU/m L (0.27-4.20) Urine Color Urine Appearance Urine pH Ur Specific Gravit y Urine Protein Urine Glucose (UA) Urine Ketones Urine Blood Urine Nitrate Urine Bilirubin Urine Urobilinogen Ur Leukocyte Yessi ase Urine RBC Urine WBC Ur Squamous Epith Cells Amorphous Sediment Urine Bacteria Urine Mucus SARS-CoV-2 Ag (Rap id) 04/26/21 04/26/21 16:28 16:28 WBC RBC Hgb Hct MCV MCH MCHC RDW Plt Count MPV Neut % (Auto) Lymph % (Auto) [place] % (Auto) Eos % (Auto) Baso % (Auto) Neut # (Auto) Lymph # (Auto) [place] # (Auto) Eos # (Auto) Baso # (Auto) Nucleated RBC % (a uto) Nucleated RBCs # Sodium Potassium Chloride Carbon Dioxide Anion Gap BUN Creatinine GFR Calculation Glucose Calculated Osmolal ity Calcium Total Bilirubin AST ALT Alkaline Phosphata se Troponin T Baselin e Total Protein Albumin Globulin TSH Urine Color Yellow (Yellow) Urine Appearance Clear (CLEAR) Urine pH 5 (5-7) Ur Specific Gravit y 1.015 (1.005-1.030) Urine Protein 1+ H (Negative) Urine Glucose (UA) Norm (Normal) Urine Ketones Negative (Negative) Urine Blood 3+ H (Negative) Urine Nitrate Negative (Negative) Urine Bilirubin Neg (Negative) Urine Urobilinogen Norm mg/dL mg/dL (Negative) Ur Leukocyte Yessi ase 2+ H (Negative) Urine RBC 5-10 /hpf H /hpf (0-2) Urine WBC 10-15 /hpf H /hpf (0-5) Ur Squamous Epith Cells 5-10 /hpf H /hpf (0-5) Amorphous Sediment Not Reportable Urine Bacteria 3+ /hpf H /hpf (NONE) Urine Mucus 1+ /hpf /hpf SARS-CoV-2 Ag (Rap id) Negative (Negative) EKG Data^: EKG 1: Attestation: I personally reviewed and interpreted this EKG as follows: EKG interpretation date: 04/26/21 EKG interpretation time: 15:09 Interpretation: Twelve-lead EKG shows a regular rhythm at a rate of 76. IL interval 200, QRS duration 127, QTc 447. Left axis deviation. Interpretation: Sinus rhythm. Right bundle branch block. 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
[2021-04-26 14:22] VITALS: BP 126/64; PULSE 79; RESP 22; TEMP 37.3; O2SAT 98; BMI 22.1
--- NOTE | 2021-04-26 14:35 | ECG_ITS ---
[facility] Test Date: 2021-04-26 Pat Name: Aung Lizarraga Department: Room: Gender: Male Can Dragger: : 1935 Requested By: Giorgio Augustin Order Number: [id number] Erika MD: Steven Otoole M.D. Measurements Intervals [place] Rate: 76 P: 20 OK: 200 QRS: -56 QRSD: 127 T: -3 QT: 416 QTc: 471 Interpretive Statements SINUS RHYTHM RIGHT BUNDLE BRANCH BLOCK [120+ ms QRS DURATION, UPRIGHT V1, 40+ ms S IN I/aVL/V4/V5/V6] LEFT ANTERIOR FASCICULAR BLOCK [QRS AXIS <= -45, QR IN I, RS IN II] Compared to ECG 06/06/2020 09:49:00 Right bundle-branch block now present Left anterior fascicular block now present First degree AV block no longer present Electronically Signed On 04-26-2021 22:02:58 RADIUS CORNER MACHINE OPERATOR by Steven Otoole M.D. [id number]
--- NOTE | 2021-04-26 15:06 | XRR_ITS ---
PROCEDURE INFORMATION: Exam: XR Pelvis Exam date and time: 04/26/2021 3:06 PM Age: 85 years old Clinical indication: Hip pain; Right hip; Additional info: Fall, pain TECHNIQUE: Imaging protocol: XR pelvis. Views: 1 or 2 view. COMPARISON: CT abdomen pelvis w con* [id number] 12/12/2020 1:14 PM FINDINGS: Bones/joints: Right basicervical hip fracture with some impaction. Lumbar spine degenerative changes. Soft tissues: Unremarkable. Vasculature: Scattered vascular calcifications. XR/XR pelvis 1-2V* [id number] IMPRESSION: 1. Right basicervical hip fracture with some impaction. 2. Lumbar spine degenerative changes. 3. Scattered vascular calcifications.
--- NOTE | 2021-04-26 15:06 | XRR_ITS ---
PROCEDURE INFORMATION: Exam: XR Right Femur Exam date and time: 04/26/2021 3:06 PM Age: 85 years old Clinical indication: Pain and injury or trauma; Fall; Blunt trauma; Thigh or upper leg; Right; Injury date: [id number]; Additional info: Fall, pain TECHNIQUE: Imaging protocol: XR Right femur. Views: 2 views. COMPARISON: CR Knees Bilat [place] [id number] 06/30/2019 10:59 AM FINDINGS: Bones/joints: Basicervical impacted hip fracture. Severe osteoarthritis of the knee. Soft tissues: Unremarkable. Vasculature: Scattered vascular calcifications. XR/XR femur RT min 2V* [id number] IMPRESSION: 1. Basicervical impacted hip fracture. 2. Severe osteoarthritis of the knee. 3. Scattered vascular calcifications.
--- NOTE | 2021-04-26 15:06 | XRR_ITS ---
PROCEDURE INFORMATION: Exam: XR Right Tibia and Fibula Exam date and time: 04/26/2021 3:06 PM Age: 85 years old Clinical indication: Pain and injury or trauma; Fall; Blunt trauma; Lower leg; Right; Injury date: 04/24/21; Additional info: Fall, pain TECHNIQUE: Imaging protocol: XR Right tibia and fibula. Views: 2 views. COMPARISON: CR Knees Bilat WB [place] view [id number] 06/30/2019 10:59 AM FINDINGS: Bones/joints: Severe osteoarthritis of the knee. Soft tissues: Normal. Vasculature: Scattered vascular calcifications. XR/XR tibia fibula RT 2V [id number] IMPRESSION: 1. Severe osteoarthritis of the knee. 2. Scattered vascular calcifications.
--- NOTE | 2021-04-26 15:06 | XRR_ITS ---
PROCEDURE INFORMATION: Exam: XR Right Knee Exam date and time: 04/26/2021 3:06 PM Age: 85 years old Clinical indication: Pain and injury or trauma; Fall; Blunt trauma; Knee; Right; Injury date: 04/24/21; Additional info: Fall, pain TECHNIQUE: Imaging protocol: XR Right knee. Views: 3 views. COMPARISON: CR Knees Bilat [place] [id number] 06/30/2019 10:59 AM FINDINGS: Bones/joints: Severe osteoarthritis of the knee. Soft tissues: Normal. Vasculature: Scattered vascular calcifications. XR/XR knee RT 3V* [id number] IMPRESSION: 1. Severe osteoarthritis of the knee. 2. Scattered vascular calcifications.
[2021-04-26 15:15] VITALS: BP 137/75; PULSE 79; RESP 24; TEMP 37.3; O2SAT 88
--- NOTE | 2021-04-26 15:19 | CT_ITS ---
WS: [id number] CT head wo con* [id number] REASON FOR EXAM: fall, headstrike IV CONTRAST ADMINISTERED: Noncontrast TOTAL EXAM DLP: 596.[address] scans at [facility] use at least one of these dose optimization techniques: automat ed exposure control; mA and/or kV adjustment per patient size (includes targeted exams where dose is matched to clinical indication); or iterative reconstruction. FINDINGS: The bony calvarium is intact. Normal base of the skull. Zygomatic arches and bony orbits are intact. No midline shift or other significant mass effect. In the posterior most and medial most right occipital region there is ill-defined hyperintensity. Thi s abnormality is inseparable from the inner table of the skull. It is approximately 2.2 x 1.4 cm. The re is no significant perilesional edema or mass effect. There appears to be a small area of low atten uation within this area of abnormality. There is a very similar appearing abnormality in the right posterior parietal region near the vertex of the skull. It is approximately 1.6 x 1.3 cm. This abnormality is also inseparable from the inner t able of the skull. The area of low attenuation associated with this abnormality is more prominent. No other findings of intracranial hemorrhage or extra-axial fluid collection. Prominence of the ventricles and CSF spaces about the brain. CT/CT head wo con* [id number] IMPRESSION: 2 foci of abnormality in the right hemisphere as above. Potentially these could represent areas of contusion from head trauma. The presence of 2 separate foci and the appearance of small areas of hypoattenuation also raise the possibilit y of intracranial metastatic disease. Conservatively one could repeat the CT scan however this may not resolve the is antoine. Patient may need MRI of the brain with and without contrast as clinically warranted.
--- NOTE | 2021-04-26 15:19 | CT_ITS ---
WS: [id number] CT cervical spin wo con* [id number] REASON FOR EXAM: fall, ?loc IV CONTRAST ADMINISTERED: Noncontrast TOTAL EXAM DLP: 397.[address] scans at [facility] use at least one of these dose optimization techniques: automat ed exposure control; mA and/or kV adjustment per patient size (includes targeted exams where dose is matched to clinical indication); or iterative reconstruction. FINDINGS: No significant compression deformity or other focal vertebral body abnormality. Normal odontoid. No significant listhesis. Moderate narrowing of the intervertebral disc spaces at C2-C3, C4-C5, and C7-T1. Degenerative changes in the facet joints C2-C5. Normal facet alignment and no facet fracture. CT/CT cervical spin wo con* [id number] IMPRESSION: No acute cervical abnormality. Degenerative spondylosis.
[2021-04-26 15:29] LABS: Basophils % 0.8 %; Hematocrit 27.5 % (42.0-52.0); Lymphocytes # 0.5 10^3/uL (0.8-4.8); Mean Corpuscular HGB Conc 32.7 g/dL (30.0-36.0); Mean Corpuscular Hemoglobin 31.5 pg (28.0-34.0); Mean Corpuscular Volume 96.2 fl (80-94); Mean Platelet Volume 11.3 fL (7.4-10.4); Monocytes # 0.1 10^3/uL (0.2-0.9); Monocytes % 6.6 %; Neutrophils % 53.8 %; Nucleated Red Blood Cells % 0 %; Platelet Count 43 10^3/cmm (130-400); Red Blood Count 2.86 10^6/uL (4.1-5.3); White Blood Count 1.2 10^3/uL (4.0-10.0)
[2021-04-26 15:52] LABS: Neutrophils # 0.65 10^3/uL (1.8-7.7); Slide Review Slide Review Perform
[2021-04-26 16:09] LABS: Troponin(5th) Baseline 69 ng/L (0-15)
[2021-04-26 16:19] LABS: Alanine Aminotransferase 45 U/L (0-41); Albumin Level 3.3 g/dL (3.5-5.2); Alkaline Phosphatase 133 IU/L (40-130); Blood Urea Nitrogen 50 mg/dL (8-23); Calcium 7.5 mg/dL (8.5-10.5); Carbon Dioxide 14 mmol/L (22-29); Chloride 106 mmol/L (98-107); Globulin 2.7 g/dL (1.3-4.6); Glucose 229 mg/dL (65-115); Osmolality Calculated 311 mOsm/kg (285-295); Sodium 140 mmol/L (136-145); Thyroid Stimulating Hormone 1.27 uIU/mL (0.27-4.20); Total Bilirubin 0.5 mg/dL (0.15-1.2)
[2021-04-26 16:24] LABS: Anion Gap 24.7 (5-19); Aspartate Amino Transferase 53 U/L (0-40); Potassium 4.7 mmol/L (3.5-5.1)
[2021-04-26 16:30] VITALS: BP 145/65; PULSE 82; RESP 30; O2SAT 95
[2021-04-26 17:01] VITALS: BP 112/94; PULSE 119; RESP 19; TEMP 37.1; O2SAT 92
[2021-04-26] MEDS: sodium chloride 0.9% 1,000 ML 999 ML IV (17:01)
[2021-04-26 17:11] LABS: SARS Covid-2 Antigen Negative (Negative); Urine Appearance Clear (CLEAR); Urine Color Yellow (Yellow); pH Urine 5 (5-7)
[2021-04-26 17:12] LABS: Add Urine Microscopic? YES; Bilirubin Urine Neg (Negative); Blood Urine 3+ (Negative); Glucose Urine UA Norm (Normal); Ketones Urine Negative (Negative); Leukocyte Esterase Urine 2+ (Negative); Nitrate Urine Negative (Negative); Protein Urine 1+ (Negative); Specific Gravity, Urine 1.015 (1.005-1.030); Urobilinogen Urine Norm (Negative)
[2021-04-26 17:13] LABS: Add Urine Culture? Yes; Bacteria Urine 3+ /hpf; Mucus Urine 1+ /hpf
== END 2021-04-26 17:47 | disposition short-term general hospital (02) ==
PROVIDERS: Emergency Provider Emergency Medicine; PCP Family Medicine
DX: R53.1 Weakness (principal); E78.5 Hyperlipidemia, unspecified; I10 Essential (primary) hypertension; Z85.46 Personal history of malignant neoplasm of prostate; Z87.891 Personal history of nicotine dependence; E11.9 Type 2 diabetes mellitus without complications; Z79.84 Long term (current) use of oral hypoglycemic drugs; Z20.822 Contact with and (suspected) exposure to COVID-19
CPT/HCPCS: 51702; 70450; 71045; 72125; 72170; 73552; 73562; 73590; 80053; 81001; 84443; 84484; 85025; 87077; 87086; 87186; 87426; 93005; 96360; 99284; J7030

== ENCOUNTER → 2021-05-30 10:09 | Outpatient (BNVA) | payer MEDICARE, OTHER, SELFPAY | PROVIDERS: PCP Family Medicine; Referring Provider Orthopaedic Surgery; Visit Provider Orthopaedic Surgery | DX: Z96.641 Presence of right artificial hip joint (principal) | CPT/HCPCS: 73502 ==

== ENCOUNTER 2021-06-02 13:45 | Outpatient (CLI) | payer MEDICARE, OTHER, SELFPAY ==
--- NOTE | 2021-06-02 | CT_ITS ---
WS: [id number] CT ABDOMEN PELVIS TECHNIQUE: Contrast-enhanced CT of the abdomen and pelvis with coronal and sagittal reformatted image s. CLINICAL INFORMATION: PROSTATE CA COMPARISON: 12/12/2020 and 06/15/2020 DLP: 1182.[address] scans at [facility] use at least one of these dose optimization techniques: automated e xposure control; mA and/or kV adjustment per patient size (includes targeted exams where dose is matc hed to clinical indication); or iterative reconstruction. FINDINGS: Diffuse metastatic disease throughout both hepatic lobes. Metastatic disease throughout both hepatic lobes has progressed compared to previous with new hepatic lesions throughout both hepatic lobes. Lar gest lesion in the right hepatic lobe is similar in appearance. New conglomeration of lesions in the liver dome for example measure 4.4 x 4.0 cm and 3.6 x 3.8 cm. Normal portal vein and splenic vein. No rmal spleen. Normal GE junction. Fluid distended stomach. Numerous metastatic nodules are visualized in the lung bases similar in appearance. A few new subcent imeter lesions are visualized. Bibasilar atelectasis. Adrenal glands are normal. Bilateral renal teresa ical scarring. No hydronephrosis in either kidney. Fatty atrophy of the pancreas. Tiny fat-containing umbilical hernia. Postoperative changes right RUBENS degrades images in the pelvis. Enlarged heterogeneous enhancing nodular prostate with diffuse bladder wall thickening and bladder di verticuli compatible with bladder outlet obstruction. Small amount of air in the nondependent bladder and diverticuli. Recommend correlation with recent catheterization or instrumentation. Sigmoid diver ticulosis. No evidence of acute diverticulitis. No evidence of high-grade small or large bowel obstru ction. No periaortic or retroperitoneal lymphadenopathy. Small amount of fluid along the right inguin al canal. CT/CT abdomen pelvis w con* [id number] IMPRESSION: 1. Progressed diffuse metastatic disease involving both hepatic lobes. Numerou s new lesions have developed compared to the prior examination. 2. A few new subcentimeter metastatic lesions in the lung bases. This can be f urther evaluated with CT chest. 3. Diffuse enlarged heterogeneous enhancing prostate with evidence of bladder outlet obstruction. 4. Air within the nondependent bladder may be due to recent instrumentation. R ecommend correlation for urinary tract infection. 5. Bilateral renal cortical scarring. No hydronephrosis. 6. No periaortic or retroperitoneal lymphadenopathy. 7. Sigmoid diverticulosis.
[2021-06-02] MEDS: iodixanol 320 mg/mL 100mL Btl IV (15:24)
[2021-06-02] MEDS: iohexol 300 mg/mL 50 mL Btl PO (15:24)
== END 2021-06-02 13:46 | disposition home or self-care (01) ==
PROVIDERS: PCP Family Medicine; Visit Provider Internal Medicine Hematology & Oncology
DX: C61 Malignant neoplasm of prostate (principal); J98.4 Other disorders of lung; K57.30 Diverticulosis of large intestine without perforation or abscess without bleeding
CPT/HCPCS: 74177; Q9967

== ENCOUNTER 2021-06-05 18:36 | Emergency (ER) | payer MEDICARE, OTHER, SELFPAY ==
--- NOTE | 2021-06-05 18:40 | XRR_ITS ---
PROCEDURE INFORMATION: Exam: XR Right Hip Exam date and time: 06/05/2021 6:40 PM Age: 85 years old Clinical indication: Injury or trauma; Fall; Blunt trauma (contusions or hematomas); Right; Hip; Prior surgery TECHNIQUE: Imaging protocol: XR Right hip. Views: 1 view hip with pelvis when performed. COMPARISON: CT abdomen pelvis w con* [id number] 06/02/2021 3:06 PM FINDINGS: Bones/joints: Right hip arthroplasty demonstrates superior dislocation of both the acetabular and femoral component relative the acetabulum with may possible underlying fracture of the acetabulum, consider further characterization with a CT scan. Soft tissues: Scattered vascular calcifications XR/XR hip RT 2-3V wo/w pel* [id number] IMPRESSION: Right hip arthroplasty demonstrates superior dislocation of both the acetabular and femoral component relative the acetabulum with may possible underlying fracture of the acetabulum, consider further characterization with a CT scan.
--- NOTE | 2021-06-05 18:43 | ED_ITS ---
HPI - Fall General: Chief Complaint: Fall Stated Complaint: fall, right hip deformity Time Seen by Provider: 06/05/21 18:39 Source: patient and EMS Mode of arrival: EMS Limitations: no limitations History of Present Illness: HPI Narrative: 85-year-old male who recent hip surgery a few months back states he was going to the bathroom to empty his catheter bent over and fell down and fell onto his right hip he states he felt a pop and was unable to stand. His right leg is internally rotated likely dislocation he states his pain is currently 2 out of 10 denies any other injury when he fell denies hitting his head denies any neck pain he is not on any blood thinners. Associated symptoms-after fall: Denies abdominal pain, chest pain, headache(s) or neck pain Review of Systems Const: Denies: fever(s), chills, body aches or change in appetite Eyes: Denies: blurry vision or eye discomfort ENMT: Denies: throat pain or dental pain Card: Denies: chest pain Resp: Denies: dyspnea GI: Denies: abdominal pain, nausea, vomiting or diarrhea : Denies: dysuria Musc: Reports: extremity pain; Denies: neck pain or back pain Skin/Breast: Denies: rash Neuro: Denies: headache(s) Psych: Denies: depression Aman/Lymph: Denies: easy bruising All/Imm: Denies: urticaria PFSH ED PFSH: Medical History Acute cystitis with hematuria Acute kidney injury 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 Mother , GANGRENE IN STOMACH No problems noted. Social History Alcohol intake: never Marital status: Current occupational status: retired History of recent travel: No Physical Exam Const: COMMON NORMALS: no acute distress, patient oriented x3 and healthy appearing HENMT: COMMON NORMALS: normocephalic and atraumatic HEAD & SCALP: normocephalic and atraumatic Eye: COMMON NORMALS: Equal, round and reactive pupils present and EOMs intact bilaterally PUPIL: Yes Equal, round and reactive pupils present Neck/C-Spine: COMMON NORMALS: full ROM and supple Chest: COMMONS NORMALS: normal inspection of the chest and normal palpation of entire chest wall Resp: COMMON NORMALS: normal respiratory effort, No retractions, No use of accessory muscles and clear to auscultation bilaterally AUSCULTATION: clear to auscultation bilaterally Cardio: COMMON NORMALS: regular rate, regular rhythm and No murmurs present (Cardio) RATE: regular rate RHYTHM: regular rhythm GI: COMMON NORMALS: Normal to inspection, nondistended, normoactive bowel sounds present, Soft to palpation, non-tender and no masses PALPATION: Yes Soft to palpation Extremity: NARRATIVE EXTREMITY EXAM: Tenderness over right hip with internal rotation of the right leg Neuro: COMMON NORMALS: patient oriented x3, moves all extremities and no focal motor deficits Psych: COMMON NORMALS: mental status grossly normal, Normal thought process present and cooperative THOUGHT PROCESS: Normal thought process present Skin: COMMON NORMALS: no rashes or lesions noted and no wounds GENERAL SKIN EXAM: no rashes or lesions noted Procedures Orthopedic Joint Reduction Joint #1: Time Out Performed: Yes Side: right Joint Reduction Location: hip Analgesia: procedural sedation Technique used: traction/counter-traction Post-reduction neuro exam: intact Post-reduction vascular: intact Post Reduction X-Ray Obtained: Yes Post Reduction X-Ray Results: reduced Splint Applied: Yes Patient Tolerated Procedure: well Procedural Sedation Indication: fracture/dislocation reduction ASA Class: II Time of Last PO Intake: 13:06 IV Propofol dose (mg): 60 Patient Tolerated Procedure: well Complications: none Course Vital Signs: Vital signs: Vital Signs Temperature 98.2 F 06/05/21 18:53 Pulse Rate 90 06/05/21 21:15 Respiratory Rate 19 H 06/05/21 21:15 Blood Pressure 111/62 06/05/21 21:15 Pulse Oximetry 97 06/05/21 21:15 MDM - Fall MDM Narrative: Medical decision making narrative: Patient presents here with a hip dislocation after a fall was able to successfully reduce his hip does have a hematoma hemoglobin here is 8.3 which is pretty consistent with his normal with orthostatics is normal no signs of active bleeding he feels improved would like to go home stable for discharge is to follow-up with Dr. Sandoval return if worsening he understands agrees to plan. Lab Data: Labs: Lab Results 06/05/21 21:20 Hgb 8.3 g/dL L g/dL (11.7-16.6) Hct 26.2 % L % (42.0-52.0) Discharge Plan Discharge Patient Disposition: Home Clinical Impression: Hip dislocation, right Qualifiers: Encounter type: initial encounter Qualified Code(s): S73.004A - Unspecified dislocation of right hip, initial encounter Condition: Stable Prescriptions: New hydrocodone-acetaminophen 5-325 mg tablet 1 tab PO Q6H PRN (Reason: pain) Qty: 14 RF: 0 No Action ferrous sulfate [Feosol] 325 mg (65 mg iron) tablet 325 mg PO BID RF: 0 pantoprazole 20 mg tablet,delayed release (DR/EC) 20 mg PO BID RF: 0 acetaminophen [Tylenol] 325 mg capsule 650 mg PO Q6H PRN (Reason: Analgesia) RF: 0 simvastatin 20 mg tablet 20 mg PO DAILY RF: 0 glipizide 5 mg tablet 5 mg PO DAILY RF: 0 metoprolol tartrate 25 mg tablet 25 mg PO BID RF: 0 ascorbic acid (vitamin C) 500 mg PO BID RF: 0 lisinopril 20 mg tablet 20 mg PO BID RF: 0 ciprofloxacin HCl 500 mg tablet 500 mg PO BID Qty: 20 RF: 0 methenamine hippurate 1 gram tablet 1 g PO BID Qty: 180 RF: 3 tamsulosin 0.4 mg capsule See Rx Instructions .ROUTE .COMPLEX Qty: 90 RF: 0 folic acid 1 mg Tablet 1 mg PO DAILY Qty: 30 RF: 0 Discharge Orders: Discharge ED (Routine); Ordered 06/05/21 Ordered By: Wili Garcia Referrals: Priyank Sandoval MD [Physician] - 1-3 days Sergio Sandoval MD [Primary Care Provider] - Discharge Diet: Advance as tolerated Discharge Activity: Increase activity as tolerated Patient Instructions: Hip Dislocation (ED) Coding Level of Care Code ED Lathe Operator Contact Lens for Chg Fwd Exam Comprehensive
[2021-06-05 18:53] VITALS: BP 124/63; PULSE 106; RESP 16; TEMP 36.8; O2SAT 94; BMI 22.7
[2021-06-05 19:26] VITALS: BP 110/74; PULSE 103; RESP 17; O2SAT 96
[2021-06-05] MEDS: propofol 10 mg/mL SDV 20 mL 100 MG IVP (19:49)
--- NOTE | 2021-06-05 19:49 | XRR_ITS ---
PROCEDURE INFORMATION: Exam: XR Right Hip Exam date and time: 06/05/2021 7:49 PM Age: 85 years old Clinical indication: Other: Post redution; Prior surgery; Surgery date: 6+ months; Surgery type: RT. Hip; Additional info: Post reduction TECHNIQUE: Imaging protocol: XR Right hip. Views: 1 view hip with pelvis when performed. COMPARISON: CR (PELVIS, ) 06/05/2021 7:02 PM FINDINGS: Bones/joints: Right hip arthroplasty changes in place with reduction of previously seen dislocation. Soft tissues: Unremarkable. Vasculature: Scattered vascular calcifications. XR/XR hip RT 1V wo/w pel [id number] IMPRESSION: 1. Right hip arthroplasty changes in place with reduction of previously seen dislocation. 2. Scattered vascular calcifications.
--- NOTE | 2021-06-05 20:03 | CTR_ITS ---
PROCEDURE INFORMATION: Exam: CT Right Lower Extremity Without Contrast, Hip Exam date and time: 06/05/2021 8:03 PM Age: 85 years old Clinical indication: Injury or trauma; Fall; Blunt trauma; Hip; Right; Injury details: Post reduction. ; Prior surgery; Additional info: Poss acetabular fx/ dislocation TECHNIQUE: Imaging protocol: CT of the Right lower extremity without contrast was performed. Exam focused on the hip. Radiation optimization: All CT scans at this facility use at least one of these dose optimization techniques: automated exposure control; mA and/or kV adjustment per patient size (includes targeted exams where dose is matched to clinical indication); or iterative reconstruction. COMPARISON: CR XR hip RT 1V wo/w pel [id number] 06/05/2021 7:50 PM RADIATION DOSE METRICS: Total DLP (mGy-cm): 1117.79 FINDINGS: Bones/joints: Right femoral arthroplasty seen in place. Bony defect in the anterior aspect of the acetabulum suspected, best seen series 2, image 31 with smooth margins is likely chronic. Soft tissues: Fluid and probable hematoma measuring up to 8.2 cm seen about the right hip posteriorly. Bowel: Diverticulosis without diverticulitis. CT/CT hip RT wo con* [id number] IMPRESSION: 1. Right femoral arthroplasty seen in place. 2. Bony defect in the anterior aspect of the acetabulum suspected, best seen series 2, image 31 with smooth margins is likely chronic. 3. Fluid and probable hematoma measuring up to 8.2 cm seen about the right hip posteriorly. 4. Diverticulosis without diverticulitis.
--- NOTE | 2021-06-05 20:14 | PC.RESP ---
Standby for conscious Sedation, 15 minutes @ bedside, no interventions indicated.
[2021-06-05 21:15] VITALS: BP 111/62; PULSE 90; RESP 19; O2SAT 97
[2021-06-05 21:24] LABS: Hematocrit 26.2 % (42.0-52.0); Hemoglobin 8.3 g/dL (11.7-16.6)
[2021-06-05 21:57] VITALS: BP 101/59
--- NOTE | 2021-06-06 13:50 | DCPLANNER ---
Addendum entered by Dia Lamb 06/09/21 13:55: Patient had a follow up appointment scheduled for 06.07.21 at ortho - patient did attend appointment. Original Note: research & analytics manager had message to schedule a follow up appointment for patient with ortho. research & analytics manager called the ortho clinic, spoke with Anupama, gave clinic patients information. research & analytics manager was told that patients information will be printed and reviewed. Clinic will call patient with appointment information.
== END 2021-06-05 21:59 | disposition home or self-care (01) ==
PROVIDERS: Emergency Provider Emergency Medicine; PCP Family Medicine
DX: S73.004A Unspecified dislocation of right hip, initial encounter (principal); Z79.84 Long term (current) use of oral hypoglycemic drugs; E78.5 Hyperlipidemia, unspecified; I10 Essential (primary) hypertension; Z85.46 Personal history of malignant neoplasm of prostate; W18.30XA Fall on same level, unspecified, initial encounter
CPT/HCPCS: 27250; 36415; 73501; 73502; 73700; 85014; 85018; 96374; 99283; J2704

== ENCOUNTER 2021-08-26 12:29 | Inpatient (IN) | payer MEDICARE, OTHER, SELFPAY ==
[2021-08-26] VITALS (11 sets, daily range): BP systolic 101–113; BP diastolic 55–69; PULSE 100–110; RESP 16–18; TEMP 36.8–37.2; O2SAT 95–97; BMI 24.2
--- NOTE | 2021-08-26 12:43 | ED_ITS ---
HPI - General Adult General: Chief complaint: General Medical Stated complaint: WEAKNESS Time Seen by Provider: 08/26/21 12:36 History of Present Illness: Patient is an 85-year-old male with a history of recent hip dislocation, hypertension, hyperlipidemia, UTI presenting to the emergency room for evaluation nausea/vomiting, diarrhea and decreased p.o. intake. Patient tells me for since last Saturday he has had decreased appetite and has been having multiple episodes of loose stool. Per chart review and conversation with family, patient was discharged from hospital 06/07 for hip dislocation. Since then, patient has had difficulty walking. There is concern that there may be right-sided hip erythema for which patient was admitted to [facility] for IV antibiotics. Patient was discharged from [facility] on 08/16/2021 and started on Keflex daily. 2 days ago, patient was performing self cath and son noticed that there is pus in the urine. Patient denies any fever or chills, abdominal pain, chest pain, shortness breath, palpitation lightheadedness. Patient denies any melena or hematochezia. Patient denies any urinary complaints at this time. Onset:2 days ago of pus in urine, 7 days of diarrhea Duration:2 days Location:home Severity:moderate Associated symptoms: Reports nausea and vomiting; Deny chest pain, dyspnea, rash or palpitations Review of Systems Const: Reports: other (+generalized weakness); Denies: fever(s) or chills Eyes: Denies: change in vision ENMT: Denies: mouth pain Card: Denies: chest pain or palpitations Resp: Denies: dyspnea or non-productive cough GI: Reports: nausea, vomiting and diarrhea; Denies: abdominal pain : Reports: other (+pyuria); Denies: dysuria Musc: Denies: extremity pain Skin/Breast: Denies: rash or new lesions Neuro: Denies: weakness in extremities Psych: Reports: other (Normal mood) Aman/Lymph: Denies: easy bruising PFSH ED PFSH: Medical History Acute cystitis with hematuria Acute kidney injury 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 Mother , GANGRENE IN STOMACH No problems noted. Social History Smoking and tobacco status: former smoker Alcohol intake: never Marital status: Current occupational status: retired History of recent travel: No Physical Exam Const: COMMON NORMALS: alert HENMT: COMMON NORMALS: atraumatic HEAD & SCALP: atraumatic MOUTH: moist mucous membranes not abnormal Eye: COMMON NORMALS: EOMs intact bilaterally and conjunctivae normal CONJUNCTIVA: Yes conjunctivae normal Neck/C-Spine: COMMON NORMALS: full ROM and supple Resp: COMMON NORMALS: normal respiratory effort and clear to auscultation bilaterally AUSCULTATION: clear to auscultation bilaterally Cardio: RATE: tachycardic GI: COMMON NORMALS: Soft to palpation and non-tender PALPATION: Yes Soft to palpation OTHER: No focal TTP. NO guarding rebound, guarding, rigidity. No CVA tenderness to percussion. Neg Ellis/Neg McBurney's point tenderness, no suprabupic tenderness to palpation. Extremity: COMMON NORMALS: full ROM Neuro: SENSORIUM/ORIENTATION: Yes alert MOTOR EXAM: No Abnormal motor strength present and Other motor observations present (no focal motor deficits) Psych: COMMON NORMALS: speech normal SPEECH: Yes normal speech MOOD & AFFECT: Yes euthymic mood Skin: NARRATIVE SKIN EXAM: +mild scrotal/rectal area erythema and abrasion, no crepitus/warmth or significant focal tenderness to palpation Course Vital Signs: Vital signs: Vital Signs Temperature 99.0 F 08/26/21 12:36 Pulse Rate 109 H 08/26/21 14:45 Respiratory Rate 16 08/26/21 14:45 Blood Pressure 111/57 08/26/21 14:45 Pulse Oximetry 97 08/26/21 14:45 [facility] - General Adult Medical Decision Making 85-year-old male with a history of hypertension, hyperlipidemia, prostate cancer requiring self cath c/b UTI presenting to the emergency room with concerns of nausea vomiting decreased p.o. intake and diarrhea. Physical exam, patient appears to be dry and mildly tachycardic to 110s. No guarding or rebound tenderness or focal abdominal tenderness palpation. Patient is noted to have a white count of 23.8. Creatinine one-point similar to baseline. CT of the pelvis showed proctocolitis. UA is consistent with UTI. Instead of nausea vomiting, cannot rule out pyelonephritis. Patient received IV metronidazole and ceftriaxone for UTI and proctocolitis. Stool culture currently pending. Disposition: admission Lab Data : 08/26/21 12:12 08/26/21 12:12 Radiology Impressions Abdomen/Pelvis CT 08/26/21 13:20 IMPRESSION: 1. Diffuse proctocolitis. 2. Persistent scattered bilateral pulmonary cavitary nodules, and interval increase in size of scattered hepatic metastatic lesions, consistent progression of metastatic disease. Laboratory Results WBC 23.8 10^3/uL (4.0-10.0) H 08/26/21 12:12 RBC 3.44 10^6/uL (4.1-5.3) L 08/26/21 12:12 Hgb 10.4 g/dL (11.7-16.6) L 08/26/21 12:12 Hct 33.0 % (42.0-52.0) L 08/26/21 12:12 MCV 95.9 fl (80-94) H 08/26/21 12:12 MCH 30.2 pg (28.0-34.0) 08/26/21 12:12 MCHC 31.5 g/dL (30.0-36.0) 08/26/21 12:12 RDW 16.8 % (12.1-15.1) H 08/26/21 12:12 Plt Count 274 10^3/cmm (130-400) 08/26/21 12:12 MPV 9.8 fL (7.4-10.4) 08/26/21 12:12 Neut % (Auto) 86.9 % 08/26/21 12:12 Lymph % (Auto) 7.3 % 08/26/21 12:12 [place] % (Auto) 3.2 % 08/26/21 12:12 Eos % (Auto) 0.1 % 08/26/21 12:12 Baso % (Auto) 0.2 % 08/26/21 12:12 Neut # (Auto) 20.70 10^3/uL (1.8-7.7) H 08/26/21 12:12 Lymph # (Auto) 1.7 10^3/uL (0.8-4.8) 08/26/21 12:12 [place] # (Auto) 0.8 10^3/uL (0.2-0.9) 08/26/21 12:12 Eos # (Auto) 0.0 10^3/uL (0.0-0.8) 08/26/21 12:12 Baso # (Auto) 0.0 10^3/uL (0.0-0.1) 08/26/21 12:12 Nucleated RBC % (auto) 0 % 08/26/21 12:12 Nucleated RBCs # 0.0 /100WBC 08/26/21 12:12 Sodium 136 mmol/L (136-145) 08/26/21 12:12 Potassium 3.8 mmol/L (3.5-5.1) 08/26/21 12:12 Chloride 103 mmol/L (98-107) 08/26/21 12:12 Carbon Dioxide 19 mmol/L (22-29) L 08/26/21 12:12 Anion Gap 17.8 (5-19) 08/26/21 12:12 BUN 28 mg/dL (8-23) H 08/26/21 12:12 Creatinine 1.8 mg/dL (0.7-1.2) H 08/26/21 12:12 GFR Calculation Not Reportable 08/26/21 12:12 Glucose 267 mg/dL (65-115) H 08/26/21 12:12 Calculated Osmolality 297 mOsm/kg (285-295) H 08/26/21 12:12 Calcium 7.5 mg/dL (8.5-10.5) L 08/26/21 12:12 Total Bilirubin 0.3 mg/dL (0.15-1.2) 08/26/21 12:12 AST 30 U/L (0-40) 08/26/21 12:12 ALT 26 U/L (0-41) 08/26/21 12:12 Alkaline Phosphatase 375 IU/L (40-130) H 08/26/21 12:12 Total Protein 5.1 g/dL (6.6-8.7) L 08/26/21 12:12 Albumin 2.4 g/dL (3.5-5.2) L 08/26/21 12:12 Globulin 2.7 g/dL (1.3-4.6) 08/26/21 12:12 Lipase 5 U/L (13-60) L 08/26/21 12:12 Urine Color Yellow (Yellow) 08/26/21 13:10 Urine Appearance Hazy (CLEAR) A 08/26/21 13:10 Urine pH 5 (5-7) 08/26/21 13:10 Ur Specific [place] 1.015 (1.005-1.030) 08/26/21 13:10 Urine Protein 1+ (Negative) H 08/26/21 13:10 Urine Glucose (UA) Norm (Normal) 08/26/21 13:10 Urine Ketones Negative (Negative) 08/26/21 13:10 Urine Blood 3+ (Negative) H 08/26/21 13:10 Urine Nitrate Negative (Negative) 08/26/21 13:10 Urine Bilirubin Neg (Negative) 08/26/21 13:10 Urine Urobilinogen Norm mg/dL (Negative) 08/26/21 13:10 Ur Leukocyte Esterase 2+ (Negative) H 08/26/21 13:10 Urine RBC 0-4 /hpf (0-2) H 08/26/21 13:10 Urine WBC >100 /hpf (0-5) H 08/26/21 13:10 Ur Squamous Epith Cells None /hpf (0-5) 08/26/21 13:10 Amorphous Sediment Not Reportable 08/26/21 13:10 Urine Bacteria 1+ /hpf (NONE) H 08/26/21 13:10 Imaging Data Other Imaging: Radiologist's impression: [address] [address] [address] Scan Report Signed Patient: Aung Lizarraga Unit #: [id number] : 1935 Age/Sex: 85 / M ADM Date: 08/26/21 Loc: ER Room/Bed: Attending Dr: Ordering Provider/Ordering MD: Melchor Coleman MD Date of Service: 08/26/21 Procedure(s): CT abdomen pelvis w con* [id number] Accession Number(s): [id number] Report Number: [id number] PROCEDURE INFORMATION: Exam: CT Abdomen And Pelvis With Contrast Exam date and time: 08/26/2021 2:08 PM Age: 85 years old Clinical indication: Nausea and vomiting; Additional info: Eval for pathologies TECHNIQUE: Imaging protocol: Computed tomography of the abdomen and pelvis with contrast. Radiation optimization: All CT scans at this facility use at least one of these dose optimization techniques: automated exposure control; mA and/or kV adjustment per patient size (includes targeted exams where dose is matched to clinical indication); or iterative reconstruction. Contrast material: VISI 320; Contrast volume: 95 ml; Contrast route: INTRAVENOUS (IV);? COMPARISON: CT abdomen pelvis w con* [id number] 06/02/2021 3:06 PM RADIATION DOSE METRICS: Total DLP (mGy-cm): 1080.71 FINDINGS: Pleural spaces: There is a small bilateral pleural effusions with adjacent atelectasis, right greater than left. Tiny bilateral calcified granulomas noted. Multiple cavitary nodules are again seen scattered throughout both lungs. No pneumothorax. Heart: Mildly enlarged heart. Coronary atherosclerotic calcifications seen. No pericardial effusion. Liver: Interval increase in size of multiple scattered hepatic metastatic lesions. Gallbladder and bile ducts: Normal. No calcified stones. No ductal dilation. Pancreas: Normal. No ductal dilation. Spleen: Normal. No splenomegaly. Adrenal glands: Normal. No mass. Kidneys and ureters: The kidneys demonstrate lobulated contour, consistent with chronic scarring. Right kidney loss of volume seen. No hydronephrosis or nephrolithiasis. Symmetric enhancement the kidneys. Stomach and bowel: There is diffuse thickening of the rectum and colon wall association with mild stranding of the surrounding fat, consistent with proctocolitis. No pneumatosis. A duodenal diverticulum is incidentally noted. Appendix: No evidence of appendicitis. Intraperitoneal space: A small amount of free fluid is present, most prominently in the right upper quadrant and pelvis. No pneumoperitoneum. Arteries: Mild diffuse atherosclerotic disease is present. Lymph nodes: Unremarkable. No enlarged lymph nodes. Urinary bladder: The urinary bladder is decompressed with a Sadler catheter in place. Reproductive: Unremarkable as visualized. Bones/joints: The patient is status post right total hip arthroplasty. Degenerative changes of the spine seen. Old healed fracture deformities noted in the left ribcage. Soft tissues: Unremarkable. CT/CT abdomen pelvis w con* [id number] IMPRESSION: 1. Diffuse proctocolitis. 2. Persistent scattered bilateral pulmonary cavitary nodules, and interval increase in size of scattered hepatic metastatic lesions, consistent progression of metastatic disease. ? Dictated By: Aneudy Fry Signed By: Aneudy Fry Signed Date/Time: 08/26/21 1508 DD/ 1408 Discharge Plan Discharge Patient Disposition: Admitted As Inpatient Clinical Impression: Dehydration, Diarrhea, Proctocolitis, Acute UTI Condition: Stable Coding Level of Care Code ED Milk Bottling Machine Operator for g Fwd Exam Comprehensive
[2021-08-26 12:51] LABS: Basophils % 0.2 %; Eosinophils % 0.1 %; Hemoglobin 10.4 g/dL (11.7-16.6); Lymphocytes # 1.7 10^3/uL (0.8-4.8); Lymphocytes % 7.3 %; Mean Corpuscular HGB Conc 31.5 g/dL (30.0-36.0); Mean Corpuscular Hemoglobin 30.2 pg (28.0-34.0); Mean Corpuscular Volume 95.9 fl (80-94); Mean Platelet Volume 9.8 fL (7.4-10.4); Monocytes # 0.8 10^3/uL (0.2-0.9); Monocytes % 3.2 %; Neutrophils % 86.9 %; Nucleated Red Blood Cells % 0 %; Platelet Count 274 10^3/cmm (130-400); Red Blood Count 3.44 10^6/uL (4.1-5.3); Red Cell Distribution Width 16.8 % (12.1-15.1); White Blood Count 23.8 10^3/uL (4.0-10.0)
[2021-08-26 13:18] LABS: Alanine Aminotransferase 26 U/L (0-41); Albumin Level 2.4 g/dL (3.5-5.2); Alkaline Phosphatase 375 IU/L (40-130); Anion Gap 17.8 (5-19); Aspartate Amino Transferase 30 U/L (0-40); Blood Urea Nitrogen 28 mg/dL (8-23); Calcium 7.5 mg/dL (8.5-10.5); Carbon Dioxide 19 mmol/L (22-29); Chloride 103 mmol/L (98-107); Globulin 2.7 g/dL (1.3-4.6); Glucose 267 mg/dL (65-115); Lipase 5 U/L (13-60); Osmolality Calculated 297 mOsm/kg (285-295); Potassium 3.8 mmol/L (3.5-5.1); Sodium 136 mmol/L (136-145); Total Bilirubin 0.3 mg/dL (0.15-1.2); Total Protein 5.1 g/dL (6.6-8.7)
--- NOTE | 2021-08-26 13:20 | CTR_ITS ---
PROCEDURE INFORMATION: Exam: CT Abdomen And Pelvis With Contrast Exam date and time: 08/26/2021 2:08 PM Age: 85 years old Clinical indication: Nausea and vomiting; Additional info: Eval for pathologies TECHNIQUE: Imaging protocol: Computed tomography of the abdomen and pelvis with contrast. Radiation optimization: All CT scans at this facility use at least one of these dose optimization techniques: automated exposure control; mA and/or kV adjustment per patient size (includes targeted exams where dose is matched to clinical indication); or iterative reconstruction. Contrast material: VISI 320; Contrast volume: 95 ml; Contrast route: INTRAVENOUS (IV); COMPARISON: CT abdomen pelvis w con* [id number] 06/02/2021 3:06 PM RADIATION DOSE METRICS: Total DLP (mGy-cm): 1080.71 FINDINGS: Pleural spaces: There is a small bilateral pleural effusions with adjacent atelectasis, right greater than left. Tiny bilateral calcified granulomas noted. Multiple cavitary nodules are again seen scattered throughout both lungs. No pneumothorax. Heart: Mildly enlarged heart. Coronary atherosclerotic calcifications seen. No pericardial effusion. Liver: Interval increase in size of multiple scattered hepatic metastatic lesions. Gallbladder and bile ducts: Normal. No calcified stones. No ductal dilation. Pancreas: Normal. No ductal dilation. Spleen: Normal. No splenomegaly. Adrenal glands: Normal. No mass. Kidneys and ureters: The kidneys demonstrate lobulated contour, consistent with chronic scarring. Right kidney loss of volume seen. No hydronephrosis or nephrolithiasis. Symmetric enhancement the kidneys. Stomach and bowel: There is diffuse thickening of the rectum and colon wall association with mild stranding of the surrounding fat, consistent with proctocolitis. No pneumatosis. A duodenal diverticulum is incidentally noted. Appendix: No evidence of appendicitis. Intraperitoneal space: A small amount of free fluid is present, most prominently in the right upper quadrant and pelvis. No pneumoperitoneum. Arteries: Mild diffuse atherosclerotic disease is present. Lymph nodes: Unremarkable. No enlarged lymph nodes. Urinary bladder: The urinary bladder is decompressed with a Sadler catheter in place. Reproductive: Unremarkable as visualized. Bones/joints: The patient is status post right total hip arthroplasty. Degenerative changes of the spine seen. Old healed fracture deformities noted in the left ribcage. Soft tissues: Unremarkable. CT/CT abdomen pelvis w con* [id number] IMPRESSION: 1. Diffuse proctocolitis. 2. Persistent scattered bilateral pulmonary cavitary nodules, and interval increase in size of scattered hepatic metastatic lesions, consistent progression of metastatic disease.
[2021-08-26 13:54] LABS: Add Urine Culture? Yes; Add Urine Microscopic? YES; Bacteria Urine 1+ /hpf; Bilirubin Urine Neg (Negative); Blood Urine 3+ (Negative); Glucose Urine UA Norm (Normal); Ketones Urine Negative (Negative); Leukocyte Esterase Urine 2+ (Negative); Nitrate Urine Negative (Negative); Protein Urine 1+ (Negative); RBC Urine 0-4 /hpf (0-2); Specific Gravity, Urine 1.015 (1.005-1.030); Urine Appearance Hazy (CLEAR); Urine Color Yellow (Yellow); Urobilinogen Urine Norm (Negative); WBC Urine >100 /hpf (0-5); pH Urine 5 (5-7)
[2021-08-26] MEDS: iodixanol 320 mg/mL 100mL Btl IV (14:10)
[2021-08-26] MEDS: lidocaine 2% viscous 15 ML, aluminum-mag hydrox-simethicon 30 ML, sucralfate oral liq 1 GM PO (14:25)
[2021-08-26] MEDS: metroNIDAZOLE IV 500 MG/100 ML PREMIX 100 MG IV (14:26)
[2021-08-26] MEDS: sodium chloride 0.9% 500 ML IV (14:29)
[2021-08-26] MEDS: cefTRIAXone 1,000 MG in sodium chloride 0.9% (plus) 50 ML 100 MG IV (14:35)
[2021-08-26] MEDS: ondansetron 4 MG Tablet PO (14:40)
--- NOTE | 2021-08-26 17:37 | P.HP_ITS ---
Providers/Chief Complaint Admitting Physician: Santiago Ng MD Primary Care Provider: Sergio Sandoval MD Chief Complaint: WEAKNESS History of Present Illness Aung Lizarraga is a 85 year old male with PMHx of hypertension, BPH, DM-2, anemia, GERD and hyperlipidemia, CKD (3b), chronic recurrent cystitis and longstanding bladder outlet obstruction from BPH Ca prostate with liver mets, recent right hip dislocation s/p right hip hemiarthroplasty? Was brought in with chief complaint of nausea/vomiting, diarrhea and decreased p.o. intake , started last Saturday, he was also complaining of decreased appetite , generalized weakness multiple episodes of loose stools,patient was discharged from hospital 06/07 for hip dislocation.? Since then, patient has had difficulty walking.? There is concern that there may be right-sided hip erythema for which patient was admitted to [facility] for IV antibiotics.?Patient was discharged from [facility] on 08/16/2021 and started on Keflex daily.?2 days ago, patient was performing self cath and son noticed that there is pus in the urine. Patient denies any fever or chills, abdominal pain, chest pain, shortness breath, palpitation lightheadedness.? Patient denies any melena or hematochezia.? Patient denies any urinary complaints at this time. Upon arrival in the ER he was worked up for above-mentioned complaint: Pertinent imaging studies: CT abdomen pelvis w con:Diffuse proctocolitis,Persistent scattered bilateral pulmonary cavitary nodules, and interval increase in size of scattered hepatic metastatic lesions, consistent progression of metastatic disease. Pertinent labs: WBC 23.8 H&H 10.4/ 33 , PLT : 274 Serum sodium 136 serum potassium 3.8, BUN / serum creatinine: 28/1.8 , Lactic acid: procalcitonin: Urinalysis; dirty Review of Systems General: Reports: 10 or more systems reviewed and unremarkable except in HPI and below Const: Denies: fever(s), chills, body aches, change in appetite or diaphoresis Card: Denies: palpitations, edema, swelling of feet/ankles, dyspnea on exertion, orthopnea or leg pain with exertion Resp: Denies: dyspnea, productive cough, wheezing or pain on inspiration GI: Reports: nausea, vomiting and diarrhea; Denies: abdominal pain or constipation : Denies: flank pain or difficulty urinating Musc: Denies: back pain, extremity pain or extremity swelling Neuro: Reports: difficulty walking; Denies: headache(s) or confusion Medications/Allergies Home Medications Medication Instructions Recorded Confirmed Last Taken Type acetaminophen 325 mg capsule 650 mg PO Q6H PRN 05/27/19 08/26/21 06/15/20 History (Tylenol) glipizide 5 mg tablet 5 mg PO DAILY tab 05/27/19 08/26/21 08/23/21 History pantoprazole 20 mg tablet,delayed 20 mg PO DAILY 05/27/19 08/26/21 08/26/21 History release simvastatin 20 mg tablet 20 mg PO DAILY tab 05/27/19 08/26/21 08/25/21 History ferrous sulfate 325 mg (65 mg 325 mg PO BID 12/04/19 08/26/21 08/26/21 History iron) tablet (Feosol) folic acid 1 mg tablet 1 mg PO DAILY #30 tab 02/06/20 08/26/21 08/26/21 Rx ascorbic acid (vitamin C) 500 mg PO BID 02/23/20 08/26/21 08/26/21 History lisinopril 20 mg tablet 20 mg PO BID 02/23/20 08/26/21 08/26/21 History metoprolol tartrate 25 mg tablet 25 mg PO BID tab 02/23/20 08/26/21 08/26/21 History methenamine hippurate 1 gram tablet 1 g PO BID #180 tab 02/06/21 08/26/21 0 08/26/21 Rx tamsulosin 0.4 mg capsule See Rx Instructions .ROUTE 02/27/21 08/26/21 08/26/21 Rx .COMPLEX #90 cap hydrocodone 5 mg-acetaminophen 325 1 tab PO Q6H PRN #14 tab 06/05/21 08/26/21 U nknown Rx mg tablet cephalexin 500 mg capsule 500 mg PO BID 08/26/21 08/26/21 08/26/21 History cyanocobalamin (vitamin B-12) 100 100 mcg PO DAILY 08/26/21 08/26/21 08/26/21 History mcg tablet (Vitamin B-12) magnesium oxide 400 mg (241.3 mg 400 mg PO DAILY 08/26/21 08/26/21 08/26/21 History magnesium) tablet potassium chloride 20 mEq 20 meq PO DAILY 08/26/21 08/26/21 08/26/21 History tablet,extended release Allergies Allergy/AdvReac Type Severity Reaction Status Date / Time No Known Allergies Allergy Verified 06/07/21 13:56 PFSH Acute PFSH: Medical History Acute cystitis with hematuria Acute kidney injury 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 Mother , GANGRENE IN STOMACH No problems noted. Social History Smoking and tobacco status: former smoker Alcohol intake: never Marital status: Current occupational status: retired History of recent travel: No Vitals/I&O/Wt Last Vital Signs Temp 99.0 F 08/26/21 12:36 Pulse 100 08/26/21 17:24 Resp 18 08/26/21 17:24 BP 104/60 08/26/21 17:24 Pulse Ox 96 08/26/21 17:24 Weight last 48 hrs Weight 68.039 kg Physical Exam Narrative: Alert awake not in acute distress HENMT: COMMON NORMALS: normocephalic and atraumatic HEAD & SCALP: normocephalic and atraumatic EXTERNAL EAR: Yes external ears normal Eye: GENERAL EYE: appearance normal, both eyes and all related structures Chest: COMMONS NORMALS: normal inspection of the chest and normal palpation of entire chest wall CHEST: Yes Symmetrical chest wall rise Resp: COMMON NORMALS: normal respiratory effort, No retractions, No use of accessory muscles and clear to auscultation bilaterally EFFORT & INSPECTION: Yes symmetric chest movement AUSCULTATION: clear to auscultation bilaterally Cardio: COMMON NORMALS: regular rate, regular rhythm, S1 normal heart sound present, S2 normal heart sound present, No gallops present (Cardio), No murmurs present (Cardio), No rub (Cardio) and Peripheral pulses 2+ throughout RATE: regular rate RHYTHM: regular rhythm HEART SOUNDS: S1 normal heart sound present and S2 normal heart sound present PERIPHERAL PULSES: Peripheral pulses 2+ throughout GI: COMMON NORMALS: Normal to inspection, nondistended, normoactive bowel sounds present, Soft to palpation, non-tender, No hepatosplenomegaly present and no masses AUSCULTATION: Yes normoactive bowel sounds PALPATION: Yes Soft to palpation and Yes No hepatosplenomegaly present RECTAL EXAM: Yes deferred Extremity: COMMON NORMALS: no clubbing, cyanosis or edema and no pedal edema Data : 08/26/21 12:12 08/26/21 12:12 Micro: Microbiology 08/26/21 14:56 Blood Culture - Preliminary Blood SPECIMEN COLLECTED 08/26/21 14:24 Blood Culture - Preliminary Blood SPECIMEN COLLECTED A&P Assessment and plan (1) Dehydration: Status: Acute (2) Diarrhea: Status: Acute (3) Proctocolitis: Status: Acute (4) Acute UTI: Status: Acute (5) Hypertension: Status: Acute Qualifiers: Hypertension type: essential hypertension Qualified Code(s): I10 - Essential (primary) hypertension (6) Liver mass: Status: Acute (7) Prostate cancer: Status: Acute Plan Assessment: UTI Proctocolitis hypertension, BPH, DM-2, Anemia GERD CA prostate with liver mets CKD stage III Plan: Blood culture Urine culture Follow stool studies Continue Zosyn Continue IV hydration with normal saline Monitor BMP intake output charting Avoid nephrotoxic Carb consistent diet Monitor fingerstick glucose Low-dose sliding scale insulin Heparin for DVT prophylaxis #CODE STATUS: Limited resuscitation: No intubation and mechanical ventilation Attestations Medical Necessity Statement*: Patient needs to be in hospital for management of UTI, proctocolitis.Anticipated length of stay greater than 2 midnights. Time Spent in Patient Care: Greater than 35 minutes (>than 50% of time spent in counselling and/or direct pt care on unit) . Coding Level of Care Code Acute Service Desk Analyst for Chg Fwd Diagnoses Dehydration E86.0 Diarrhea R19.7 Proctocolitis K52.9 Acute UTI N39.0 Hypertension I10 Hypertension type: essential hypertension Liver mass R16.0 Prostate cancer C61
[2021-08-26] MEDS: sodium chloride 0.9% 1,000 ML 75 ML IV (19:40)
[2021-08-26] MEDS: heparin 5,000 unit/mL INJ 1 mL 5000 UNIT SUBCUT (19:45)
[2021-08-26] MEDS: piperacillin-tazobactam 3.375 GM in sodium chloride 0.9% (plus) 50 ML IV (19:47)
[2021-08-27] VITALS (11 sets, daily range): BP systolic 90–100; BP diastolic 45–62; PULSE 76–107; RESP 16–20; TEMP 36.5–37.6; O2SAT 94–97
[2021-08-27] MEDS: piperacillin-tazobactam 3.375 GM in sodium chloride 0.9% (plus) 50 ML IV ×3 (03:36→19:47)
[2021-08-27 06:05] LABS: Basophils # 0.2 10^3/uL (0.0-0.1); Basophils % 0.6 %; Eosinophils # 0.1 10^3/uL (0.0-0.8); Eosinophils % 0.3 %; Hematocrit 28.1 % (42.0-52.0); Hemoglobin 8.9 g/dL (11.7-16.6); Lymphocytes % 7.2 %; Mean Corpuscular HGB Conc 31.7 g/dL (30.0-36.0); Mean Corpuscular Hemoglobin 30.6 pg (28.0-34.0); Mean Corpuscular Volume 96.6 fl (80-94); Mean Platelet Volume 9.7 fL (7.4-10.4); Monocytes # 0.9 10^3/uL (0.2-0.9); Monocytes % 3.1 %; Neutrophils # 24.06 10^3/uL (1.8-7.7); Neutrophils % 86.2 %; Nucleated Red Blood Cells % 0 %; Platelet Count 247 10^3/cmm (130-400); Red Blood Count 2.91 10^6/uL (4.1-5.3); Red Cell Distribution Width 17.1 % (12.1-15.1); White Blood Count 27.9 10^3/uL (4.0-10.0)
[2021-08-27] MEDS: sodium chloride 0.9% 1,000 ML 75 ML IV ×2 (06:08→14:49)
[2021-08-27 06:26] LABS: Lactic Sepsis W/Reflex 1.3 mmol/L (0.5-2.2)
[2021-08-27 06:28] LABS: Alanine Aminotransferase 21 U/L (0-41); Alkaline Phosphatase 329 IU/L (40-130); Anion Gap 15.6 (5-19); Aspartate Amino Transferase 28 U/L (0-40); Blood Urea Nitrogen 31 mg/dL (8-23); Calcium 6.9 mg/dL (8.5-10.5); Carbon Dioxide 18 mmol/L (22-29); Chloride 108 mmol/L (98-107); Creatinine Clr Calc Pharmacy 26.3323; Globulin 2.3 g/dL (1.3-4.6); Glucose 129 mg/dL (65-115); Osmolality Calculated 294 mOsm/kg (285-295); Potassium 3.6 mmol/L (3.5-5.1); Sodium 138 mmol/L (136-145); Total Bilirubin 0.3 mg/dL (0.15-1.2); Total Protein 4.3 g/dL (6.6-8.7)
[2021-08-27 06:30] LABS: Procalcitonin 2.91 ng/mL (0-0.5)
[2021-08-27 06:39] LABS: Glucose Point of Care 175 mg/dL (70-110)
[2021-08-27 06:39] LABS: Glucose Point of Care 140 mg/dL (70-110)
[2021-08-27 06:59] LABS: Slide Review Slide Review Perform
[2021-08-27 12:17] LABS: Glucose Point of Care 164 mg/dL (70-110)
--- NOTE | 2021-08-27 17:12 | PM.PN ---
Subjective Subjective: Patient was seen and examined this morning currently he is denying any abdominal pain nausea vomiting No reported diarrhea, unfortunately WBC count has trended up to 27,000, patient is afebrile, maintaining a good MAP, urine culture gram-negative sophie. Medications: Medication Review Details: Generic Name Dose Route Start Last Admin Trade Name Freq PRN Reason Stop Dose Admin Heparin Sodium (Po rcine) 5,000 unit 08/26/21 17:45 08/27/21 06:09 Heparin 5,000 Un it/Ml Inj 1 Ml SUBCUT Not Given Q12H MALDONADO Sodium Chloride 1,000 mls @ 100 m ls/hr 08/26/21 17:45 08/27/21 14:49 Sodium Chloride 0.9% IV 75 mls/hr .Q10H MALDONADO Administration Piperacillin Sod/T azobactam 50 mls @ 12.5 mls /hr 08/26/21 17:45 08/27/21 16:31 Sod 3.375 gm/ So dium Chloride IV Infused Q8H [facility] Infusion Protocol Insulin Human Lisp ro 0 unit 08/27/21 08:00 08/27/21 12:30 Insulin Lispro 1 00 Unit/1 Ml SUBCUT Not Given TIDWM [facility] Protocol Vitals/I&O/Wt Last Vital Signs Temp 97.7 F 08/27/21 12:40 Pulse 97 08/27/21 13:59 Resp 18 08/27/21 12:40 BP 95/51 08/27/21 12:40 Pulse Ox 94 08/27/21 12:40 08/27/21 08/27/21 08/27/21 06:59 14:59 22:59 Intake Total 955 / 1725 1100 / 1100 50 / 1150 Output Total 300 / 300 50 / 50 Balance 655 / 1425 1050 / 1050 50 / 1100 Weight last 48 hrs Weight 68.039 kg Physical Exam Narrative: Alert awake not in acute distress HENMT: COMMON NORMALS: normocephalic, atraumatic and external ears normal HEAD & SCALP: normocephalic and atraumatic EXTERNAL EAR: Yes external ears normal Eye: GENERAL EYE: appearance normal, both eyes and all related structures Chest: COMMONS NORMALS: normal inspection of the chest and normal palpation of entire chest wall CHEST: Yes Symmetrical chest wall rise Resp: COMMON NORMALS: normal respiratory effort, No retractions, No use of accessory muscles and clear to auscultation bilaterally EFFORT & INSPECTION: Yes symmetric chest movement AUSCULTATION: clear to auscultation bilaterally Cardio: COMMON NORMALS: regular rate, regular rhythm, S1 normal heart sound present, S2 normal heart sound present, No gallops present (Cardio), No murmurs present (Cardio), No rub (Cardio) and Peripheral pulses 2+ throughout RATE: regular rate RHYTHM: regular rhythm HEART SOUNDS: S1 normal heart sound present and S2 normal heart sound present PERIPHERAL PULSES: Peripheral pulses 2+ throughout GI: COMMON NORMALS: Normal to inspection, nondistended, normoactive bowel sounds present, Soft to palpation, non-tender, No hepatosplenomegaly present and no masses AUSCULTATION: Yes normoactive bowel sounds PALPATION: Yes Soft to palpation and Yes No hepatosplenomegaly present RECTAL EXAM: Yes deferred Extremity: COMMON NORMALS: no clubbing, cyanosis or edema and no pedal edema Data : 08/27/21 05:42 08/27/21 05:42 Micro: Microbiology 08/26/21 14:56 Blood Culture - Preliminary Blood NEGATIVE TO DATE 08/26/21 14:24 Blood Culture - Preliminary Blood NEGATIVE TO DATE 08/26/21 13:10 Urine Culture - Preliminary Urine,Clean Catch Gram Negative Rods A&P Assessment and plan (1) Dehydration: Status: Acute (2) Diarrhea: Status: Acute (3) Proctocolitis: Status: Acute (4) Acute UTI: Status: Acute (5) Hypertension: Status: Acute Qualifiers: Hypertension type: essential hypertension Qualified Code(s): I10 - Essential (primary) hypertension (6) Liver mass: Status: Acute (7) Prostate cancer: Status: Acute Plan Assessment: UTI Proctocolitis hypertension, BPH, DM-2, Anemia GERD CA prostate with liver mets CKD stage III Plan: Blood culture Urine culture:GNR Follow stool studies: Continue Zosyn Continue IV hydration with normal saline Monitor BMP intake output charting Avoid nephrotoxic Carb consistent diet Monitor fingerstick glucose Low-dose sliding scale insulin Heparin for DVT prophylaxis #CODE STATUS: Limited resuscitation: No intubation and mechanical ventilation Attestations Medical Necessity Statement*: In Hospital for management of UTI colitis. Time Spent in Patient Care: Greater than 35 minutes (>than 50% of time spent in counselling and/or direct pt care on unit). Coding Level of Care Code Acute Animal Physiologist for Chg Fwd Exam Detailed Diagnoses Dehydration E86.0 Diarrhea R19.7 Proctocolitis K52.9 Acute UTI N39.0 Hypertension I10 Hypertension type: essential hypertension Liver mass R16.0 Prostate cancer C61
[2021-08-27] MEDS: heparin 5,000 unit/mL INJ 1 mL 5000 UNIT SUBCUT (17:45)
[2021-08-27] MEDS: insulin lispro 100 unit/1 mL SUBCUT (17:47)
[2021-08-27 18:09] LABS: Glucose Point of Care 173 mg/dL (70-110)
[2021-08-27 18:09] LABS: Glucose Point of Care 152 mg/dL (70-110)
[2021-08-27 20:01] LABS: Glucose Point of Care 112 mg/dL (70-110)
[2021-08-27] MEDS: FUROsemide 10 mg/mL SDV 2mL 20 MG IVP (22:44)
[2021-08-28] VITALS (10 sets, daily range): BP systolic 88–96; BP diastolic 43–53; PULSE 81–92; RESP 16; TEMP 36.6–37.3; O2SAT 95–97
[2021-08-28] MEDS: acetaminophen 325 mg Tablet 650 MG PO (03:41)
[2021-08-28] MEDS: piperacillin-tazobactam 3.375 GM in sodium chloride 0.9% (plus) 100 ML IV ×2 (03:55→12:27)
[2021-08-28] MEDS: heparin 5,000 unit/mL INJ 1 mL 5000 UNIT SUBCUT ×2 (05:39→16:40)
[2021-08-28 05:42] LABS: Hematocrit 27.8 % (42.0-52.0); Hemoglobin 8.3 g/dL (11.7-16.6); Mean Corpuscular HGB Conc 29.9 g/dL (30.0-36.0); Mean Corpuscular Hemoglobin 30.3 pg (28.0-34.0); Mean Corpuscular Volume 101.5 fl (80-94); Mean Platelet Volume 9.5 fL (7.4-10.4); Platelet Count 220 10^3/cmm (130-400); Red Blood Count 2.74 10^6/uL (4.1-5.3); Red Cell Distribution Width 17.3 % (12.1-15.1)
[2021-08-28 06:06] LABS: Alanine Aminotransferase 15 U/L (0-41); Albumin Level 1.8 g/dL (3.5-5.2); Alkaline Phosphatase 311 IU/L (40-130); Anion Gap 15.4 (5-19); Aspartate Amino Transferase 20 U/L (0-40); Blood Urea Nitrogen 42 mg/dL (8-23); Calcium 7.6 mg/dL (8.5-10.5); Carbon Dioxide 16 mmol/L (22-29); Chloride 111 mmol/L (98-107); Globulin 2.7 g/dL (1.3-4.6); Glucose 101 mg/dL (65-115); Osmolality Calculated 299 mOsm/kg (285-295); Potassium 3.4 mmol/L (3.5-5.1); Sodium 139 mmol/L (136-145); Total Bilirubin 0.4 mg/dL (0.15-1.2); Total Protein 4.5 g/dL (6.6-8.7)
[2021-08-28 06:08] LABS: Slide Review Slide Review Perform
[2021-08-28 06:10] LABS: Absolute Segmented Neutrophil 15.8 10/cmm (1.6-7.1); Lymphocytes 8 %; Monocytes Absolute 1.3 10^3/cmm (0.1-0.6); Segmented Neutrophils 63 %; Total Cells Counted 100 (0-100)
[2021-08-28 06:11] LABS: Absolute Neutrophil 21.8 10^3/cmm (1.4-6.5); Anisocytosis 1+; Eosinophils 0 %; Macrocytosis 1+; Platelet Estimate Normal (Normal); Poikilocytosis 1+
[2021-08-28 06:40] LABS: Glucose Point of Care 111 mg/dL (70-110)
--- NOTE | 2021-08-28 10:29 | PC.CHAP ---
Pastoral Care Encounter/Spiritual Assessment Type of Contact [] Declined loans officer visit [] Patient/Family/Request visit [] Outpatient visit [] Follow-up visit [] Physician referral [] Code/Alert [x] Routine visit [] Staff referral [] Actively dying [] Patient sleeping [] Family support [] [] Out of room [] Palliative care [] [] Receiving care in room [] Pre-surgical visit [] Trauma [] Long length of stay [] ICU visit [] Other: Relational/Emotional Strength [x] Patient feels connected with others/family/visitors/staff [] Distress [] Loneliness/isolation [] Abandonment Spirituality of Patient [] Person of Pita [] Attends Tenriism of their Pita [x] Believes in Prayer [] Reads Bible or Voodoo materials [] There are Spiritual issues to be addressed Habilitative Interventionist Interventions [x] Prayer [] Active listening [] Non-anxious presence [] Spiritual/emotional support [] Crisis/trauma care [] Spiritual counseling [] Bereavement support [] Provided bereavement packet [] Provided Bible/devotional materials [] Provided toy/stuffed animal, coloring book to patient or family member [] Provided Communion [] Anointing/[place] [] Salvation [x] Completed spiritual assessment [] Other: Impact on Illness or Injury [] Angry [] Fearful [] Anxious [] Often cries [] Exhaustion [] Unable to work [] Unable to attend orthodoxy [] Unable to walk/stand [] Unable to read [] Unable to drive [] Unable to eat/drink [] Unable to sleep [] Unable to be with family [] Patient intubated [] Other: Summary Time spent with patient
[2021-08-28 12:03] LABS: Glucose Point of Care 166 mg/dL (70-110)
[2021-08-28 12:04] LABS: Glucose Point of Care 166 mg/dL (70-110)
[2021-08-28] MEDS: insulin lispro 100 unit/1 mL SUBCUT ×2 (12:28→18:17)
[2021-08-28 15:27] LABS: Iron 22 ug/dL (59-158)
[2021-08-28 15:30] LABS: Unsaturated Iron Binding < 17 ug/dL (112-347)
[2021-08-28] MEDS: sodium chloride 0.9% 1,000 ML 50 ML IV (15:46)
--- NOTE | 2021-08-28 16:43 | P.PN_ITS ---
Subjective Subjective: Hospital course, labs appreciated. On examination patient lying comfortably in bed. Sleeping. Wakes up to verbal cue. Able to answer questions completely. Denies any nausea, vomiting, headache. Slightly hard of hearing. Has remained afebrile. Blood pressure is borderline. T-max in last 24 hours 99.7 Fahrenheit yesterday evening. As per the patient did have infection of the right hip where he had the surgery before at [facility]. He got treated with IV and oral antibiotics. Currently is on Keflex and 500 twice daily. As per the he also has history of C. difficile in the past. Patient complaining of occasional episodes of diarrhea for last 3 days. Vitals/I&O/Wt Last Vital Signs Temp 99.0 F 08/28/21 16:00 Pulse 86 08/28/21 16:00 Resp 16 08/28/21 16:00 BP 92/43 08/28/21 16:00 Pulse Ox 95 08/28/21 16:00 08/28/21 08/28/21 08/28/21 06:59 14:59 22:59 Intake Total 170 / 1320 1072 / 1072 Output Total 100 / 100 Balance 170 / 1195 1072 / 1072 -100 / 972 Physical Exam Narrative: Alert awake not in acute distress HENMT: COMMON NORMALS: normocephalic, atraumatic and external ears normal HEAD & SCALP: normocephalic and atraumatic EXTERNAL EAR: Yes external ears normal Eye: GENERAL EYE: appearance normal, both eyes and all related structures Chest: COMMONS NORMALS: normal inspection of the chest and normal palpation of entire chest wall CHEST: Yes Symmetrical chest wall rise Resp: COMMON NORMALS: normal respiratory effort, No retractions, No use of accessory muscles and clear to auscultation bilaterally EFFORT & INSPECTION: Yes symmetric chest movement AUSCULTATION: clear to auscultation bilaterally Cardio: COMMON NORMALS: regular rate, regular rhythm, S1 normal heart sound present, S2 normal heart sound present, No gallops present (Cardio), No murmurs present (Cardio), No rub (Cardio) and Peripheral pulses 2+ throughout RATE: regular rate RHYTHM: regular rhythm HEART SOUNDS: S1 normal heart sound present and S2 normal heart sound present PERIPHERAL PULSES: Peripheral pulses 2+ throughout GI: COMMON NORMALS: Normal to inspection, nondistended, normoactive bowel sounds present, Soft to palpation, non-tender, No hepatosplenomegaly present and no masses AUSCULTATION: Yes normoactive bowel sounds PALPATION: Yes Soft to palpation and Yes No hepatosplenomegaly present RECTAL EXAM: Yes deferred Extremity: COMMON NORMALS: no clubbing, cyanosis or edema and no pedal edema Data : 08/28/21 05:23 08/28/21 05:23 Micro: Microbiology 08/26/21 13:10 Urine Culture - Final Urine,Clean Catch Pseudomonas aeruginosa 08/26/21 14:56 Blood Culture - Preliminary Blood NEGATIVE TO DATE 08/26/21 14:24 Blood Culture - Preliminary Blood NEGATIVE TO DATE A&P Assessment and plan (1) Sepsis: Status: Acute (2) Pseudomonas urinary tract infection: Status: Acute (3) Proctocolitis: Status: Acute (4) Dehydration: Status: Acute (5) Diarrhea: Status: Acute (6) Hypertension: Status: Acute Qualifiers: Hypertension type: essential hypertension Qualified Code(s): I10 - Essential (primary) hypertension (7) Liver mass: Status: Acute (8) Prostate cancer: Status: Acute Plan Sepsis: Criteria met with leukocytosis, soft blood pressures, BECKI on CKD. Most likely secondary to Pseudomonas UTI and possible colitis. Persistent leukocytosis. Blood cultures so far negative. Urine culture results and sensitivities are appreciated. Switch from Zosyn to cefepime 1 g IV daily as per creatinine clearance of 25. History of C. difficile: Currently having occasional episodes of diarrhea. Persistent leukocytosis. For now start on vancomycin 125 mg p.o. 4 times daily. We will plan to continue antibiotics for at least 10 days post finishing of IV antibiotics. CKD: Baseline creatinine 1.7-2.1. Has gone as high as 2.7 with the last 1 year. Currently 2.2. Monitor urine output. Medical reconstruction done for nephrotoxic drugs. Remove Sadler in a.m. depending on urine output. Anemia: Chronic. Hemoglobin stable at 8.3-8.9. Check iron panel, vitamin B12, folate level. Start on oral iron supplementation. Hypertension: Goal blood pressure less than 140/90 mmHg. Blood pressure soft as above. Hold off on antihypertensives for now. Takes metoprolol 25 mg twice daily at home. For now start 12.5 milligrams twice daily to avoid reflex tachycardia. Start normal saline at 50 cc/h for gentle IV hydration. Restart chronic home medication including vitamin C, Lipitor, ferrous sulfate, folic acid, methenamine hippurate, metoprolol, Flomax. For now hold off on Keflex and return to home oral antibiotics. Will try to get outpatient documentation from outpatient ID physician. Limited resuscitation. Protonix OPD prophylaxis. Heparin 5000 every 12 hourly for DVT prophylaxis. Cardiac carb consistent diet. Attestations Medical Necessity Statement*: Requires further hospitalization to further management of sepsis secondary to Pseudomonas UTI, possible seeded, anemia Time Spent in Patient Care: Greater than 35 minutes Coding Level of Care Code Acute Epic Interface Analyst for [facility] Fwd Diagnoses Dehydration E86.0 Diarrhea R19.7 Proctocolitis K52.9 Hypertension I10 Hypertension type: essential hypertension Liver mass R16.0 Prostate cancer C61 Sepsis A41.9 Pseudomonas urinary tract infection N39.0; B96.5
[2021-08-28 16:59] LABS: Glucose Point of Care 148 mg/dL (70-110)
[2021-08-28] MEDS: ascorbic acid 500 mg Tablet PO (18:08)
[2021-08-28] MEDS: ferrous sulfate EC 325 mg Tablet PO (18:09)
[2021-08-28] MEDS: metoprolol tartrate 25 mg Tablet 12.5 MG PO (18:09)
--- NOTE | 2021-08-28 18:56 | PC.NURSE ---
Patient resting in bed at this time. Denies pain. Frequent loose stools throughout this shift. Pressure ulcer stage 2 upon arrival. excoriation over bottom and scrotum with barrier cream applied. Frequent turning throughout shift with pillow placement to reduce pressure on bottom and promote healing. Oliguria this shift with 100ml output.
[2021-08-28 19:30] LABS: Vitamin B12 > 2000 pg/mL (232-1245)
[2021-08-28 19:31] LABS: Folate Level 6.9 ng/mL (4.5-32.2)
[2021-08-29] VITALS (11 sets, daily range): BP systolic 97–121; BP diastolic 31–61; PULSE 74–97; RESP 15–18; TEMP 36.2–37.1; O2SAT 93–99
[2021-08-29] MEDS: heparin 5,000 unit/mL INJ 1 mL 5000 UNIT SUBCUT ×2 (05:56→17:09)
[2021-08-29 06:15] LABS: Basophils # 0.1 10^3/uL (0.0-0.1); Basophils % 0.4 %; Eosinophils # 0.2 10^3/uL (0.0-0.8); Eosinophils % 1.1 %; Hematocrit 27.4 % (42.0-52.0); Hemoglobin 8.5 g/dL (11.7-16.6); Lymphocytes # 1.9 10^3/uL (0.8-4.8); Lymphocytes % 10.1 %; Mean Corpuscular Hemoglobin 30.2 pg (28.0-34.0); Mean Corpuscular Volume 97.5 fl (80-94); Mean Platelet Volume 9.8 fL (7.4-10.4); Monocytes # 0.7 10^3/uL (0.2-0.9); Monocytes % 3.5 %; Neutrophils # 15.68 10^3/uL (1.8-7.7); Neutrophils % 83.7 %; Nucleated Red Blood Cells % 0 %; Platelet Count 245 10^3/cmm (130-400); Red Blood Count 2.81 10^6/uL (4.1-5.3); Red Cell Distribution Width 17.5 % (12.1-15.1); White Blood Count 18.7 10^3/uL (4.0-10.0)
[2021-08-29 06:36] LABS: Cholesterol 98 mg/dL (0-200); HDL Cholesterol 20 mg/dL (60-100); LDL Cholesterol Calculated 56 mg/dL (50-129); Triglycerides 108 mg/dL (0-150); VLDL Cholestrol Calculation 22 mg/dL (0-30)
[2021-08-29 06:44] LABS: Alanine Aminotransferase 13 U/L (0-41); Albumin Level 2.6 g/dL (3.5-5.2); Alkaline Phosphatase 357 IU/L (40-130); Anion Gap 19.4 (5-19); Aspartate Amino Transferase 20 U/L (0-40); Blood Urea Nitrogen 34 mg/dL (8-23); Calcium 7.9 mg/dL (8.5-10.5); Carbon Dioxide 17 mmol/L (22-29); Chloride 109 mmol/L (98-107); Globulin 1.9 g/dL (1.3-4.6); Glucose 64 mg/dL (65-115); Osmolality Calculated 300 mOsm/kg (285-295); Potassium 3.4 mmol/L (3.5-5.1); Sodium 142 mmol/L (136-145); Total Bilirubin 0.5 mg/dL (0.15-1.2); Total Protein 4.5 g/dL (6.6-8.7)
[2021-08-29 07:25] LABS: Slide Review Slide Review Perform
[2021-08-29 07:34] LABS: Estmated Average Glucose 85; Hemoglobin A1C 4.6 % (4.0-6.0)
--- NOTE | 2021-08-29 08:00 | CT_ITS ---
WS: [id number] NONCONTRAST CT RIGHT HIP TECHNIQUE: Noncontrast CT RIGHT hip with coronal and sagittal reformatted images. CLINICAL INFORMATION: possible site of infection COMPARISON: None. DLP: 747.[address] scans at [facility] use at least one of these dose optimization techniques: automated e xposure control; mA and/or kV adjustment per patient size (includes targeted exams where dose is matc hed to clinical indication); or iterative reconstruction. FINDINGS: Postoperative changes RIGHT RUBENS. Osteopenia. Vascular calcification. No evidence of hardware loosenin g. Normal RIGHT pubic rami. Sadler catheter. Small amount of free fluid in the RIGHT lower pelvis. No significant joint effusion. Small amount of induration in the RIGHT buttocks area of decubitus ulcers . Small amount of induration and cellulitis. No fluid collections or abscess. No evidence of osteomye litis. CT/CT hip RT wo con* [id number] IMPRESSION: 1. No evidence of osteomyelitis or drainable abscess or fluid collection. 2. Postoperative changes RIGHT RUBENS. No acute fractures. No hardware loosening. 3. Slight cellulitis area of decubitus ulcers RIGHT buttock. No fluid collecti ons or abscess. 4. Vascular calcification and osteopenia.
[2021-08-29] MEDS: metoprolol tartrate 25 mg Tablet 12.5 MG PO ×2 (08:04→17:09)
[2021-08-29] MEDS: ascorbic acid 500 mg Tablet PO ×2 (08:04→17:10)
[2021-08-29] MEDS: folic acid 1 mg Tablet PO ×2 (08:04→17:09)
[2021-08-29] MEDS: tamsulosin 0.4 mg Capsule PO (08:04)
[2021-08-29] MEDS: pantoprazole DR 40 mg Tablet PO (08:04)
[2021-08-29] MEDS: atorvastatin 40 mg Tablet 20 MG PO (08:04)
[2021-08-29] MEDS: ferrous sulfate EC 325 mg Tablet PO ×2 (08:05→17:10)
[2021-08-29 08:16] LABS: Glucose Point of Care 92 mg/dL (70-110)
[2021-08-29 08:16] LABS: Glucose Point of Care 77 mg/dL (70-110)
[2021-08-29] MEDS: cefepime 1,000 MG in sodium chloride 0.9% (plus) 50 ML 100 MG IV (09:26)
[2021-08-29] MEDS: sodium chloride 0.9% 1,000 ML 50 ML IV (10:49)
[2021-08-29 11:41] LABS: Glucose Point of Care 175 mg/dL (70-110)
[2021-08-29] MEDS: dextrose 5%-sod chloride 0.9% 1,000 ML 75 ML IV (12:01)
--- NOTE | 2021-08-29 13:56 | P.PN_ITS ---
Subjective Subjective: No events overnight. Lying comfortably in bed on examination. Wakes up to verbal cue. Denies any nausea vomiting, headache. States feeling better. States worked with physical therapy today. States would like to go to SNF if possible for further rehabitation. Vitals/I&O/Wt Last Vital Signs Temp 97.8 F 08/29/21 11:27 Pulse 80 08/29/21 11:27 Resp 18 08/29/21 11:27 BP 97/31 08/29/21 11:27 Pulse Ox 98 08/29/21 11:27 08/28/21 08/29/21 08/29/21 22:59 06:59 14:59 Intake Total 100 / 1172 2802.5 / 2802.5 Output Total 100 / 100 300 / 400 Balance -100 / 972 -200 / 772 2802.5 / 2802.5 Physical Exam Narrative: Alert awake not in acute distress HENMT: COMMON NORMALS: normocephalic, atraumatic and external ears normal HEAD & SCALP: normocephalic and atraumatic EXTERNAL EAR: Yes external ears normal Eye: GENERAL EYE: appearance normal, both eyes and all related structures Chest: COMMONS NORMALS: normal inspection of the chest and normal palpation of entire chest wall CHEST: Yes Symmetrical chest wall rise Resp: COMMON NORMALS: normal respiratory effort, No retractions, No use of accessory muscles and clear to auscultation bilaterally EFFORT & INSPECTION: Yes symmetric chest movement AUSCULTATION: clear to auscultation bilaterally Cardio: COMMON NORMALS: regular rate, regular rhythm, S1 normal heart sound present, S2 normal heart sound present, No gallops present (Cardio), No murmurs present (Cardio), No rub (Cardio) and Peripheral pulses 2+ throughout RATE: regular rate RHYTHM: regular rhythm HEART SOUNDS: S1 normal heart sound present and S2 normal heart sound present PERIPHERAL PULSES: Peripheral pulses 2+ throughout GI: COMMON NORMALS: Normal to inspection, nondistended, normoactive bowel sounds present, Soft to palpation, non-tender, No hepatosplenomegaly present and no masses AUSCULTATION: Yes normoactive bowel sounds PALPATION: Yes Soft to palpation and Yes No hepatosplenomegaly present RECTAL EXAM: Yes deferred Extremity: COMMON NORMALS: no clubbing, cyanosis or edema and no pedal edema Data : 08/29/21 04:30 08/29/21 04:30 Micro: Microbiology 08/28/21 15:54 MRSA Culture - Final Nose 08/26/21 03:36 Stool Lactoferrin - Final Stool Enteric Pathogens (PCR) - Final C.difficile Toxin B Gene (PCR) - Final Occult Blood (FIT) - Final 08/26/21 13:10 Urine Culture - Final Urine,Clean Catch Pseudomonas aeruginosa A&P Assessment and plan (1) Sepsis: Status: Acute (2) Pseudomonas urinary tract infection: Status: Acute (3) Proctocolitis: Status: Acute (4) Dehydration: Status: Acute (5) Diarrhea: Status: Acute (6) Hypertension: Status: Acute Qualifiers: Hypertension type: essential hypertension Qualified Code(s): I10 - Essential (primary) hypertension (7) Liver mass: Status: Acute (8) Prostate cancer: Status: Acute Plan Sepsis: Criteria met with leukocytosis, soft blood pressures, BECKI on CKD. Most likely secondary to Pseudomonas UTI and possible colitis. Persistent leukocytosis. Though improving now. Blood cultures so far negative. Urine culture results and sensitivities are appreciated. Switch from Zosyn to cefepime 1 g IV daily as per creatinine clearance of 25. Day 3/[address] head done which was negative for any abscess, collection or source of infection. History of C. difficile: Currently having occasional episodes of diarrhea. Persistent leukocytosis. ATLAS score 7 Increased dose of vancomycin to 250 mg 4 times daily. We will plan for continued antibiotics at least 10 days post addition of IV antibiotics. CKD: Baseline creatinine 1.7-2.1. Has gone as high as 2.7 with the last 1 year. Stable to slight worsening today. Monitor urine output. Medical reconstruction done for nephrotoxic drugs. Remove Sadler in a.m. depending on urine output. D5 NS at 75 cc/h. Anemia: Chronic. Hemoglobin stable at 8.3-8.9. Blood work consistent with iron deficiency anemia. Started on oral iron supplementation. Hypertension: Goal blood pressure less than 140/90 mmHg. Blood pressure soft as above. Hold off on antihypertensives for now. Takes metoprolol 25 mg twice daily at home. For now start 12.5 milligrams twice daily to avoid reflex tachycardia. Start normal saline at 50 cc/h for gentle IV hydration. Restart chronic home medication including vitamin C, Lipitor, ferrous sulfate, folic acid, methenamine hippurate, metoprolol, Flomax. For now hold off on Keflex and return to home oral antibiotics. Will try to get outpatient documentation from outpatient ID physician. Limited resuscitation. Protonix for PUD prophylaxis. Heparin 5000 every 12 hourly for DVT prophylaxis. Cardiac carb consistent diet. Discharge planning: Plan to discharge home with home health versus SNF for further rehabilitation depending on PT evaluation once IV antibiotic course is finished for UTI on oral vancomycin for C. difficile Attestations Medical Necessity Statement*: Requested hospitalization for management of sepsis secondary to Pseudomonas UTI, C. 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
--- NOTE | 2021-08-29 14:20 | PC.SOCIAL ---
IMM update IMM updated with patient. Copy Pg 2 provided. Verbalized an understanding. Initialled, dated, timed, and placed in chart.
--- NOTE | 2021-08-29 16:32 | PC.NURSE ---
Patients vital stable. Sadler is clean and intact with adequate output. Patient is set to discharge tomorrow. Will continue to monitor and give report to night nurse.
[2021-08-29 16:59] LABS: Glucose Point of Care 179 mg/dL (70-110)
[2021-08-29 20:51] LABS: Glucose Point of Care 192 mg/dL (70-110)
[2021-08-30] VITALS (15 sets, daily range): BP systolic 109–138; BP diastolic 49–72; PULSE 71–82; RESP 16–18; TEMP 36.6–37.2; O2SAT 91–99
[2021-08-30] MEDS: dextrose 5%-sod chloride 0.9% 1,000 ML 75 ML IV (01:27)
[2021-08-30 05:07] LABS: Basophils % 0.4 %; Eosinophils # 0.2 10^3/uL (0.0-0.8); Eosinophils % 1.4 %; Hematocrit 24.8 % (42.0-52.0); Hemoglobin 7.4 g/dL (11.7-16.6); Lymphocytes # 1.2 10^3/uL (0.8-4.8); Lymphocytes % 10.7 %; Mean Corpuscular HGB Conc 29.8 g/dL (30.0-36.0); Mean Corpuscular Hemoglobin 29.8 pg (28.0-34.0); Mean Platelet Volume 9.4 fL (7.4-10.4); Monocytes # 0.5 10^3/uL (0.2-0.9); Monocytes % 4.4 %; Neutrophils % 82.3 %; Nucleated Red Blood Cells % 0 %; Platelet Count 198 10^3/cmm (130-400); Red Blood Count 2.48 10^6/uL (4.1-5.3); Red Cell Distribution Width 17.4 % (12.1-15.1); White Blood Count 11.1 10^3/uL (4.0-10.0)
[2021-08-30] MEDS: heparin 5,000 unit/mL INJ 1 mL 5000 UNIT SUBCUT ×2 (05:12→17:24)
[2021-08-30 05:30] LABS: Alanine Aminotransferase 11 U/L (0-41); Albumin Level 2.5 g/dL (3.5-5.2); Alkaline Phosphatase 417 IU/L (40-130); Anion Gap 16.9 (5-19); Aspartate Amino Transferase 16 U/L (0-40); Blood Urea Nitrogen 32 mg/dL (8-23); Calcium 7.7 mg/dL (8.5-10.5); Carbon Dioxide 15 mmol/L (22-29); Chloride 113 mmol/L (98-107); Globulin 2.1 g/dL (1.3-4.6); Glucose 198 mg/dL (65-115); Osmolality Calculated 306 mOsm/kg (285-295); Sodium 142 mmol/L (136-145); Total Bilirubin 0.5 mg/dL (0.15-1.2); Total Protein 4.6 g/dL (6.6-8.7)
[2021-08-30 05:47] LABS: Potassium 2.9 mmol/L (3.5-5.1)
[2021-08-30 06:02] LABS: Glucose Point of Care 212 mg/dL (70-110)
[2021-08-30 06:04] LABS: Slide Review Slide Review Perform
[2021-08-30] MEDS: pantoprazole DR 40 mg Tablet PO (08:35)
[2021-08-30] MEDS: ferrous sulfate EC 325 mg Tablet PO ×2 (08:35→17:23)
[2021-08-30] MEDS: metoprolol tartrate 25 mg Tablet 12.5 MG PO ×2 (08:35→17:23)
[2021-08-30] MEDS: folic acid 1 mg Tablet PO ×2 (08:35→17:24)
[2021-08-30] MEDS: atorvastatin 40 mg Tablet 20 MG PO (08:35)
[2021-08-30] MEDS: tamsulosin 0.4 mg Capsule PO (08:35)
[2021-08-30] MEDS: ascorbic acid 500 mg Tablet PO ×2 (08:35→17:23)
[2021-08-30] MEDS: cefepime 1,000 MG in sodium chloride 0.9% (plus) 50 ML 100 MG IV (08:36)
[2021-08-30] MEDS: potassium chloride ER 20 mEq Tablet 40 MEQ PO ×3 (11:41→14:24)
[2021-08-30 12:33] LABS: Glucose Point of Care 246 mg/dL (70-110)
[2021-08-30] MEDS: sodium chloride 0.9% (100 ml) 100 ML (14:25)
--- NOTE | 2021-08-30 16:04 | PM.PN ---
Subjective Subjective: No events overnight. Patient states he is feeling better. Denies any nausea vomiting, headache. States diarrhea has subsided quite a bit. Pain comfortably in bed. Asking when can he be transferred to SNF. Vitals/I&O/Wt Last Vital Signs Temp 98.8 F 08/30/21 15:51 Pulse 77 08/30/21 15:51 Resp 16 08/30/21 15:51 BP 133/72 08/30/21 15:51 Pulse Ox 98 08/30/21 15:51 08/30/21 08/30/21 08/30/21 06:59 14:59 22:59 Intake Total 1100 / 3902.5 1050 / 1050 100 / 1150 Output Total 600 / 601 Balance 500 / 3301.5 1050 / 1050 100 / 1150 Physical Exam Narrative: Alert awake not in acute distress, pallor present HENMT: COMMON NORMALS: normocephalic, atraumatic and external ears normal HEAD & SCALP: normocephalic and atraumatic EXTERNAL EAR: Yes external ears normal Eye: GENERAL EYE: appearance normal, both eyes and all related structures Chest: COMMONS NORMALS: normal inspection of the chest and normal palpation of entire chest wall CHEST: Yes Symmetrical chest wall rise Resp: COMMON NORMALS: normal respiratory effort, No retractions, No use of accessory muscles and clear to auscultation bilaterally EFFORT & INSPECTION: Yes symmetric chest movement AUSCULTATION: clear to auscultation bilaterally Cardio: COMMON NORMALS: regular rate, regular rhythm, S1 normal heart sound present, S2 normal heart sound present, No gallops present (Cardio), No murmurs present (Cardio), No rub (Cardio) and Peripheral pulses 2+ throughout RATE: regular rate RHYTHM: regular rhythm HEART SOUNDS: S1 normal heart sound present and S2 normal heart sound present PERIPHERAL PULSES: Peripheral pulses 2+ throughout GI: COMMON NORMALS: Normal to inspection, nondistended, normoactive bowel sounds present, Soft to palpation, non-tender, No hepatosplenomegaly present and no masses AUSCULTATION: Yes normoactive bowel sounds PALPATION: Yes Soft to palpation and Yes No hepatosplenomegaly present RECTAL EXAM: Yes deferred Extremity: COMMON NORMALS: no clubbing, cyanosis or edema and no pedal edema Data : 08/30/21 04:53 08/30/21 04:53 Micro: Microbiology 08/26/21 03:36 Stool Lactoferrin - Final Stool Enteric Pathogens (PCR) - Final Parasite Antigen Panel - Final C.difficile Toxin B Gene (PCR) - Final Occult Blood (FIT) - Final 08/28/21 15:54 MRSA Culture - Final Nose A&P Assessment and plan (1) Sepsis: Status: Acute (2) Pseudomonas urinary tract infection: Status: Acute (3) Proctocolitis: Status: Acute (4) Dehydration: Status: Acute (5) Diarrhea: Status: Acute (6) Hypertension: Status: Acute Qualifiers: Hypertension type: essential hypertension Qualified Code(s): I10 - Essential (primary) hypertension (7) Liver mass: Status: Acute (8) Prostate cancer: Status: Acute Plan Sepsis: Criteria met with leukocytosis, soft blood pressures, BECKI on CKD. Resolved. Most likely secondary to Pseudomonas UTI and possible colitis. Blood cultures so far negative. Urine culture results and sensitivities are appreciated. Continue with cefepime 1 g IV daily as per creatinine clearance of 25. Day 4/[address] head done which was negative for any abscess, collection or source of infection. History of C. difficile: Currently having occasional episodes of diarrhea. Persistent leukocytosis. ATLAS score 7 Continue with vancomycin to 250 mg 4 times daily. We will plan for continued antibiotics at least 10 days post addition of IV antibiotics. CKD: Baseline creatinine 1.7-2.1. Has gone as high as 2.7 with the last 1 year. Monitor urine output. Medical reconstruction done for nephrotoxic drugs. Remove Sadler. Stop IV fluids. Anemia: Chronic. Hemoglobin stable at 8.3-8.9. Hemoglobin slightly worse today most likely dilutional. Transfuse 1 unit of PRBC. Continue with oral iron supplementation. Hypertension: Goal blood pressure less than 140/90 mmHg. Blood pressure is better. Hold off on antihypertensives for now. Takes metoprolol 25 mg twice daily at home. Continue with metoprolol 12.5 mg twice daily. Continue other chronic medications. For now hold off on Keflex and return to home oral antibiotics. Will try to get outpatient documentation from outpatient ID physician. Limited resuscitation. Protonix for PUD prophylaxis. Heparin 5000 every 12 hourly for DVT prophylaxis. Cardiac carb consistent diet. Discharge planning: Patient has been accepted at [facility]. Plan to discharge within next 24 hours after completion of IV antibiotics on oral vancomycin for next 10 days. Attestations Medical Necessity Statement*: Requires further hospitalization for management of sepsis secondary to UTI, C. 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
--- NOTE | 2021-08-30 16:23 | PC.NURSE ---
Patients saini discontinued, patient has supplies to self cath. Q6. Vitals stable. Hgb 7.4, 1 unit of blood currently running. Patient has had multiple loose bowel movements today. Q2 turns. Dressings changed. Will continue to monitor and give report to night nurse.
[2021-08-30 17:26] LABS: Glucose Point of Care 211 mg/dL (70-110)
[2021-08-30 20:47] LABS: Glucose Point of Care 223 mg/dL (70-110)
[2021-08-31 04:00] VITALS: BP 130/62; PULSE 86; RESP 18; TEMP 36.5; O2SAT 96
[2021-08-31 04:25] VITALS: PULSE 81
[2021-08-31] MEDS: heparin 5,000 unit/mL INJ 1 mL 5000 UNIT SUBCUT (05:03)
[2021-08-31 06:29] LABS: Glucose Point of Care 164 mg/dL (70-110)
[2021-08-31 07:58] VITALS: BP 150/67; PULSE 82; RESP 16; TEMP 36.7; O2SAT 98
[2021-08-31] MEDS: tamsulosin 0.4 mg Capsule PO (08:33)
[2021-08-31] MEDS: metoprolol tartrate 25 mg Tablet 12.5 MG PO (08:34)
[2021-08-31] MEDS: pantoprazole DR 40 mg Tablet PO (08:34)
[2021-08-31] MEDS: ferrous sulfate EC 325 mg Tablet PO (08:34)
[2021-08-31] MEDS: atorvastatin 40 mg Tablet 20 MG PO (08:34)
[2021-08-31] MEDS: folic acid 1 mg Tablet PO (08:34)
[2021-08-31] MEDS: ascorbic acid 500 mg Tablet PO (08:34)
[2021-08-31] MEDS: cefepime 1,000 MG in sodium chloride 0.9% (plus) 50 ML 100 MG IV (10:24)
--- NOTE | 2021-08-31 10:44 | PC.SOCIAL ---
IMM update IMM updated with patient. Verbalized an understanding. Copy Pg 2 provided. Initialled, dated, timed, and placed in chart.
[2021-08-31 10:53] LABS: SARS Covid-2 Antigen Negative (Negative)
[2021-08-31 11:47] VITALS: BP 135/66; PULSE 85; RESP 18; TEMP 36.7; O2SAT 99
[2021-08-31 11:52] LABS: Glucose Point of Care 242 mg/dL (70-110)
[2021-08-31 11:53] LABS: Basophils # 0.1 10^3/uL (0.0-0.1); Basophils % 0.5 %; Eosinophils # 0.1 10^3/uL (0.0-0.8); Eosinophils % 0.6 %; Hematocrit 31.9 % (42.0-52.0); Hemoglobin 9.8 g/dL (11.7-16.6); Lymphocytes # 1.6 10^3/uL (0.8-4.8); Mean Corpuscular HGB Conc 30.7 g/dL (30.0-36.0); Mean Corpuscular Hemoglobin 29.8 pg (28.0-34.0); Mean Platelet Volume 9.5 fL (7.4-10.4); Monocytes # 0.6 10^3/uL (0.2-0.9); Monocytes % 6.6 %; Neutrophils # 7.15 10^3/uL (1.8-7.7); Neutrophils % 74.4 %; Nucleated Red Blood Cells % 0 %; Platelet Count 216 10^3/cmm (130-400); Red Blood Count 3.29 10^6/uL (4.1-5.3); Red Cell Distribution Width 18.9 % (12.1-15.1); White Blood Count 9.6 10^3/uL (4.0-10.0)
--- NOTE | 2021-08-31 12:10 | PM.DCS ---
Discharge Providers Date of Admission: 08/26/21 15:34 Date of Discharge: August 31, 2021 Attending Provider at Admission: Santiago Ng MD Attending Provider at Discharge: Ameya Mondragon MD Primary Care Provider: Sergio Sandoval MD Diagnoses at Discharge Discharge Diagnosis (1) Sepsis: Status: Acute (2) Pseudomonas urinary tract infection: Status: Acute (3) Proctocolitis: Status: Acute (4) Dehydration: Status: Acute (5) Diarrhea: Status: Acute (6) Hypertension: Status: Acute Qualifiers: Hypertension type: essential hypertension Qualified Code(s): I10 - Essential (primary) hypertension (7) Liver mass: Status: Acute (8) Prostate cancer: Status: Acute Reason for Visit Reason for Visit: WEAKNESS Brief History: History as per HPI: Aung Lizarraga is a 85 year old male?with PMHx of hypertension, BPH, DM-2, anemia, GERD and hyperlipidemia, CKD (3b), chronic recurrent cystitis and longstanding bladder outlet obstruction from BPH Ca prostate with liver mets, recent right hip dislocation s/p right hip hemiarthroplasty? Was brought in with chief complaint of?nausea/vomiting, diarrhea and decreased p.o. intake , started last Saturday, he was also complaining of decreased appetite , generalized weakness multiple episodes of loose stools,patient was discharged from hospital 06/07 for hip dislocation.? Since then, patient has had difficulty walking.? There is concern that there may be right-sided hip erythema for which patient was admitted to [facility] for IV antibiotics.?Patient was discharged from [facility] on 08/16/2021 and started on Keflex daily.?2 days ago, patient was performing self cath and son noticed that there is pus in the urine. Patient denies any fever or chills, abdominal pain, chest pain, shortness breath, palpitation lightheadedness.? Patient denies any melena or hematochezia.? Patient denies any urinary complaints at this time. Hospital Course Hospital Course Patient will need to go for hospital for further evaluation and management of sepsis secondary to possible UTI. He was started on broad-spectrum antibiotics. During hospitalization his blood cultures remain negative. Urine culture positive for Pseudomonas. Antibiotics were tailored as per culture sensitivities. His hospitalization was complicated by him having persistent leukocytosis, developing diarrhea. CT hip was done which ruled out any abscess or active source of infection. Patient C. difficile came back positive for which she was started on oral vancomycin. Post initiation of oral vancomycin his white count came down appropriately. During hospitalization he was also found to have blood loss anemia most likely secondary to slow GI bleed secondary to colitis. He required 1 unit of blood transfusion. His hemoglobin has remained stable. Safe discharge plan were discussed in detail with patient and patient's family. They were both agreeable to 6 discharge to SNF for further rehabitation. Patient is been discharged in hemodynamically stable condition to [facility]. He is advised to follow-up with surgery within 2 weeks for a possible colonoscopy as an outpatient. Physical Exam Narrative: Alert awake not in acute distress, pallor present HENMT: COMMON NORMALS: normocephalic, atraumatic and external ears normal HEAD & SCALP: normocephalic and atraumatic EXTERNAL EAR: Yes external ears normal Eye: GENERAL EYE: appearance normal, both eyes and all related structures Chest: COMMONS NORMALS: normal inspection of the chest and normal palpation of entire chest wall CHEST: Yes Symmetrical chest wall rise Resp: COMMON NORMALS: normal respiratory effort, No retractions, No use of accessory muscles and clear to auscultation bilaterally EFFORT & INSPECTION: Yes symmetric chest movement AUSCULTATION: clear to auscultation bilaterally Cardio: COMMON NORMALS: regular rate, regular rhythm, S1 normal heart sound present, S2 normal heart sound present, No gallops present (Cardio), No murmurs present (Cardio), No rub (Cardio) and Peripheral pulses 2+ throughout RATE: regular rate RHYTHM: regular rhythm HEART SOUNDS: S1 normal heart sound present and S2 normal heart sound present PERIPHERAL PULSES: Peripheral pulses 2+ throughout GI: COMMON NORMALS: Normal to inspection, nondistended, normoactive bowel sounds present, Soft to palpation, non-tender, No hepatosplenomegaly present and no masses AUSCULTATION: Yes normoactive bowel sounds PALPATION: Yes Soft to palpation and Yes No hepatosplenomegaly present RECTAL EXAM: Yes deferred Extremity: COMMON NORMALS: no clubbing, cyanosis or edema and no pedal edema Discharge Data Studies Completed and Pending Completed Studies During Hospitalization Category Date Time Status CT abdomen pelvis w con* [id number] Urgent Cat Scan 08/26/21 13:[address] hip RT wo con* [id number] Routine Cat Scan 08/29/21 08:00 Completed Pending at discharge Category Date Time Status Blood Culture Stat Lab 08/26/21 14:56 Results Comprehensive Metabolic Panel Stat Lab 08/31/21 11:40 Received Radiology Impressions Abdomen/Pelvis CT 08/26/21 13:20 IMPRESSION: 1. Diffuse proctocolitis. 2. Persistent scattered bilateral pulmonary cavitary nodules, and interval increase in size of scattered hepatic metastatic lesions, consistent progression of metastatic disease. Hip CT 08/29/21 08:00 IMPRESSION: 1. No evidence of osteomyelitis or drainable abscess or fluid collection. 2. Postoperative changes RIGHT RUBENS. No acute fractures. No hardware loosening. 3. Slight cellulitis area of decubitus ulcers RIGHT buttock. No fluid collections or abscess. 4. Vascular calcification and osteopenia. Microbiology 08/26/21 03:36 Stool Stool Lactoferrin - Final 08/26/21 03:36 Stool Enteric Pathogens (PCR) - Final 08/26/21 03:36 Stool Parasite Antigen Panel - Final 08/26/21 03:36 Stool C.difficile Toxin B Gene (PCR) - Final 08/26/21 03:36 Stool Occult Blood (FIT) - Final 08/28/21 15:54 Nose MRSA Culture - Final 08/26/21 13:10 Urine,Clean Catch Urine Culture - Final Pseudomonas aeruginosa 08/26/21 14:56 Blood Blood Culture - Preliminary NEGATIVE TO DATE 08/26/21 14:24 Blood Blood Culture - Preliminary NEGATIVE TO DATE Laboratory Results WBC 9.6 10^3/uL (4.0-10.0) 08/31/21 11:40 RBC 3.29 10^6/uL (4.1-5.3) L 08/31/21 11:40 Hgb 9.8 g/dL (11.7-16.6) L 08/31/21 11:40 Hct 31.9 % (42.0-52.0) L 08/31/21 11:40 MCV 97.0 fl (80-94) H 08/31/21 11:40 MCH 29.8 pg (28.0-34.0) 08/31/21 11:40 MCHC 30.7 g/dL (30.0-36.0) 08/31/21 11:40 RDW 18.9 % (12.1-15.1) H 08/31/21 11:40 Plt Count 216 10^3/cmm (130-400) 08/31/21 11:40 MPV 9.5 fL (7.4-10.4) 08/31/21 11:40 Neut % (Auto) 74.4 % 08/31/21 11:40 Lymph % (Auto) 17.0 % 08/31/21 11:40 Placer % (Auto) 6.6 % 08/31/21 11:40 Eos % (Auto) 0.6 % 08/31/21 11:40 Baso % (Auto) 0.5 % 08/31/21 11:40 Neut # (Auto) 7.15 10^3/uL (1.8-7.7) 08/31/21 11:40 Lymph # (Auto) 1.6 10^3/uL (0.8-4.8) 08/31/21 11:40 Placer # (Auto) 0.6 10^3/uL (0.2-0.9) 08/31/21 11:40 Eos # (Auto) 0.1 10^3/uL (0.0-0.8) 08/31/21 11:40 Baso # (Auto) 0.1 10^3/uL (0.0-0.1) 08/31/21 11:40 Nucleated RBC % (auto) 0 % 08/31/21 11:40 Total Counted 100 (0-100) 08/28/21 05:23 Atypical Lymphs % 0.0 % (0-5) 08/28/21 05:23 Absolute Neutrophils 21.8 10^3/cmm (1.4-6.5) H 08/28/21 05:23 Segmented Neutrophils 63 % 08/28/21 05:23 Abs Segm Neuts (Man) 15.8 10/cmm (1.6-7.1) H 08/28/21 05:23 Band Neutrophils 24.0 % 08/28/21 05:23 Abs Band Neuts (Man) 6.0 10^3/cmm (0.0-1.2) H 08/28/21 05:23 Absolute Lymphocytes 2.0 10^3/cmm (1.2-3.4) 08/28/21 05:23 Lymphocytes (Manual) 8 % 08/28/21 05:23 Monocytes (Manual) 5.0 % 08/28/21 05:23 Absolute Monocytes 1.3 10^3/cmm (0.1-0.6) H 08/28/21 05:23 Eosinophils (Manual) 0 % 08/28/21 05:23 Absolute Eosinophils 0.0 10^3/cmm (0.0-0.7) 08/28/21 05:23 Basophils (Manual) 0.0 % 08/28/21 05:23 Absolute Basophils 0.0 10^3/cmm (0.0-0.2) 08/28/21 05:23 Nucleated RBCs # 0.0 /100WBC 08/31/21 11:40 Platelet Estimate Normal (Normal) 08/28/21 05:23 Poikilocytosis 1+ H 08/28/21 05:23 Anisocytosis 1+ H 08/28/21 05:23 Macrocytosis 1+ H 08/28/21 05:23 Sodium 142 mmol/L (136-145) 08/30/21 04:53 Potassium 2.9 mmol/L (3.5-5.1) L 08/30/21 04:53 Chloride 113 mmol/L (98-107) H 08/30/21 04:53 Carbon Dioxide 15 mmol/L (22-29) L 08/30/21 04:53 Anion Gap 16.9 (5-19) 08/30/21 04:53 BUN 32 mg/dL (8-23) H 08/30/21 04:53 Creatinine 1.8 mg/dL (0.7-1.2) H 08/30/21 04:53 GFR Calculation Not Reportable 08/30/21 04:53 Glucose 198 mg/dL (65-115) H 08/30/21 04:53 POC Glucose 242 mg/dL (70-110) H 08/31/21 11:45 Estimat Average Glucose 85 08/29/21 04:30 Hemoglobin A1c 4.6 % (4.0-6.0) 08/29/21 04:30 Calculated Osmolality 306 mOsm/kg (285-295) H 08/30/21 04:53 Lactic Acid 1.3 mmol/L (0.5-2.2) 08/27/21 05:42 Calcium 7.7 mg/dL (8.5-10.5) L 08/30/21 04:53 Iron 22 ug/dL (59-158) L 08/28/21 05:23 TIBC 38.88338 mcg/dl 08/28/21 05:23 % Saturation 56.0 % (20-50) H 08/28/21 05:23 Unsat Iron Binding < 17 ug/dL (112-347) L 08/28/21 05:23 Total Bilirubin 0.5 mg/dL (0.15-1.2) 08/30/21 04:53 AST 16 U/L (0-40) 08/30/21 04:53 ALT 11 U/L (0-41) 08/30/21 04:53 Alkaline Phosphatase 417 IU/L (40-130) H 08/30/21 04:53 Total Protein 4.6 g/dL (6.6-8.7) L 08/30/21 04:53 Albumin 2.5 g/dL (3.5-5.2) L 08/30/21 04:53 Globulin 2.1 g/dL (1.3-4.6) 08/30/21 04:53 Triglycerides 108 mg/dL (0-150) 08/29/21 04:30 Cholesterol 98 mg/dL (0-200) 08/29/21 04:30 LDL Cholesterol, Calc 56 mg/dL (50-129) 08/29/21 04:30 Total VLDL Cholesterol 22 mg/dL (0-30) 08/29/21 04:30 HDL Cholesterol 20 mg/dL (60-100) L 08/29/21 04:30 Cholesterol/HDL Ratio 4.90 mg/dL (1.0-5.00) 08/29/21 04:30 Lipase 5 U/L (13-60) L 08/26/21 12:12 Vitamin B12 > 2000 pg/mL (232-1245) H 08/28/21 18:18 Folate 6.9 ng/mL (4.5-32.2) 08/28/21 18:18 Procalcitonin 2.91 ng/mL (0-0.5) H 08/27/21 05:42 Urine Color Yellow (Yellow) 08/26/21 13:10 Urine Appearance Hazy (CLEAR) A 08/26/21 13:10 Urine pH 5 (5-7) 08/26/21 13:10 Ur Specific [place] 1.015 (1.005-1.030) 08/26/21 13:10 Urine Protein 1+ (Negative) H 08/26/21 13:10 Urine Glucose (UA) Norm (Normal) 08/26/21 13:10 Urine Ketones Negative (Negative) 08/26/21 13:10 Urine Blood 3+ (Negative) H 08/26/21 13:10 Urine Nitrate Negative (Negative) 08/26/21 13:10 Urine Bilirubin Neg (Negative) 08/26/21 13:10 Urine Urobilinogen Norm mg/dL (Negative) 08/26/21 13:10 Ur Leukocyte Esterase 2+ (Negative) H 08/26/21 13:10 Urine RBC 0-4 /hpf (0-2) H 08/26/21 13:10 Urine WBC >100 /hpf (0-5) H 08/26/21 13:10 Ur Squamous Epith Cells None /hpf (0-5) 08/26/21 13:10 Amorphous Sediment Not Reportable 08/26/21 13:10 Urine Bacteria 1+ /hpf (NONE) H 08/26/21 13:10 SARS-CoV-2 Ag (Rapid) Negative (Negative) 08/31/21 10:15 Blood Type A Positive 08/30/21 11:23 Rho(D) Type Positive 08/30/21 11:23 Antibody Screen Negative 08/30/21 11:23 Crossmatch See Detail 08/30/21 11:23 Vitals Last Vital Signs Temp 98.0 F 08/31/21 11:47 Pulse 85 08/31/21 11:47 Resp 18 08/31/21 11:47 BP 135/66 08/31/21 11:47 Pulse Ox 99 08/31/21 11:47 Discharge Plan Discharge Patient Disposition: Xfer SNF Condition: Stable Prescriptions: New vancomycin 250 mg capsule 250 mg PO Q6H 10 Days Qty: 40 0RF Continued ferrous sulfate [Feosol] 325 mg (65 mg iron) tablet 325 mg PO BID 0RF pantoprazole 20 mg tablet,delayed release (DR/EC) 20 mg PO DAILY 0RF acetaminophen [Tylenol] 325 mg capsule 650 mg PO Q6H PRN (Reason: Analgesia) 0RF simvastatin 20 mg tablet 20 mg PO DAILY 0RF glipizide 5 mg tablet 5 mg PO DAILY 0RF metoprolol tartrate 25 mg tablet 25 mg PO BID 0RF ascorbic acid (vitamin C) 500 mg PO BID 0RF methenamine hippurate 1 gram tablet 1 g PO BID Qty: 180 3RF Rx Instructions: Take 1000 mg of vitamin C with each dose of methenamine tamsulosin 0.4 mg capsule See Rx Instructions .ROUTE .COMPLEX Qty: 90 0RF Dose Instruction: TAKE ONE CAPSULE BY MOUTH DAILY Rx Instructions: TAKE ONE CAPSULE BY MOUTH DAILY folic acid 1 mg Tablet 1 mg PO DAILY Qty: 30 0RF hydrocodone-acetaminophen 5-325 mg tablet 1 tab PO Q6H PRN (Reason: pain) Qty: 14 0RF Vitamin B-12 100 mcg Tablet 100 mcg PO DAILY 0RF magnesium oxide 400 mg (241.3 mg magnesium) tablet 400 mg PO DAILY 0RF potassium chloride 20 mEq Tablet Extended Release 20 meq PO DAILY 0RF Held lisinopril 20 mg tablet 20 mg PO BID 0RF Hold Instructions: Resume on 09/07/21. Discontinued cephalexin 500 mg capsule 500 mg PO BID 0RF Discharge Orders: Discharge Order (Routine); Ordered 08/31/21 Ordered By: Ameya Mondragon Referrals: Sergio Sandoval MD [Primary Care Provider] - 7-10 days LILIYA INIGUEZ [Occupational Therapist] - Carlitos Preciado MD [Physician] - 2 weeks (Colonoscopy to rule out GI bleed in 2 weeks posttreatment of C. difficile) Discharge Diet: Advance as tolerated and Usual diet Discharge Activity: Resume usual activity and Increase activity as tolerated Patient Instructions: Opioid Safety Activity Restrictions/Additional Instructions: Please continue taking oral vancomycin 4 times a day for next 10 days. Please check your blood pressure daily. Hold off on lisinopril for now. If your blood pressures remain consistently over 140 systolic then can start lisinopril at a lower dose. Please follow-up with primary care provider within next 1 week. Discharge Attestations Time Spent in Discharge Care*: greater than 30 min Specific Discharge Activities: educating patient, educating and/or supporting family/caregiver, discussing with case folder/social workers/dc planners, documenting/other paperwork and evaluating patient/reviewing data Status at Discharge: Cognitive status at discharge: cognitively intact, Behavioral status at discharge: cooperative, Functional status at discharge: other assisted ambulation, Overall status at discharge: patient is back to baseline Quality Metrics Clinical Quality Measures [ No reported AMI, CVA or VTE this stay] Coding Level of Care Code Acute Chg FW DC note Exam Detailed Diagnoses Sepsis A41.9 Pseudomonas urinary tract infection N39.0; B96.5 Proctocolitis K52.9 Dehydration E86.0 Diarrhea R19.7 Hypertension I10 Hypertension type: essential hypertension Liver mass R16.0 Prostate cancer C61
[2021-08-31 12:19] LABS: Alanine Aminotransferase 16 U/L (0-41); Albumin Level 2.5 g/dL (3.5-5.2); Alkaline Phosphatase 628 IU/L (40-130); Anion Gap 13.6 (5-19); Aspartate Amino Transferase 39 U/L (0-40); Blood Urea Nitrogen 20 mg/dL (8-23); Carbon Dioxide 17 mmol/L (22-29); Chloride 113 mmol/L (98-107); Globulin 2.1 g/dL (1.3-4.6); Glucose 184 mg/dL (65-115); Osmolality Calculated 295 mOsm/kg (285-295); Potassium 4.6 mmol/L (3.5-5.1); Sodium 139 mmol/L (136-145); Total Bilirubin 0.5 mg/dL (0.15-1.2); Total Protein 4.6 g/dL (6.6-8.7)
--- NOTE | 2021-08-31 14:27 | PC.NURSE ---
Report given to Collin Gunn, all questions were answered at this time. Patient was straight cathed before discharged and diaper changed. IV discontinued. Belongings accounted for. Vitals stable.
[2021-08-31 14:28] VITALS: BP 135/66; PULSE 85; RESP 18; TEMP 36.7; O2SAT 99
== END 2021-08-31 14:28 | disposition skilled nursing facility (03) | DRG 371 ==
LOC: ER 15:52 → MEDSURG 18:09
PROVIDERS: Admitting Provider Internal Medicine; Emergency Provider Emergency Medicine; PCP Family Medicine; Visit Provider Student in an Organized Health Care Education/Training Program
DX: A04.72 Enterocolitis due to Clostridium difficile, not specified as recurrent (principal); A41.9 Sepsis, unspecified organism; C78.7 Secondary malignant neoplasm of liver and intrahepatic bile duct; N17.9 Acute kidney failure, unspecified; N30.20 Other chronic cystitis without hematuria; B96.5 Pseudomonas (aeruginosa) (mallei) (pseudomallei) as the cause of diseases classified elsewhere; D50.0 Iron deficiency anemia secondary to blood loss (chronic); E86.0 Dehydration; C61 Malignant neoplasm of prostate; D72.829 Elevated white blood cell count, unspecified; K21.9 Gastro-esophageal reflux disease without esophagitis; E78.5 Hyperlipidemia, unspecified; N40.0 Benign prostatic hyperplasia without lower urinary tract symptoms; N32.0 Bladder-neck obstruction; E11.22 Type 2 diabetes mellitus with diabetic chronic kidney disease; I12.9 Hypertensive chronic kidney disease with stage 1 through stage 4 chronic kidney disease, or unspecified chronic kidney disease; N18.32 Chronic kidney disease, stage 3b; R03.1 Nonspecific low blood-pressure reading; Z98.890 Other specified postprocedural states; Z87.891 Personal history of nicotine dependence
CPT/HCPCS: 36415; 36416; 36430; 73700; 74177; 80053; 80061; 81001; 82274; 82607; 82746; 82962; 83036; 83540; 83550; 83605; 83630; 83690; 84145; 85007; 85025; 86850; 86900; 86920; 87040; 87077; 87086; 87186; 87426; 87493; 87506; 87641; 96365; 96367; 96372; 97110; 97162; 97530; 99285; J0692; J0696; J1644; J1815; J1940; J2543; J3370; J7030; J7040; P9016; P9047; Q0162; Q9967; S0030